=== PATIENT | female | born 1950 | race Caucasian/White ===

== ENCOUNTER 2020-07-10 21:15 | Inpatient (IN) | payer BC ==
[~2020-07-10] VITALS: Ht 167.6 cm; Wt 77.2 kg
--- NOTE | 2020-07-10 21:22 | NUR ---
Patient came to ER with family. C/O shortness of breath x 2 days. Per patient reported, patient had shortness of breath for 2 days, Hx COPD and Asthma, patient used [facility] one hour ETA. A/O,X4, shortness of breath, wheezing right upper lobe, oxygen sat 91 %RA, place patient on monitoring manager and pulse ox.
--- NOTE | 2020-07-10 21:22 | NUR ---
Patient to ER bed 5 to gown for evaluation. Side rails up.
--- NOTE | 2020-07-10 21:25 | NUR ---
ER Dr. Sadler at bedside examining patient.
[2020-07-10] MEDS ORDERED: IPRATROPIUM/ALBUTEROL SULFATE 3 ML AMPUL.NEB (DUONEB) INH ONE (21:30)
--- NOTE | 2020-07-10 21:31 | NUR ---
RT at bedside for Breathing treatment.
[2020-07-10 21:32] VITALS: BP_SYST 151
[2020-07-10] MEDS ORDERED: methylPREDNISolone SOD SUCC/PF 62.5 MG/ML VIAL IM ONE (21:45)
--- NOTE | 2020-07-10 21:46 | NUR ---
RT at bedside for ABG.
--- NOTE | 2020-07-10 21:57 | NUR ---
X-ray at bedside.
--- NOTE | 2020-07-10 22:10 | NUR ---
swabbed Covid -19 and sent to lab.
[2020-07-10] MEDS ORDERED: CLOP75TA32 PO (22:13)
[2020-07-10 22:19] LABS: BASOPHILS # (AUTO) 0.1 K/uL (0.0-0.2); BASOPHILS % (AUTO) 0.6 % (0.0-2.0); EOSINOPHILS # (AUTO) 0.2 K/uL (0.0-0.4); HEMATOCRIT 33.1 % (36-48); HEMOGLOBIN 11.4 g/dL (12.0-16.0); LYMPHOCYTES # (AUTO) 1.5 K/uL (1.0-5.5); LYMPHOCYTES % (AUTO) 14.6 % (20.5-51.5); MEAN CORPUSCULAR HEMOGLOBIN 30 pg (27-31); MEAN CORPUSCULAR HGB CONC 34 % (32-36); MEAN CORPUSCULAR VOLUME 87 fL (79.0-98.0); MONOCYTES # (AUTO) 0.9 K/uL (0.0-1.0); MONOCYTES % (AUTO) 8.7 % (1.7-9.3); NEUTROPHILS # (AUTO) 7.6 K/uL (1.8-7.7); NEUTROPHILS % (AUTO) 74.1 % (40.0-70.0); PLATELET COUNT (AUTO) 205 K/uL (130-430); RED BLOOD CELL COUNT(AUTO) 3.81 MIL/uL (4.2-6.2); RED CELL DISTRIBUTION WIDTH 13.8 % (9.0-15.0); WHITE BLOOD COUNT (AUTO) 10.2 K/uL (4.8-10.8)
[2020-07-10] MEDS ORDERED: METO-442 PO (22:19)
[2020-07-10] MEDS ORDERED: CYM30 PO (22:19)
[2020-07-10] MEDS ORDERED: ASPI-1155 PO (22:19)
[2020-07-10] MEDS ORDERED: SIMV20TA2 PO (22:19)
[2020-07-10] MEDS ORDERED: TRAM100T28 PO (22:19)
[2020-07-10] MEDS ORDERED: ALBMDI INH (22:19)
[2020-07-10] MEDS ORDERED: LISI-600 PO (22:19)
[2020-07-10] MEDS ORDERED: AMIT25TA9 PO (22:19)
--- NOTE | 2020-07-10 22:19 | NUR ---
Medication reconciliation completed with information provided by patient. Any prior medication reconciliation on file was reviewed and corrected.
[2020-07-10 22:36] LABS: CREATININE 7.06 mg/dL (0.55-1.30); POTASSIUM 5.4 mmol/L (3.5-5.1)
[2020-07-10 22:42] LABS: ALBUMIN 3.2 g/dL (3.4-4.8); TOTAL BILIRUBIN 0.5 mg/dL (0.0-1.0)
[2020-07-10 22:58] LABS: PROTHROMBIN TIME 10.6 SECS (9.5-12.5)
[2020-07-10] MEDS ORDERED: cefTRIAXone 1 GM in D5W 50 ML IV ONE (23:15)
[2020-07-10] MEDS ORDERED: AZITHROMYCIN 500 MG in NS 250 ML IV ONE (23:15)
--- NOTE | 2020-07-10 23:30 | NUR ---
Blood for labwork drawn from train electronic technician. Patient tolerated well.
[2020-07-10] MEDS ORDERED: cefTRIAXone 1 GM VIAL ONE (23:39)
[2020-07-10] MEDS ORDERED: AZITHROMYCIN 500 MG/VIAL (ZITHROMAX) IV ONE ×2 (23:40→23:41)
[2020-07-10 23:45] LABS: CKMB RELATIVE INDEX 1.6 (0.0-2.9)
[2020-07-11] VITALS (7 sets, daily range): BP systolic 157–199
[2020-07-11] MEDS ORDERED: NACL 0.9% 1,000 ML IV ONE
--- NOTE | 2020-07-11 | NUR ---
Removed IV right wrist, # 22 gauge angiocath placed to right forearm. Use of asceptic technique. Opsite placed over site. Blood return noted. Blood for lab drawn from site. Flushed with 10 cc of normal saline. No evidence of infiltration noted. Patient tolerated well.
--- NOTE | 2020-07-11 00:39 | NUR ---
Patient will be admitted to care of Dr. Adams. Admitted to Tele unit. Will go to room 122B. Belongings list completed. Complete and up to date summary report printed. SBAR report to be given at bedside with opportunity for questions.
--- NOTE | 2020-07-11 00:59 | NUR ---
ADMISSION NOTE Received patient from ER via gurney. Patient admitted with diagnosis of RENAL FAILURE, POSSIBLE COVID-19. Patient is awake, alert, oriented X 4. Patient oriented to hospital room, call light, toileting, pain management and safety-teach back done. Patient informed that BRANT will be HER nurse and that their room number is 122B. Personal belongings checked and Belongings List documented. Call light within reach.
--- NOTE | 2020-07-11 01:09 | NUR ---
CONSULT: CONSULT CALLED FOR DR. MARIN LEYVA I SPOKE WITH RHONDA HUA REASON FOR CONSULT: HX MO AND STENT REQUESTING CONSULT: DR MARIN Hayward DOCUMENT MANAGEMENT TECHNICIAN PHONE NUMBER: [phone]
--- NOTE | 2020-07-11 01:11 | NUR ---
CONSULT: CONSULT CALLED FOR DR. GRIDER I SPOKE WITH BOO HUA REASON FOR CONSULT: RENAL FAILURE REQUESTING CONSULT: DR. MARIN Hayward LOG DRIVER PHONE NUMBER: [phone]
--- NOTE | 2020-07-11 02:15 | NUR ---
HYGIENE CARE NOTE HYGIENE CARE IS PROVIDED AT THIS TIME, FRESH GOWN, UNDERWEAR, AND LINENS ARE PROVIDED. PATIENT IS REPOSITIONED FOR COMFORT. PATIENT TOLERATED WELL. CALL LIGHT PLACED WITHIN REACH. BED IS LOCKED, ALARMED, AND AT THE LOWEST LEVEL.
--- NOTE | 2020-07-11 02:30 | NUR ---
BLADDER SCAN PATIENT VERBALIZED URGE TO PEE, SHE WAS ASSISTED WITH THE BEDPAN WELL BEDSIDE COMMODE, SHE STATES SHE IS "UNABLE TO GO". BLADDER SCAN PERFORMED AT THIS TIME SHOWED ONLY 273 ML URINE RETENTION. SHE IS REPOSITIONED BACK INTO BED FOR COMFORT. CALL LIGHT PLACED WITHIN REACH. BED IS LOCKED, ALARMED, AND AT THE LOWEST LEVEL.
--- NOTE | 2020-07-11 04:30 | NUR ---
SLEEPING PRONE POSITION NOTE PATIENT IS SLEEPING IN PRONE POSITION EDUCATED. SHE IS STABLE, NO SIGNS OF RESPIRATORY DISTRESS. CALL LIGHT IS WITHIN REACH. BED IS LOCKED, ALARMED, AND AT THE LOWEST LEVEL.
--- NOTE | 2020-07-11 04:31 | NUR ---
DR. SIERRA CONSULT: HE DO NOT WANT TO BE CALLED FOR CONSULT HE SAID HE CAN SEE HIS CONSULTS AUTOMATICALLY
--- NOTE | 2020-07-11 05:30 | NUR ---
BED ALARM REFUSED/ SAFETY EDUCATION PATIENT REFUSES BED ALARM AT THIS TIME DESPITE EDUCATIONAL EFFORTS, WILL CONTINUE TO ENCOURAGE SAFETY EDUCATION AND ROUND FREQUENTLY FOR SAFETY. PATIENT IS ASSISTED TO BEDSIDE COMMODE WITHIN MINIMAL ASSIST AT THIS TIME, SHE WAS ABLE TO MAKE A VOID ONCE RN LEFT THE ROOM, PATIENT STATES SHE IS "UNABLE TO GO WHEN SOMEONE IS WATCHING OR NEARBY". BABY MONITOR WAS USED TO MONITOR HER SAFETY MORE CLOSELY.
--- NOTE | 2020-07-11 06:11 | NUR ---
PAGED I PAGED DR. MARIN Thomson SPOKE WITH CRITICAL ACCESS HOSPITALKIERAN HUA
--- NOTE | 2020-07-11 06:15 | NUR ---
COMMUNICATION W/ DR. FUNES Y. DR. FUNES HAS PAGED BACK AT THIS TIME, IT WAS COMMUNICATED TO HIM THAT PATIENT'S LAB WORK COMPLETED IN E.R. SHOWS ELEVATED BUN, CR, BUN, AND PATIENT'S RESPIRATORY SOUNDS ARE WET WITH CRACKLES. HAS REQUESTED TO D/C NORMAL SALINE ORDERED BY MD IN ER. ORDER READ BACK, VERIFIED, AND ENTERED. DOSE WILL NOT BE GIVEN.
--- NOTE | 2020-07-11 06:45 | NUR ---
CLOSING NOTE PATIENT HAD SOME SHORTNESS OF BREATH MOVING FROM GURNEY TO BED WHEN RECEIVED FROM ER. SHE WAS ENCOURAGED TO SLEEP IN PRONE POSITION, PATIENT IS NO LONGER SHORT OF BREATH SINCE SLEEPING IN PROBE POSITION. SHE SLEPT WELL THROUGHOUT THE SHIFT. AT THIS TIME, PATIENT IS RESTING IN BED, STABLE, NO SIGNS OF RESPIRATORY DISTRESS. CALL LIGHT IS WITHIN REACH. BED IS LOCKED, ALARMED, AND AT THE LOWEST LEVEL. FALL, SAFETY, ASPIRATION, ISOLATION, AND RESPIRATORY PRECAUTIONS HAVE BEEN TAKEN THROUGHOUT THE SHIFT. WILL CONTINUE TO MONITOR UNTIL SHIFT REPORT IS GIVEN AT BEDSIDE TO AM NURSE.
--- NOTE | 2020-07-11 06:55 | NUR ---
DR. GRIDER ROUNDS DR. GRIDER IS AT BEDSIDE AT THIS TIME MAKING ROUNDS. HE IS SPEAKING TO THE PATIENT.
--- NOTE | 2020-07-11 08:00 | NUR ---
Initial notes In bed, awake and oriented. afebrile, has cough. uses bedside commode. On O2 3l. Update plan of care and consults. call light within reach. Enc to call for help as needed.
[2020-07-11] MEDS ORDERED: METOPROLOL SUCCINATE 25 MG TAB.SR.24H (TOPROL XL) PO SCH (09:00)
--- NOTE | 2020-07-11 09:15 | NUR ---
Paged pt wants breathing treatment, patient stated that she is having hard time breathing, O2 sat is 95% in 2l. Paged oral therapist at this time.
[2020-07-11] MEDS ORDERED: IPRATROPIUM/ALBUTEROL SULFATE 3 ML AMPUL.NEB (DUONEB) INH ONE (09:30)
[2020-07-11] MEDS ORDERED: IPRATROPIUM/ALBUTEROL SULFATE 3 ML AMPUL.NEB (DUONEB) ONE (09:53)
[2020-07-11] MEDS: IPRATROPIUM/ALBUTEROL SULFATE 3 ML AMPUL.NEB (DUONEB) INH SCH ×4 (11:00→23:42)
[2020-07-11] MEDS ORDERED: ASPIRIN 81 MG TAB.CHEW PO ONE (12:00)
--- NOTE | 2020-07-11 12:00 | NUR ---
Notes lunch provided, patient stated that she does not have any appetite, enc patient to eat. No acute distress noted. Enc. to call for help as needed.
[2020-07-11] MEDS: lisinopriL 20 MG TABLET PO SCH ×2 (12:42→20:22)
[2020-07-11] MEDS: DULoxetine HCL 30 MG CAPSULE.DR (CYMBALTA) PO SCH ×2 (12:42→20:21)
[2020-07-11] MEDS: METOPROLOL TARTRATE 50 MG TABLET PO SCH ×2 (12:42→20:23)
--- NOTE | 2020-07-11 14:30 | NUR ---
MD rounds Seen by Thermospray Operator at bedside
[2020-07-11] MEDS ORDERED: methylPREDNISolone SOD SUCC 40 MG/ML VIAL IVP ONE (15:00)
--- NOTE | 2020-07-11 16:00 | NUR ---
Notes Sitting at the edge of the bed, wants breathing treatment. Respiratory called. patient seems so anxious. O2 sat at 96% in 3l.
--- NOTE | 2020-07-11 17:52 | NUR ---
MD ROUNDS here and made aware of patient's high blood pressure and wants something for anxiety.
[2020-07-11] MEDS ORDERED: HYDROcodone/ACETAMIN 5-325 MG TAB (NORCO/ VICODIN) PO PRN (18:00)
[2020-07-11] MEDS ORDERED: NALOXONE HCL 0.4 MG/ML AMP (NARCAN) IVP PRN ×2 (18:00)
[2020-07-11] MEDS: methylPREDNISolone SOD SUCC 40 MG/ML VIAL IVP SCH ×2 (18:07→23:03)
[2020-07-11] MEDS ORDERED: LEVOFLOXACIN 500 MG/D5W 100 ML IV ONE (19:00)
[2020-07-11] MEDS: HYDROcodone/ACETAMIN 10-325 MG TAB PO PRN (20:14)
[2020-07-11] MEDS: AMITRIPTYLINE HCL 25 MG TABLET (ELAVIL) PO SCH (20:14)
[2020-07-11] MEDS: SIMVASTATIN 20 MG TABLET PO SCH (20:14)
[2020-07-11] MEDS: CLOPIDOGREL BISULFATE 75 MG TABLET PO SCH (20:14)
[2020-07-11] MEDS: hydrALAZINE HCL 20 MG/ML VIAL IVP PRN (23:04)
[2020-07-12] MEDS: HYDROcodone/ACETAMIN 10-325 MG TAB PO PRN ×4 (01:38→20:11)
[2020-07-12] MEDS: ONDANSETRON HCL 4 MG/2 ML VIAL IVP PRN ×2 (01:44→20:03)
--- NOTE | 2020-07-12 01:52 | NUR ---
RN ROUNDS Patient moved to room 118A, all belongings transferred, patient placed on 02 3L NC, c/o of pain, medicated with norco 1 tab for pain management, educated on fall precautions, patient nauseated, medicated with zofran IVP for nausea, ice chips provided, will reassess patient shortly.
[2020-07-12] MEDS: IPRATROPIUM/ALBUTEROL SULFATE 3 ML AMPUL.NEB (DUONEB) INH SCH ×6 (03:38→23:39)
--- NOTE | 2020-07-12 04:04 | NUR ---
RN ROUNDS Patient resting quietly in bed, no sob noted, remains on 02 3L NC, call light within reach, fall and safety measures in place.
[2020-07-12] MEDS: methylPREDNISolone SOD SUCC 40 MG/ML VIAL IVP SCH ×4 (05:15→22:53)
--- NOTE | 2020-07-12 06:38 | NUR ---
RN ROUNDS Patient resting quietly in bed, no sob noted, remains on 02 3L NC, due medications administered, needs attended through out the shift, call light within reach, fall and safety measures maintained, will continue to monitor until report given to am nurse.
[2020-07-12 07:07] LABS: BASOPHILS % (AUTO) 0.2 % (0.0-2.0); HEMATOCRIT 31.2 % (36-48); LYMPHOCYTES # (AUTO) 0.4 K/uL (1.0-5.5); LYMPHOCYTES % (AUTO) 3.8 % (20.5-51.5); MEAN CORPUSCULAR HEMOGLOBIN 31 pg (27-31); MEAN CORPUSCULAR HGB CONC 35 % (32-36); MEAN CORPUSCULAR VOLUME 86 fL (79.0-98.0); MONOCYTES # (AUTO) 0.3 K/uL (0.0-1.0); MONOCYTES % (AUTO) 2.7 % (1.7-9.3); NEUTROPHILS % (AUTO) 93.3 % (40.0-70.0); PLATELET COUNT (AUTO) 203 K/uL (130-430); RED BLOOD CELL COUNT(AUTO) 3.62 MIL/uL (4.2-6.2); RED CELL DISTRIBUTION WIDTH 13.5 % (9.0-15.0); WHITE BLOOD COUNT (AUTO) 10.7 K/uL (4.8-10.8)
[2020-07-12 07:18] LABS: ALANINE AMINOTRANSFERASE 19 U/L (12-78); ALBUMIN 3.1 g/dL (3.4-4.8); ANION GAP 14 (5-15); ASPARTATE AMINOTRANSFERASE 25 U/L (10-37); CALCIUM 8.4 mg/dL (8.4-11.0); CREATININE 6.73 mg/dL (0.55-1.30); GLUCOSE 136 mg/dL (70-99); PHOSPHORUS 5.8 mg/dL (2.7-4.5); TOTAL BILIRUBIN 0.4 mg/dL (0.0-1.0); UREA NITROGEN, BLOOD 82 mg/dL (8-21)
[2020-07-12 08:19] LABS: CHLORIDE 83 mmol/L (98-107); SODIUM SERUM 115 mmol/L (136-145)
[2020-07-12 08:20] LABS: GFR AFRICAN AMERICAN 8 mL/min (>90)
[2020-07-12] MEDS: ASPIRIN 81 MG TAB.CHEW PO SCH (08:41)
[2020-07-12] MEDS: DULoxetine HCL 30 MG CAPSULE.DR (CYMBALTA) PO SCH ×2 (08:42→20:10)
[2020-07-12] MEDS: lisinopriL 20 MG TABLET PO SCH ×2 (08:42→22:53)
[2020-07-12] MEDS: METOPROLOL TARTRATE 50 MG TABLET PO SCH ×2 (08:43→22:54)
--- NOTE | 2020-07-12 08:52 | NUR ---
am meds given and pain meds given. pt stated that she already told the night nurse that she is agreeable with dialysis.
[2020-07-12] MEDS ORDERED: FUROSEMIDE 40 MG/4 ML VIAL IVP ONE ×2 (09:30→15:30)
[2020-07-12] MEDS ORDERED: SODIUM POLYSTYRENE SULFONATE 15 GM/60 ML UDBTL PO ONE ×2 (09:30→22:15)
--- NOTE | 2020-07-12 09:50 | NUR ---
Nutrition Update Sav scale 17 noted. Pt admitted for Renal Failure and Possible COVID-19 Diet: Cardiac Diet BMI: 27.5 kg/m2 RD to follow per nutrition care standards.
--- NOTE | 2020-07-12 10:10 | NUR ---
CONSULT SURGERY JEREMY CATH PLACEMENT TORI JUDD [phone] S/W [facility]
[2020-07-12 10:15] VITALS: BP_SYST 161
[2020-07-12 12:15] VITALS: BP_SYST 155
--- NOTE | 2020-07-12 12:41 | NUR ---
PT GIVEN PAIN MED FOR HER BACK PAIN AND LEG PAIN. WILL CONT TO MONITOR PT.
[2020-07-12] MEDS ORDERED: HEPARIN SODIUM,PORCINE 5,000 UNITS/ML VIAL IV ONE (13:30)
--- NOTE | 2020-07-12 13:31 | NUR ---
HIGH ALERT NOTE: Called Dr. TORI WILSON back at [phone] identified within the medical roster to verify physician authenticity FOR HEPARIN ORDER.
--- NOTE | 2020-07-12 15:02 | NUR ---
Dietitian Recommendations *Recommend Renal Standard Diet to better meet pt's needs *Recommend provide Nepro BID to provide additional 850 kcal, 38 g protein to promote PO intake. Please see Nutrition Assessment for details. ORIANA MACK
[2020-07-12 16:09] VITALS: BP_SYST 108
[2020-07-12] MEDS: BENZOCAINE/MENTHOL 1 EACH LOZENGE MM PRN (17:49)
--- NOTE | 2020-07-12 17:51 | NUR ---
PT GIVEN CEPACOL FOR C/O PAIN ON THROAT DURING SWALLOWING.
--- NOTE | 2020-07-12 19:30 | NUR ---
RN ROUNDS Received report from day nurse, patient sitting up in bed, awake, denies any pain or discomfort, herbert catheter to left jugular bleeding. Reinforced dressing. Hygiene care provided. Vitals stable.
--- NOTE | 2020-07-12 19:43 | NUR ---
pt endorsed to night nurse vera pt on stable condition. dialysis nurse made aware that lawrence pt bled from the [place] site, she said she will look at it, spoke with gildardo of radiology and they will read the xray for hd.
[2020-07-12 20:00] VITALS: BP_SYST 130
[2020-07-12] MEDS: SIMVASTATIN 20 MG TABLET PO SCH (20:10)
[2020-07-12] MEDS: AMITRIPTYLINE HCL 25 MG TABLET (ELAVIL) PO SCH (20:10)
--- NOTE | 2020-07-12 20:55 | NUR ---
Dialysis Dialysis nurse at bedside starting Dialysis, Per karsten George to use catheter, patients due medications administered, given norco 1 tab for pain management, vitals stable.
[2020-07-12] MEDS: CLOPIDOGREL BISULFATE 75 MG TABLET PO SCH (21:00)
--- NOTE | 2020-07-12 21:20 | NUR ---
Spoke to Dr. Reynolds over the phone, ordered stat chem 7 to check for patients potassium level. Will carry out. Dialysis nurse unable to start dialysis due to catheter malfunctioning. Dr. Feliz and Dr. Reynolds made aware of dialysis not completed.
[2020-07-12 21:44] LABS: CALCIUM 7.6 mg/dL (8.4-11.0); CREATININE 7.1 mg/dL (0.55-1.30)
[2020-07-12 21:48] LABS: POTASSIUM 6.7 mmol/L (3.5-5.1)
--- NOTE | 2020-07-12 22:10 | NUR ---
Called Dr. Reynolds with critical lab values of NA and K, new medication orders received.
[2020-07-12] MEDS ORDERED: SODIUM CHLORIDE 3% *HI-ALERT* 500 ML IV SCH (22:15)
--- NOTE | 2020-07-12 22:23 | NUR ---
HIGH ALERT NOTE: Called Dr. Reynolds back at [phone] identified within the medical roster to verify physician authenticity.
[2020-07-12] MEDS ORDERED: SODIUM CHLORIDE 3% *HI-ALERT* 500 ML IV ONE (23:05)
[2020-07-13] VITALS (19 sets, daily range): BP systolic 106–143
--- NOTE | 2020-07-13 00:10 | NUR ---
RN ROUNDS Patient awake, in no distress, remains on 02 3L NC, started on IVF per md order, due medications administered, patient tolerated well, educated on use and side effects of the medications, patient verbalized understanding. Vital signs stable.
--- NOTE | 2020-07-13 01:30 | NUR ---
RN ROUNDS Patient resting quietly in bed, breathing is even and unlabored, remains on 02 3L NC, reinforced dressing on left herbert catheter, patient tolerated well. Call light within reach, safety measures in place.
[2020-07-13] MEDS: HYDROcodone/ACETAMIN 10-325 MG TAB PO PRN ×3 (01:48→20:25)
--- NOTE | 2020-07-13 02:15 | NUR ---
PAIN Patient complaining of pain, medicated with norco for pain management, helped reposition patient, will reassess patients pain level shortly.
[2020-07-13] MEDS: IPRATROPIUM/ALBUTEROL SULFATE 3 ML AMPUL.NEB (DUONEB) INH SCH ×6 (03:00→23:00)
--- NOTE | 2020-07-13 04:18 | NUR ---
RN ROUNDS Patient resting quietly in bed, breathing is even and unlabored, remains on 02 3L NC, call light within reach, safety measures in place.
[2020-07-13] MEDS: methylPREDNISolone SOD SUCC 40 MG/ML VIAL IVP SCH ×3 (05:13→18:18)
--- NOTE | 2020-07-13 06:20 | NUR ---
TORI DUNBAR AT [phone] SPOKE WITH LESTER.
--- NOTE | 2020-07-13 06:29 | NUR ---
2ND PAGE OUT TO TORI ROCHA AT [phone] SPOKE WITH ISIDRA.
--- NOTE | 2020-07-13 06:48 | NUR ---
MD WEST PAGETORI MCCONNELL AT [phone] SPOKE WITH
[2020-07-13 06:58] LABS: BASOPHILS % (AUTO) 0.2 % (0.0-2.0); HEMATOCRIT 31.4 % (36-48); HEMOGLOBIN 10.7 g/dL (12.0-16.0); LYMPHOCYTES # (AUTO) 0.4 K/uL (1.0-5.5); LYMPHOCYTES % (AUTO) 3.6 % (20.5-51.5); MEAN CORPUSCULAR HEMOGLOBIN 30 pg (27-31); MEAN CORPUSCULAR HGB CONC 34 % (32-36); MEAN CORPUSCULAR VOLUME 87 fL (79.0-98.0); MONOCYTES # (AUTO) 0.7 K/uL (0.0-1.0); MONOCYTES % (AUTO) 5.5 % (1.7-9.3); NEUTROPHILS % (AUTO) 90.7 % (40.0-70.0); PLATELET COUNT (AUTO) 231 K/uL (130-430); RED BLOOD CELL COUNT(AUTO) 3.59 MIL/uL (4.2-6.2); RED CELL DISTRIBUTION WIDTH 13.7 % (9.0-15.0); WHITE BLOOD COUNT (AUTO) 12.2 K/uL (4.8-10.8)
--- NOTE | 2020-07-13 07:21 | NUR ---
RAPID RESPONSE Patient was c/o of sob and not being able to swallow, rt at bedside, rapid response was called. Md was paged. Patient herbert catheter bleeding, dressing removed and hemostat was placed. Patient transferred to ICU. Dr. Feliz made aware of patients status and no new orders at this time.
[2020-07-13 07:25] LABS: CALCIUM 7.4 mg/dL (8.4-11.0); PHOSPHORUS 7.4 mg/dL (2.7-4.5)
--- NOTE | 2020-07-13 07:40 | NUR ---
OPENING NOTE Patient resting in the bed. No acute distress. On O2, FIO2 60% via aerosol mask. O2 sat=88%. Skin warm and dry to touch. IV intact to RFA, no redness, no swelling, patent, on 3% NS at 20ml/hr, infusing well. Left IJ Dusty cath intact, oozing of blood still noted, pressure dressing in placed, sand bag applied. Safety measure maintained. Call light within reached. Bed locked in low position, side rails up. Will continue to monitor.
--- NOTE | 2020-07-13 07:48 | NUR ---
Patient Condition late entry due to patient care 1804 Called in to theroom by RN to check on patient. Patient lying in bed, high back rest, alert and oriented, having difficulty of breathing,cold and clammy to touch. patient is on a 60% o2 via mask with saturation of 92 %. Stat ABG done, Mason called. Pressure dressing to the left side of the neck where herbert catheter was oozing with bright red blood. pressure dressing release as it is compressing the necK. Bleeding on the side continue to ooz. hemostat applied, with pressure dressing. Rapid response was called and Dr Feliz Was notified by RN
[2020-07-13 08:16] LABS: CREATININE 7.7 mg/dL (0.55-1.30)
[2020-07-13 08:17] LABS: POTASSIUM 6.3 mmol/L (3.5-5.1)
[2020-07-13] MEDS ORDERED: HEPARIN SODIUM,PORCINE 5,000 UNITS/ML VIAL ONE (08:19)
--- NOTE | 2020-07-13 08:36 | NUR ---
SEEN AND EXAMINED BY LINDA ROCK WITH PRN BIPAP ORDER RECEIVED. PER DR. CHAPARRO, PATIENT O2 SAT >88% IS OKAY BECAUSE THE PATIENT IS COPD.
--- NOTE | 2020-07-13 08:58 | NUR ---
JERMEY CATH REPLACEMENT CONFIRMED BY CHEST X-RAY Jose Roberto George done Jeremy cath replacement to left IJ at bedside and placement confirmed by chest x-ray.
[2020-07-13] MEDS: DULoxetine HCL 30 MG CAPSULE.DR (CYMBALTA) PO SCH ×2 (09:00→20:18)
[2020-07-13] MEDS: ASPIRIN 81 MG TAB.CHEW PO SCH (09:00)
[2020-07-13] MEDS: METOPROLOL TARTRATE 50 MG TABLET PO SCH ×2 (09:00→20:20)
[2020-07-13] MEDS: lisinopriL 20 MG TABLET PO SCH (09:00)
--- NOTE | 2020-07-13 09:00 | NUR ---
Physical Therapy order was received, however, patient was transferred to the ICU this morning. Plan: Await a new order for PT evaluation when the patient is medically appropriate.
[2020-07-13 09:05] LABS: C-REACTIVE PROTEIN QUANT 3.9 mg/dL (0-0.5)
[2020-07-13] MEDS: LORazepam 2 MG/ML VIAL IVP PRN (09:19)
[2020-07-13 09:29] LABS: ERYTHROCYTE SEDIMENTATION RATE 23 MM/HR (0-20)
--- NOTE | 2020-07-13 09:50 | NUR ---
HEMODIALYSIS STARTED Patient resting in the bed. No acute distress. Dusty cath intact to left IJ, no active bleeding noted at this time. Pressure dressing in placed. Hemodialysis started. Dialysis stay with patient at bedside. Safety measure maintained. Call light within reached. Continue to monitor.
--- NOTE | 2020-07-13 10:40 | NUR ---
RT NOTES placed pt on bipap per relief charge nurse, pt undergoing dialysis. abnormal breathing pattern cont. despite being on bipap. relief charge nurse aware.
--- NOTE | 2020-07-13 10:45 | NUR ---
SEEN AND EXAMINED BY JAILENE TRINIDAD. PER DR. GRIDER, PATIENT NEEDS BIPAP. RT PLACED PATIENT ON BIPAP WITH RATE=14, FIO2=60% 06/13. PATIENT TOLERATED WELL. O2 SAT=94% AT THIS TIME.
--- NOTE | 2020-07-13 11:58 | NUR ---
HEMODIALYSIS COMPLETED Patient resting in the bed with eye closed. BP stable. Hemodialysis completed with 1.8L out. Dusty cath intact to left IJ, per dialysis nurse to keep pressure dressing not to remove it. No active bleeding noted at this time. Safety measure maintained. Call light within reached. Continue to monitor.
--- NOTE | 2020-07-13 13:15 | NUR ---
SEEN AND EXAMINED BY BUSHRA RICH.
--- NOTE | 2020-07-13 15:55 | NUR ---
RT NOTES Pt off of bipap and on 6L oxymizer for meal, no adverse reactions noted.
--- NOTE | 2020-07-13 17:37 | NUR ---
NOTED PATIENT HAS HOME MEDS INSIDE PURSE. TOTAL 9 BOTTLES OF MEDS, 1 EYE DROP, 1 CREAM, 1 INHALER. HOME MEDS DEPOSITED IN PHARMACY.
[2020-07-13] MEDS: LEVOFLOXACIN 250 MG/D5W 50 ML IV SCH (18:19)
--- NOTE | 2020-07-13 18:30 | NUR ---
CHG BATH DONE. PATIENT TOLERATED WELL.
--- NOTE | 2020-07-13 19:15 | NUR ---
change of shift.;mere present inquired of the pt's status.anthony day-shift.apprised of the pt's general status. vq-scan results,us;doppler to be performed.heparin drip infusing@1000-u/hr.subsequent ptt in the evening.no new orders per posited.pt.presents respiratory status labored;compromised.pt.receiving the administration o2 therapy via oximizer; @the rate;6l/min.o2-sat%=95%.pt.presents hemo-dialysis status;recent status.h/d access herbert cath;location;lt.inj.pt. submitted to h/d therapy:07/13/20. 1.8l removed.general status stable.call light/telephone w/in access of the pt. Addendum: 07/14/20 at 0225 by Bryant Desai RN above note intented for ptkadi,beneficio:bed#2
--- NOTE | 2020-07-13 19:20 | NUR ---
CLOSING NOTE Patient resting in the bed. No acute distress. Continue on O2 6L/min via oxymizer. Dusty cath intact to left IJ, pressure dressing intact, no active bleeding noted. All needs met. Safety measure maintained. Call light within reached. Bed locked in low position, side rails up. Will endorse to night nurse.
--- NOTE | 2020-07-13 20:00 | NUR ---
pt.assessed.v/s assessed values w/in normal limits.02-sat%=93%.no c/o pain,nausea.iv access intact;patent iv fluids:ns-flush infusing@tko rate.i have apprised the pt.that snacks/beverages are available w/in the shift.no requests posited@thishour.pt.capable to reposition self.general status stable.respiratory status labored.call light/telephone w/in acces of the pt.
[2020-07-13] MEDS: AMITRIPTYLINE HCL 25 MG TABLET (ELAVIL) PO SCH (20:19)
[2020-07-13] MEDS: SIMVASTATIN 20 MG TABLET PO SCH (20:19)
--- NOTE | 2020-07-13 20:30 | NUR ---
pt.requested medication;pain.i have administered norco;10/325mg po per the pain level parameters.to assess the efficacy of the pain medication per pain mgx protocol.
--- NOTE | 2020-07-13 21:00 | NUR ---
2100pmedications administered.pt.capable to ingest the po medications w/out difficulty.
--- NOTE | 2020-07-13 22:00 | NUR ---
pt.assessed.v/s assessed values w/n normal limits.o2-sat%=93%no c/o pain,nausea.no requests posited@this hour. pt.capable to reposition self.call light/telephone w/in access of the pt.
[2020-07-14] VITALS (20 sets, daily range): BP systolic 128–184
--- NOTE | 2020-07-14 | NUR ---
pt.assessed.v/s assessed values noted.o2-sat%,bp.b/p status elevated.i have administered apresoline:10mg ivp.to assess the efficacy of the medication per protocol.pt.had requested beverage;soda.i have provided the soda and a blanket.no additional requests posited@this hour. general status stable.respiratory status labored;02-sat%=93%.pt.capable to reposition self.call light/telephone w/in access of the pt. Addendum: 07/14/20 at 0220 by Bryant Desai RN i have administered solumedrol:50mg ivp midnight dose via peripheral iv access.
[2020-07-14] MEDS: methylPREDNISolone SOD SUCC 40 MG/ML VIAL IVP SCH ×4 (00:14→17:02)
[2020-07-14] MEDS: hydrALAZINE HCL 20 MG/ML VIAL IVP PRN ×3 (00:17→14:34)
[2020-07-14] MEDS: LORazepam 2 MG/ML VIAL IVP PRN ×2 (01:26→05:10)
--- NOTE | 2020-07-14 01:30 | NUR ---
pt.stated she felt anxious;pt.presents affect;agitation.i have administered ativan;1mg ivp.to assess the efficacy of the medication.per protocol.
--- NOTE | 2020-07-14 02:00 | NUR ---
pt.assessed.v/s assessed.o2-sat%=96%.i have assisted the pt.to the orthopnic position:to facilitate breathing pattern.no c/o pain,nausea.no requests posited@this hour.pt.capable to reposition self.general status stable.call light/telephpone w/in access of the pt.
[2020-07-14] MEDS: IPRATROPIUM/ALBUTEROL SULFATE 3 ML AMPUL.NEB (DUONEB) INH SCH ×6 (03:58→22:59)
--- NOTE | 2020-07-14 04:00 | NUR ---
pt.assessed.v/s assessed o2-sat%=93%.per flacc pain mgx pt.absent facial grimaces/body posturing.general status stable. respiratory status;labored.pt.capable to reposition self.call light/telephone win access of the pt.
--- NOTE | 2020-07-14 06:00 | NUR ---
pt.assessed.i have administered ativan;1mg.pt.presented affect;restless/agitation.i have administered apresoline:10mg ivp; b/p presented elevated status.o2-sat%=93%.call light/telephone placed w/in access of the pt.
[2020-07-14 07:26] LABS: HEMATOCRIT 29.4 % (36-48); HEMOGLOBIN 10.3 g/dL (12.0-16.0); LYMPHOCYTES # (AUTO) 0.3 K/uL (1.0-5.5); MEAN CORPUSCULAR HEMOGLOBIN 30 pg (27-31); MEAN CORPUSCULAR HGB CONC 35 % (32-36); MEAN CORPUSCULAR VOLUME 86 fL (79.0-98.0); MONOCYTES # (AUTO) 0.5 K/uL (0.0-1.0); MONOCYTES % (AUTO) 4.7 % (1.7-9.3); NEUTROPHILS # (AUTO) 9.3 K/uL (1.8-7.7); NEUTROPHILS % (AUTO) 92.3 % (40.0-70.0); PLATELET COUNT (AUTO) 194 K/uL (130-430); RED BLOOD CELL COUNT(AUTO) 3.43 MIL/uL (4.2-6.2)
--- NOTE | 2020-07-14 07:30 | NUR ---
Received patient awake alert oriented to person place and time. With O2 via oximizer 6L. O2 saturation 97% denies shortness of breath at this time. Attended to patients needs. With IV to right forearm intact no signs and symptoms of infiltration. continue to monitor
[2020-07-14 07:45] LABS: ALBUMIN 2.6 g/dL (3.4-4.8); C-REACTIVE PROTEIN QUANT 8.1 mg/dL (0-0.5); CALCIUM 7.5 mg/dL (8.4-11.0); CREATININE 6.61 mg/dL (0.55-1.30); TOTAL BILIRUBIN 0.5 mg/dL (0.0-1.0)
[2020-07-14 08:12] LABS: POTASSIUM 4.4 mmol/L (3.5-5.1)
[2020-07-14 08:16] LABS: ERYTHROCYTE SEDIMENTATION RATE 23 MM/HR (0-20)
[2020-07-14] MEDS: ASPIRIN 81 MG TAB.CHEW PO SCH (08:56)
[2020-07-14] MEDS: DULoxetine HCL 30 MG CAPSULE.DR (CYMBALTA) PO SCH ×2 (08:56→21:09)
--- NOTE | 2020-07-14 10:29 | NUR ---
Made rounds with Dr Chapa and Dr Adams at the bedside. Plan of care was discussed. Patient sleepy arousable when awakened. Ativan was given this morning by PM nurse. Continue to monitor. floor renovator at the bedside started HD as ordered. Dr Reynolds aware of BUN/Creatinine today.
[2020-07-14] MEDS ORDERED: HEPARIN SODIUM,PORCINE 5,000 UNITS/ML VIAL IVP SCH ×2 (11:15)
[2020-07-14] MEDS ORDERED: TUBERCULIN,PURIF.PROT.DERIV. 0.1 ML SYR ID ONE (11:15)
[2020-07-14] MEDS: METOPROLOL TARTRATE 50 MG TABLET PO SCH ×2 (13:10→21:06)
--- NOTE | 2020-07-14 14:00 | NUR ---
HD done as ordered. Denies respiratory distress O2 saturation 94-96% monitored BP closely. denies pain 0/10 scale no acute distress
--- NOTE | 2020-07-14 17:23 | NUR ---
Made rounds with Dr Adams at the bedside,plan of care was discussed with patient verbalized understanding. Dr Adams also updated patients son on the phone on patient condition. Patient more awake alert verbalized she is breathing better after the dialysis O2 saturation 97% on O2 [address] Adams was notified that patients BP 177/91 and that patient is a smoker. Awaiting new orders.
[2020-07-14] MEDS ORDERED: NICOTINE 14 MG/24 HR PATCH.TD24 TD ONE (19:00)
--- NOTE | 2020-07-14 19:18 | NUR ---
IV intact no sign and symptoms of infiltration. With O2 6 liters via oximizer HOB at 30 degrees. no respiratory distress O2 saturation 100% Fed patient meals with minimal assist. oral care done. pericare done frequently and applied skin moisture barrier cream. patient refuses SCD machine education was given. Report given to Rebecca MORGAN, transferred to telemetry as ordered. son was notified of transfer. All personal belongings was sent with patient. Call light within reach.
--- NOTE | 2020-07-14 19:20 | NUR ---
CHANGE OF SHIFT; pt. was transferred from ICU. report given by ICU nurse. post hemodialysis today. call light within reach, reoriented to room ,use of call light and bed control. O2 @ 6 liters per oximizer, HOB elevated.
--- NOTE | 2020-07-14 20:30 | NUR ---
NOTES: pt. noted to be shaky, feeling cold. RT here , given breathing treatment, O@ @ 6 liters oximizer, noted occ. bouts on non productive cough, short of breath on exertion. HOB elevated. IV lock on rt. forearm. left Dusty cath on jugular site for hemodialysis access. on plant maintenance worker and shows sinus rhythm borderline sinus tach. no complaints of pain nor discomfort at this time. call light within reach.
[2020-07-14] MEDS: SIMVASTATIN 20 MG TABLET PO SCH (21:05)
[2020-07-14] MEDS: AMITRIPTYLINE HCL 25 MG TABLET (ELAVIL) PO SCH (21:06)
[2020-07-14] MEDS: HYDROcodone/ACETAMIN 10-325 MG TAB PO PRN (21:17)
--- NOTE | 2020-07-14 21:20 | NUR ---
NOTES: pt. medications given including pain pill for c/o lower back pain and lower extremities. repositioned self for comfort. used BSC earlier with assist. for further assistance.
--- NOTE | 2020-07-14 23:30 | NUR ---
NOTES: RT at bedside, breathing treatment in progress. no distress.
[2020-07-15] MEDS: methylPREDNISolone SOD SUCC 40 MG/ML VIAL IVP SCH ×4 (00:15→21:39)
--- NOTE | 2020-07-15 00:19 | NUR ---
NOTES: awakened for due medication. no complaints manifested.
[2020-07-15 00:30] VITALS: BP_SYST 146
--- NOTE | 2020-07-15 02:00 | NUR ---
NOTES: pt. checked and sleeping. no distress.. call light within reach. O2 on.
--- NOTE | 2020-07-15 03:30 | NUR ---
NOTES: pt. awakened ,she taught its already morning. reoriented. ice water given. went back to sleep.
[2020-07-15] MEDS: IPRATROPIUM/ALBUTEROL SULFATE 3 ML AMPUL.NEB (DUONEB) INH SCH ×6 (03:41→23:40)
--- NOTE | 2020-07-15 05:20 | NUR ---
NOTES: IV site checked and leaking, asked nurse Danny to start another IV site. able to restart on left forearm with gauge #20, flushed.
--- NOTE | 2020-07-15 06:40 | NUR ---
CLOSING NOTES; for further care and assistance. IV lock on rt. forearm. kept on 6 liters O2 per oxymizer, short of breath on exertion, no respiratory distress. use BSC. call light within reach. will endorse to incoming shift.
[2020-07-15] MEDS ORDERED: BENZOCAINE/MENTHOL 1 EACH LOZENGE MM ONE (07:00)
[2020-07-15 07:11] LABS: HEPATITIS A AB, IgM Negative (Negative); HEPATITIS B CORE AB, IgM Negative (Negative); HEPATITIS B SURFACE AG Negative (Negative)
[2020-07-15 07:18] LABS: BASOPHILS % (AUTO) 0.1 % (0.0-2.0); LYMPHOCYTES # (AUTO) 0.5 K/uL (1.0-5.5); LYMPHOCYTES % (AUTO) 5.2 % (20.5-51.5); MEAN CORPUSCULAR HEMOGLOBIN 30 pg (27-31); MEAN CORPUSCULAR HGB CONC 34 % (32-36); MEAN CORPUSCULAR VOLUME 88 fL (79.0-98.0); MONOCYTES # (AUTO) 0.5 K/uL (0.0-1.0); MONOCYTES % (AUTO) 4.7 % (1.7-9.3); NEUTROPHILS # (AUTO) 9.3 K/uL (1.8-7.7); PLATELET COUNT (AUTO) 184 K/uL (130-430); RED BLOOD CELL COUNT(AUTO) 3.29 MIL/uL (4.2-6.2); WHITE BLOOD COUNT (AUTO) 10.3 K/uL (4.8-10.8)
--- NOTE | 2020-07-15 07:28 | NUR ---
OPENING NOTES PT AWAKE, ALERT, AND ORIENTED. NONLABORED BREATHING NOTED, RECEIVING O2 AT 5LPM VIA OXYMIZER. IV LINE INTACT AND PATENT, NO SIGNS OF INFILTRATION NOTED. NO ACUTE DISTRESS NOTED. BED ALARM ON. BED LOCKED AND IN LOWEST POSITION. ALL NEEDS MET. CALL LIGHT IN REACH. FALL AND ASPIRATION PRECAUTIONS IN PLACE. CONTINUE TO MONITOR.
[2020-07-15 07:38] LABS: ALBUMIN 2.7 g/dL (3.4-4.8); CALCIUM 7.9 mg/dL (8.4-11.0); CREATININE 5.26 mg/dL (0.55-1.30); PHOSPHORUS 5.3 mg/dL (2.7-4.5); POTASSIUM 4.8 mmol/L (3.5-5.1); TOTAL BILIRUBIN 0.4 mg/dL (0.0-1.0)
[2020-07-15 08:06] LABS: C-REACTIVE PROTEIN QUANT 4.9 mg/dL (0-0.5)
[2020-07-15 08:10] VITALS: BP_SYST 127
--- NOTE | 2020-07-15 08:26 | NUR ---
routine meds administered as ordered per md, education given, tolerated well. continue to monitor.
[2020-07-15] MEDS: ASPIRIN 81 MG TAB.CHEW PO SCH (08:39)
[2020-07-15] MEDS: NICOTINE 14 MG/24 HR PATCH.TD24 TD SCH (08:39)
[2020-07-15] MEDS: DULoxetine HCL 30 MG CAPSULE.DR (CYMBALTA) PO SCH ×2 (08:39→21:17)
[2020-07-15] MEDS: METOPROLOL TARTRATE 50 MG TABLET PO SCH ×2 (08:40→21:28)
[2020-07-15 10:01] LABS: ERYTHROCYTE SEDIMENTATION RATE 12 MM/HR (0-20)
--- NOTE | 2020-07-15 11:10 | NUR ---
ROUTINE MEDS ADMINISTERED ORDERED PER MD, EDUCATION GIVEN, TOLERATED WELL. CONTINUE TO MONITOR.
[2020-07-15 11:21] VITALS: BP_SYST 136
[2020-07-15] MEDS: BENZOCAINE/MENTHOL 1 EACH LOZENGE MM PRN ×2 (12:23→21:39)
--- NOTE | 2020-07-15 12:23 | NUR ---
PT COUGHING, ADMINISTERED PRN MEDS ORDERED PER MD, EDUCATION GIVEN, TOLERATED WELL. CONTINUE TO MONITOR.
--- NOTE | 2020-07-15 13:00 | NUR ---
SPOKE TO ICU CHARGE NURSE AGUILA WATSON REGARDING TB TEST, ICU NURSE YESTERDAY ADMINISTERED TB TEST ON LEFT UPPER ARM.
--- NOTE | 2020-07-15 15:00 | NUR ---
ROUNDS PT AWAKE AND ON PHONE. NO ACUTE DISTRESS NOTED. ALL NEEDS MET. CALL LIGHT IN REACH. CONTINUE TO MONITOR.
--- NOTE | 2020-07-15 15:01 | NUR ---
DC Planning: discussed dcp with pt : 1) Continued HD outpatient: the pt agreed , EDDIE Hollingsworth will consult with excellence specialist for HD set up order. 2) HH f/u: the pt agreed with any HH per her insurance. 3) May need home oxygen: EDDIE Hollingsworth will consult with pulmo for the possible home oxygen and new ABG's order for home O2 set up. Addendum: 07/15/20 at 1529 by Miguelito Santizo RN Per Edel, Hep panel was completed, TB testing is pending. Corner Brace Block Machine Operator: per pt, dr. Baltazar Monroe is her current renal md. She prefers to stay with dr. Charles. Note: is affiliated with [facility]. Cm will confirm with her insurance whether the HD center is within network.
[2020-07-15 15:34] VITALS: BP_SYST 127
--- NOTE | 2020-07-15 16:56 | NUR ---
Nutrition F/U RD reviewed pt's current EMR record including diet Hx, physician notes, nursing notes, pertinent labs/meds/procedures, care trends, and care activity. Admission Dx: Renal Failure and Possible Covid-19 PMH: CAD s/p stent placing, COPD, CHF, HTN, PVD, Tobacco use (1 pack/day) Pt also found w/ bilateral pleural effusion per MD note (07/10): SARS-CoV-2 PCR and Ag Negative Current Diet Order/Nutrition Support: Cardiac x4 days Subjective Info: Pt was seen earlier this afternoon. Pt reported that she has not had much of an appetite. RN reported that pt will have dialysis tomorrow. Pt prefers softer foods d/t difficulty chewing. Pt is not meeting nutritional needs. New wt noted: 169#/77 kg (07/14). Pertinent Medications Lasix, zocor, zofran, solumedrol, lopressor Pertinent Labs Na 131 L, K 4.8 WNL (improved), BUN 49 H, Cr 5.26 H, BG 126 H, Phos 5.3 H Skin Integrity Comment: Sav scale 18. No PI/edema noted. Current % PO 23% average x7 meals NEW Estimated Energy Expenditure (kcals/day) 0533-9535 kcal/day (30-35 kcal/kg adj. IBW for renal failure, HD) NEW Estimated Protein Required (g/day) 83-96 gn pro/day (1.2-1.5 gn pro/kg adj IBW for renal failure, HD) Estimated Fluid Required (l/day) Per MD d/t CHF and renal failure Problem/Etiology/Signs/Symptoms Inadequate protein energy intake r/t nausea/vomiting and decreased appetite AEB pt reported nausea/vomiting > 3 days, eaten poorly > 1 week d/t decreased appetite, and 35% average PO intake x last 5 meals. *ongoing Altered nutrition-related lab values r/t renal failure AEB elevated K, Phos, BUN/Cr labs. *improving Expected Outcomes/Goals -Will monitor diet tolerance and PO intake w/ goal of pt meeting at least 75% of estimated nutritional needs, labs trending WNL, normal GI function, skin integrity, and weight maintenance. Dietitian Recommendations * Recommend cardiac diet w/ Nepro BID (additional 850 kcal/day, 38 gm protein/day) * Encourage increase PO intakes Follow Up High Risk: F/U in 2-3 days
--- NOTE | 2020-07-15 17:02 | NUR ---
Dietitian Recommendations * Recommend cardiac diet w/ Nepro BID (additional 850 kcal/day, 38 gm protein/day) * Encourage increase PO intakes LP, RD Please refer to Nutrition F/U for details.
--- NOTE | 2020-07-15 18:18 | NUR ---
SPOKE TO BUSHRA RICH AT NURSE'S STATION. RECEIVED ORDERS FOR DVT PROPHYLAXIS SCD'S, VERIFIED, AND CARRIED OUT. LET MD AWARE OF CASE MANAGEMENT'S REPORT REGARDING ARRANGING HOME OXYGEN AND D/C PLAN HOME WITH HOME HEALTH. VERBALIZED UNDERSTANDING.
[2020-07-15] MEDS: LEVOFLOXACIN 250 MG/D5W 50 ML IV SCH (18:32)
--- NOTE | 2020-07-15 18:39 | NUR ---
ROUTINE MEDS ADMINISTERED ORDERED PER MD, EDUCATION GIVEN, TOLERATED WELL. SCD'S ON AND IN PLACE. CONTINUE TO MONITOR.
--- NOTE | 2020-07-15 19:03 | NUR ---
CLOSING NOTES PT AWAKE, ALERT, AND ORIENTED. NONLABORED BREATHING NOTED, RECEIVING O2 AT 5LPM VIA OXYMIZER, TOLERATING WELL. IV LINE INTACT AND PATENT, NO SIGNS OF INFILTRATION NOTED, IV ABX RUNNING ORDERED PER MD. NO ACUTE DISTRESS NOTED. BED LOCKED AND IN LOWEST POSITION. ALL NEEDS MET. CALL LIGHT IN REACH. FALL AND ASPIRATION PRECAUTIONS IN PLACE. PT COUGHING SCANT BLOODY SPUTUM, WILL ENDORSE TO NOC NURSE.
--- NOTE | 2020-07-15 19:30 | NUR ---
OPENING NOTE: RECEIVED SBAR REPORT FROM DAY SHIFT RN. PT AWAKE, ALERT, AND ORIENTED. BREATHING IS UNLABORED AND EVEN, RECEIVING O2 AT 5LPM VIA OXYMIZER, TOLERATING WELL. IV LINE INTACT AND PATENT, NO SIGNS OF INFILTRATION NOTED. NO ACUTE DISTRESS NOTED. BED LOCKED AND IN LOWEST POSITION. CALL LIGHT IN REACH. FALL AND ASPIRATION PRECAUTIONS IN PLACE. WILL CONTINUE TO MONITOR.
[2020-07-15 20:00] VITALS: BP_SYST 134
[2020-07-15] MEDS: AMITRIPTYLINE HCL 25 MG TABLET (ELAVIL) PO SCH (21:17)
[2020-07-15] MEDS: SIMVASTATIN 20 MG TABLET PO SCH (21:17)
--- NOTE | 2020-07-15 21:17 | NUR ---
MEDICATION PASS: PATIENT GIVEN SCHEDULED MEDICATIONS INCLUDING PAIN MED FOR LOWER BACK PAIN, PATIENT TOLERATED TAKING PO MED WELL. NO S/S ACUTE DISTRESS NOTED. BREATHING EVEN AND UNLABORED VIA OXYMIZER. NO SIGN OF INFILTRATION AT IV SITE. SAFETY,FALL, AND ASPIRATION PRECAUTIONS ARE IN PLACE. CALL LIGHT IS WITH PATIENT. WILL CONTINUE TO MONITOR.
[2020-07-15] MEDS: HYDROcodone/ACETAMIN 10-325 MG TAB PO PRN (23:07)
--- NOTE | 2020-07-15 23:10 | NUR ---
RN ROUNDS: PATIENT IS AWAKE, RESTING IN BED COMFORTABLY. BREATHING IS EVEN AND UNLABORED ON OXYMIZER. NO S/S ACUTE DISTRESS NOTED. SAFETY,FALL, AND ASPIRATION PRECAUTIONS MAINTAINED. WILL MONITOR PATIENT FOR ANY CHANGES.
--- NOTE | 2020-07-16 01:35 | NUR ---
RN ROUNDS: PATIENT IS IN BED, CURRENTLY SLEEPING. BREATHING IS UNLABORED AND EVEN, RECEIVING O2 AT 5LPM VIA OXYMIZER, TOLERATING WELL. IV LINE INTACT AND PATENT, NO SIGNS OF INFILTRATION NOTED. NO ACUTE DISTRESS NOTED. BED LOCKED AND IN LOWEST POSITION. CALL LIGHT IN REACH. FALL AND ASPIRATION PRECAUTIONS IN PLACE. WILL CONTINUE TO MONITOR.
--- NOTE | 2020-07-16 03:30 | NUR ---
RN ROUNDS: PATIENT IS IN BED, CURRENTLY SLEEPING. RESPIRATION IS UNLABORED AND EVEN, RECEIVING O2 AT 5LPM VIA OXYMIZER. IV LINE INTACT AND PATENT, NO SIGNS OF INFILTRATION NOTED. NO ACUTE DISTRESS NOTED. BED LOCKED AND IN LOWEST POSITION. CALL LIGHT IN REACH. FALL AND ASPIRATION PRECAUTIONS IN PLACE. WILL CONTINUE TO MONITOR.
[2020-07-16] MEDS: IPRATROPIUM/ALBUTEROL SULFATE 3 ML AMPUL.NEB (DUONEB) INH SCH ×6 (03:38→23:33)
--- NOTE | 2020-07-16 06:45 | NUR ---
IS VISITING PATIENT. PLAN OF CARE EXPLAINED TO PATIENT BY .
[2020-07-16 06:48] LABS: HEMATOCRIT 30.7 % (36-48); HEMOGLOBIN 10.5 g/dL (12.0-16.0); LYMPHOCYTES # (AUTO) 0.7 K/uL (1.0-5.5); LYMPHOCYTES % (AUTO) 6.1 % (20.5-51.5); MEAN CORPUSCULAR HEMOGLOBIN 30 pg (27-31); MEAN CORPUSCULAR HGB CONC 34 % (32-36); MEAN CORPUSCULAR VOLUME 88 fL (79.0-98.0); MONOCYTES # (AUTO) 0.6 K/uL (0.0-1.0); NEUTROPHILS # (AUTO) 10.3 K/uL (1.8-7.7); NEUTROPHILS % (AUTO) 88.9 % (40.0-70.0); PLATELET COUNT (AUTO) 205 K/uL (130-430); RED CELL DISTRIBUTION WIDTH 13.9 % (9.0-15.0); WHITE BLOOD COUNT (AUTO) 11.6 K/uL (4.8-10.8)
--- NOTE | 2020-07-16 06:49 | NUR ---
CLOSING NOTE: PATIENT IS AWAKE. REPORTS PAIN IN HER UPPER LEFT BACK. RATING HER PAIN 5 ON THE SCALE OF 0-10. NORCO 5-325 MG GIVEN TO PATIENT. PATIENT TOLERATED WELL. NO S/S ACUTE DISTRESS NOTED. BREATHING IS EVEN AND UNLABORED. ALL NEEDS MET. SAFETY,FALL, AND ASPIRATION PRECAUTIONS MAINTAINED. CALL LIGHT IS WITH PATIENT. WILL ENDORSE PATIENT CARE TO DAY SHIFT RN.
[2020-07-16 07:21] LABS: C-REACTIVE PROTEIN QUANT 3.3 mg/dL (0-0.5); CALCIUM 8.3 mg/dL (8.4-11.0); CREATININE 6.84 mg/dL (0.55-1.30); PHOSPHORUS 6.1 mg/dL (2.7-4.5); POTASSIUM 4.7 mmol/L (3.5-5.1)
[2020-07-16 08:00] VITALS: BP_SYST 134
[2020-07-16] MEDS: NICOTINE 14 MG/24 HR PATCH.TD24 TD SCH (09:00)
[2020-07-16] MEDS: DULoxetine HCL 30 MG CAPSULE.DR (CYMBALTA) PO SCH ×2 (09:05→21:24)
[2020-07-16] MEDS: ASPIRIN 81 MG TAB.CHEW PO SCH (09:05)
[2020-07-16] MEDS: METOPROLOL TARTRATE 50 MG TABLET PO SCH ×2 (09:06→21:25)
[2020-07-16] MEDS: methylPREDNISolone SOD SUCC 40 MG/ML VIAL IVP SCH ×2 (09:06→21:24)
--- NOTE | 2020-07-16 09:43 | NUR ---
alert, oriented, dangling for breakfast. In and out to use BSC, no sob noted, denied dyspnea on exertion. On 2liter, sat 94%. Continues to smoke when out of the hospital, NICOTINE patch held.
[2020-07-16 10:14] LABS: ERYTHROCYTE SEDIMENTATION RATE 12 MM/HR (0-20)
[2020-07-16 12:23] VITALS: BP_SYST 143
--- NOTE | 2020-07-16 14:19 | NUR ---
NEPHRO CONSULT WITH DR GRIDER IS CANCELLED. DR POP, NEPHRO MACHINE BILLER IS AWARE.
--- NOTE | 2020-07-16 14:23 | NUR ---
CONSULTATION PAGED/CALLED Reason for Consultation: [] RENAL FAILURE Person Who was Notified: [] DR BURGESS Consulting Physician: [] DR BURGESS Zoo Keeper Specialty: [] CISCO UNIFIED COMMUNICATIONS ENGINEER Ordering Physician: [] DR Christie FUNES
--- NOTE | 2020-07-16 14:58 | NUR ---
JANETT, banana on tray, changed diet from cardiac to renal , starting this dinner. Now seen by nephro, dr Monroe, instead of dr Cevallos
[2020-07-16 16:15] VITALS: BP_SYST 134
--- NOTE | 2020-07-16 17:12 | NUR ---
alert, oriented, and very relaxed until dialysis started this afternoon. became anxious, to the point dialysis personnel had to cut it short. patient stated " did not know how long dialysis will take, " they should have told me what to expect" On oximizer 4liters, sat well , 95-96%, lungs sound, especially on the R diminished. appetite from fair to poor, " did not like the food" Seen by nephro, lab reviewed, no new orders.
--- NOTE | 2020-07-16 19:20 | NUR ---
Opening note: received SBAR report from day shift rn. patient awake, alert and oriented x 4. breathing unlabored and even. receiving o2 via Oxymizer 4 l. tolerating it well. saline lock noted on r forearm. intact and dry. no sign of infiltration. vital signs with nor mal limts. patient reports lower back pain 10 0-10. no s/s acute distress noted. safety and fall precautions are in place. will continue to monitor.
[2020-07-16 20:00] VITALS: BP_SYST 140
--- NOTE | 2020-07-16 21:15 | NUR ---
MEDICATION PASS: PATIENT GIVEN SCHEDULED MEDS. TOLERATED WELL. NO S/S ACUTE DISTRESS NOTED. SAFETY AND FALL PRECAUTIONS ARE IN PLACE. CALL LIGHT IS WITH PATIENT.WILL CONTINUE TO MONITOR.
[2020-07-16] MEDS: AMITRIPTYLINE HCL 25 MG TABLET (ELAVIL) PO SCH (21:24)
[2020-07-16] MEDS: SIMVASTATIN 20 MG TABLET PO SCH (21:24)
[2020-07-16] MEDS: HYDROcodone/ACETAMIN 10-325 MG TAB PO PRN (21:25)
[2020-07-16] MEDS: BENZOCAINE/MENTHOL 1 EACH LOZENGE MM PRN (21:35)
[2020-07-17] VITALS: BP_SYST 138
--- NOTE | 2020-07-17 02:00 | NUR ---
PATIENT REPORTS DIFFICULTY BREATHING. CALLED RT FOR BREATHING TREATMENT. RT AT PATIENT'S BEDSIDE GIVING BREATHING TX.
[2020-07-17] MEDS: IPRATROPIUM/ALBUTEROL SULFATE 3 ML AMPUL.NEB (DUONEB) INH SCH ×6 (02:29→23:22)
[2020-07-17] MEDS: LORazepam 2 MG/ML VIAL IVP PRN ×3 (02:37→19:58)
--- NOTE | 2020-07-17 04:30 | NUR ---
RN ROUNDS: PATIENT IS IN BED, CURRENTLY SLEEPING. RESPIRATION IS UNLABORED AND EVEN, RECEIVING O2 AT 5LPM VIA OXYMIZER. NO S/S ACUTE DISTRESS NOTED. BED LOCKED AND IN LOWEST POSITION. CALL LIGHT IS WITH PATIENT. FALL AND ASPIRATION PRECAUTIONS IN PLACE. WILL CONTINUE TO MONITOR.
--- NOTE | 2020-07-17 06:38 | NUR ---
CLOSING NOTE: PATIENT IS AWAKE. BREATHING EVEN AND UNLABORED ON 5 L OF OXYGEN VIA OXYMIZER. NO S/S ACUTE DISTRESS NOTED. BREATHING IS EVEN AND UNLABORED. ALL NEEDS MET. SAFETY,FALL, AND ASPIRATION PRECAUTIONS MAINTAINED. CALL LIGHT IS WITH PATIENT. WILL ENDORSE PATIENT CARE TO DAY SHIFT RN.
[2020-07-17 07:00] LABS: HEMOGLOBIN 10.5 g/dL (12.0-16.0); LYMPHOCYTES # (AUTO) 0.6 K/uL (1.0-5.5); LYMPHOCYTES % (AUTO) 5.5 % (20.5-51.5); MEAN CORPUSCULAR HEMOGLOBIN 30 pg (27-31); MEAN CORPUSCULAR HGB CONC 34 % (32-36); MEAN CORPUSCULAR VOLUME 87 fL (79.0-98.0); MONOCYTES # (AUTO) 0.6 K/uL (0.0-1.0); NEUTROPHILS # (AUTO) 10.3 K/uL (1.8-7.7); NEUTROPHILS % (AUTO) 89.5 % (40.0-70.0); PLATELET COUNT (AUTO) 188 K/uL (130-430); RED BLOOD CELL COUNT(AUTO) 3.54 MIL/uL (4.2-6.2); WHITE BLOOD COUNT (AUTO) 11.5 K/uL (4.8-10.8)
[2020-07-17 07:19] LABS: C-REACTIVE PROTEIN QUANT 1.7 mg/dL (0-0.5); CALCIUM 8.2 mg/dL (8.4-11.0); CREATININE 5.81 mg/dL (0.55-1.30); PHOSPHORUS 5.7 mg/dL (2.7-4.5); POTASSIUM 4.3 mmol/L (3.5-5.1)
[2020-07-17] MEDS: NICOTINE 14 MG/24 HR PATCH.TD24 TD SCH (07:56)
[2020-07-17 08:00] VITALS: BP_SYST 143
[2020-07-17] MEDS: methylPREDNISolone SOD SUCC 40 MG/ML VIAL IVP SCH (09:54)
[2020-07-17] MEDS: DULoxetine HCL 30 MG CAPSULE.DR (CYMBALTA) PO SCH ×2 (09:55→20:01)
[2020-07-17] MEDS: METOPROLOL TARTRATE 50 MG TABLET PO SCH ×2 (09:55→20:01)
[2020-07-17] MEDS: ASPIRIN 81 MG TAB.CHEW PO SCH (09:55)
[2020-07-17 11:35] LABS: ERYTHROCYTE SEDIMENTATION RATE 8 MM/HR (0-20)
--- NOTE | 2020-07-17 14:50 | NUR ---
ALERT, ORIENTED, AND APPROPRIATE, ON OXIMIZER, 4 L, SAT WELL, 94%, SELF CARE. NICOTINE PATCH 14MG SUPPOSED TO GIVE, REFUSED. " I WILL NOT STOP SMOKE, WHEN HOME I SMOKE AGAIN. 2PM. JITTERY , ASKING FOR ATIVAN, 1MG IVP GIVEN, ALSO NICOTINE PATCH APPLIED. PATIENT IS DISCHARGED WITH HOME HEALTH.FOR PT, ABX, BY ATTENDING.
--- NOTE | 2020-07-17 14:51 | NUR ---
Information Security Associate: D/C planning JEWELRY POLISHER received D/C order from Yoav Aleman MD. stating HH for oxygen, IV abx and PT. JEWELRY POLISHER called Rn, asked if pt. was d/c today. She did not know. JEWELRY POLISHER called Katie at [facility], , [place]. [phone] Katie will send JEWELRY POLISHER's message to the [employer] [facility]. JEWELRY POLISHER received p/c from [facility], [phone] fax, . She said, they accept [facility] [employer] however insurance to be verified tomorrow and [facility] does go to [place]. JEWELRY POLISHER will fax over a packet to her. JEWELRY POLISHER read. notes which stated Continue IV abx Continue nebulizer Continue wean oxygen Continue rehab Continue inpatient HD Obtain labs in am Obtain CXR in am Further per consults Digital Photo Printer for discharge planning JEWELRY POLISHER spoke to Rn for clarification, who stated HH will include oxygen, P.O Antibiotics, Levo, PT, nebulizer and out pt. Dialysis, pt. to contact Dr. Monroe. JEWELRY POLISHER was finally able to call pts. son, Joanne Donahue to confirm the address, is the same as listed on the facesheet. IMPORTANTSon said and his son work. The HH will need to contact him prior to coming to his home as they both work. Son works M-F 8-5pm. Addendum: 07/17/20 at 1637 by Belia WHITFIELD Information Security Associate Follow up JEWELRY POLISHER received additional d/c planning which indicated to arrange for outpt. dialysis HH for nebulizer Tx. still does not reflect meds by mouth as indicated by Rn. JEWELRY POLISHER called station to speak to Rn. was is not available at the time. JEWELRY POLISHER needs Rn to put on one d/c request all needs. This needs to be faxd to HH agency [facility]. DME needs to be set up.
--- NOTE | 2020-07-17 14:59 | NUR ---
PAGED DR BRETT FUNES SPOKE TO GRANT
[2020-07-17 17:31] VITALS: BP_SYST 136
--- NOTE | 2020-07-17 17:34 | NUR ---
alert, oriented, dangling to eat breakfast, appetite fair, about 50%. on oximizer , denied dyspnea, but sob on exertion, from bed to bsc. seen by attending, and dc planning requested with home health
--- NOTE | 2020-07-17 19:20 | NUR ---
OPENING NOTE: RECEIVED CARE OF PATIENT AND SBAR REPORT. PATIENT IS AAOX4, RESTING IN BED, BREATHING EVEN AND UNLABORED ON 4 L OF OXYGEN VIA OXYMIZER. NO S/S ACUTE DISTRESS NOTED. BREATHING IS EVEN AND UNLABORED. SAFETY,FALL, AND ASPIRATION PRECAUTIONS MAINTAINED. CALL LIGHT IS WITH PATIENT. BED IS LOCKED AND ALARMED AT THE LOWEST LEVEL. SIDE RAILS UP X2. WILL CONTINUE TO MONITOR.
[2020-07-17 20:00] VITALS: BP_SYST 151
[2020-07-17] MEDS: AMITRIPTYLINE HCL 25 MG TABLET (ELAVIL) PO SCH (20:01)
[2020-07-17] MEDS: SIMVASTATIN 20 MG TABLET PO SCH (20:01)
[2020-07-17] MEDS: HYDROcodone/ACETAMIN 10-325 MG TAB PO PRN (20:02)
[2020-07-17] MEDS: BENZOCAINE/MENTHOL 1 EACH LOZENGE MM PRN (20:09)
--- NOTE | 2020-07-17 20:10 | NUR ---
MED PASS PT REQUESTING PRN MEDICATIONS FOR PAIN, ANXIETY AND COUGH. NORCO 10-325 MG GIVEN FOR SEVERE PAIN. ATIVAN 1 MG IVP GIVEN FOR ANXIETY, AND CEPACOL THROAT LOZANGE GIVEN FOR COUGH. SCHEDULED MEDICATIONS ALSO ADMINISTERED AT THIS TIME. MEDICATION INDICATIONS, ACTIONS, AND POTENTIAL SIDE EFFECTS DISCUSSED, PT VERBALIZED UNDERSTANDING. PT GIVEN FRESH WATER AND ICE CHIPS. PT DENIES FURTHER NEEDS AT THIS TIME. SAFETY AND FALL PRECAUTIONS MAINTAINED. WILL MONITOR.
[2020-07-17] MEDS ORDERED: levoFLOXacin 250 MG TABLET PO SCH (21:00)
--- NOTE | 2020-07-18 00:15 | NUR ---
RN ROUNDS: PATIENT IS IN BED, SLEEPING. BREATHING IS UNLABORED AND EVEN, RECEIVING O2 AT 4 LPM VIA OXYMIZER, TOLERATING WELL. IV LINE INTACT AND PATENT, NO SIGNS OF INFILTRATION NOTED. NO ACUTE DISTRESS NOTED. BED LOCKED AND IN LOWEST POSITION. CALL LIGHT IN REACH. FALL AND ASPIRATION PRECAUTIONS IN PLACE. WILL CONTINUE TO MONITOR.
[2020-07-18 02:20] VITALS: BP_SYST 142
--- NOTE | 2020-07-18 02:32 | NUR ---
RN ROUNDS: PATIENT IS IN BED, SLEEPING. BREATHING IS UNLABORED AND EVEN, RECEIVING O2 AT 4 LPM VIA OXYMIZER, TOLERATING WELL. IV LINE INTACT AND PATENT, NO SIGNS OF INFILTRATION NOTED. NO ACUTE DISTRESS NOTED. BED IS LOCKED AND IN LOWEST POSITION. CALL LIGHT IN REACH. FALL AND ASPIRATION PRECAUTIONS IN PLACE. WILL MONITOR.
[2020-07-18] MEDS: IPRATROPIUM/ALBUTEROL SULFATE 3 ML AMPUL.NEB (DUONEB) INH SCH ×6 (03:49→23:41)
[2020-07-18] MEDS: LORazepam 2 MG/ML VIAL IVP PRN (05:30)
[2020-07-18 06:39] LABS: BASOPHILS % (AUTO) 0.2 % (0.0-2.0); EOSINOPHILS # (AUTO) 0.1 K/uL (0.0-0.4); EOSINOPHILS % (AUTO) 0.6 % (0.0-4.0); HEMATOCRIT 31.4 % (36-48); HEMOGLOBIN 10.6 g/dL (12.0-16.0); LYMPHOCYTES # (AUTO) 1.6 K/uL (1.0-5.5); LYMPHOCYTES % (AUTO) 8.8 % (20.5-51.5); MEAN CORPUSCULAR HEMOGLOBIN 30 pg (27-31); MEAN CORPUSCULAR HGB CONC 34 % (32-36); MEAN CORPUSCULAR VOLUME 88 fL (79.0-98.0); MONOCYTES # (AUTO) 1.1 K/uL (0.0-1.0); MONOCYTES % (AUTO) 6.2 % (1.7-9.3); NEUTROPHILS # (AUTO) 15.5 K/uL (1.8-7.7); NEUTROPHILS % (AUTO) 84.2 % (40.0-70.0); PLATELET COUNT (AUTO) 184 K/uL (130-430); RED BLOOD CELL COUNT(AUTO) 3.57 MIL/uL (4.2-6.2); RED CELL DISTRIBUTION WIDTH 14.2 % (9.0-15.0); WHITE BLOOD COUNT (AUTO) 18.3 K/uL (4.8-10.8)
--- NOTE | 2020-07-18 06:45 | NUR ---
RN NOTE: PT CALLED THE NURSE'S STATION STATING THAT SHE COULD NOT BREATHE. RESPIRATORY THERAPIST CALLED. PT O2 SAT NOTED TO BE IN THE 70'S. BREATHING TREATMENT GIVEN AND PT PUT ON BIPAP WITH IPAP AT 10, EPAP AT 5, O2 AT 45%, RESPIRATORY RATE 14. WILL HAVE THE DAY SHIFT NURSE ENDORSE TO PHYSICIAN TODAY.
[2020-07-18 07:06] LABS: ALBUMIN 2.7 g/dL (3.4-4.8); CALCIUM 8.1 mg/dL (8.4-11.0); PHOSPHORUS 6.2 mg/dL (2.7-4.5); POTASSIUM 4.3 mmol/L (3.5-5.1); TOTAL BILIRUBIN 0.8 mg/dL (0.0-1.0)
--- NOTE | 2020-07-18 07:15 | NUR ---
CLOSING NOTE: PATIENT IS AWAKE. BREATHING EVEN AND UNLABORED TO BIPAP SETTINGS. NO S/S ACUTE DISTRESS NOTED. ALL NEEDS MET. SAFETY,FALL, AND ASPIRATION PRECAUTIONS MAINTAINED. CALL LIGHT IS WITH PATIENT. WILL ENDORSE PATIENT CARE TO DAY SHIFT RN.
--- NOTE | 2020-07-18 07:44 | NUR ---
OPENING NOTE Patient resting in the bed. No acute distress. On BIPAP 10/, FIO2=56%, rate 14. Skin warm and dry to touch. SL intact to RFA, no redness, no swelling, patent. Safety measure maintained. Call light within reached. Bed locked in low position, side rails up, bed alarm on. Will continue to monitor.
[2020-07-18 07:55] VITALS: BP_SYST 148
[2020-07-18 08:41] LABS: C-REACTIVE PROTEIN QUANT 1.4 mg/dL (0-0.5)
[2020-07-18 09:12] LABS: CREATININE 7.6 mg/dL (0.55-1.30)
--- NOTE | 2020-07-18 09:26 | NUR ---
NEPHRO, DR BURGESS WAS CALLED, RE: CRITICAL CR LEVEL. SPOKE TO LUCINDA.
--- NOTE | 2020-07-18 09:39 | NUR ---
CRITICAL LAB: CREATINE=7.6 Called and received the call back from Tray Garza, reported patient's creatine=7.6. Dr. Monroe with order to dialysis today, when dialysis arrive call him for order. Order read back and ok for Dr. Monroe.
[2020-07-18] MEDS: NICOTINE 14 MG/24 HR PATCH.TD24 TD SCH (09:45)
[2020-07-18] MEDS: DULoxetine HCL 30 MG CAPSULE.DR (CYMBALTA) PO SCH ×2 (09:45→20:11)
[2020-07-18] MEDS: ASPIRIN 81 MG TAB.CHEW PO SCH (09:45)
[2020-07-18] MEDS: METOPROLOL TARTRATE 50 MG TABLET PO SCH ×2 (09:47→20:11)
[2020-07-18 09:49] LABS: ERYTHROCYTE SEDIMENTATION RATE 8 MM/HR (0-20)
[2020-07-18] MEDS: HYDROcodone/ACETAMIN 10-325 MG TAB PO PRN ×2 (10:20→23:27)
--- NOTE | 2020-07-18 10:27 | NUR ---
NORCO GIVEN Patient c/o back pain 10/, [place] 10/325mg 1 tab given as ordered. Continue on BIPAP. Respiration even and unlabored. Safety measure maintained. Call light within reached. Continue to monitor.
--- NOTE | 2020-07-18 11:04 | NUR ---
WBC=18.3 Called and received the call back from Yoav Aleman, reported to Dr. Adams, patient's WBC=18.3 today and yesterday was 11.5. Dr. Adams with order consult with Adenike Walker. Dr. Melo in the unit at this time and make aware.
--- NOTE | 2020-07-18 11:10 | NUR ---
CONSULTATION PAGED/CALLED Reason for Consultation: [] ELEVATED WBC Person Who was Notified: [] DR MARTINEZ WHILE DOING HIS ROUNDS Consulting Physician: [] DR MARTINEZ Potato Chip Cooker Machine Specialty: [] ID Ordering Physician: [] DR Christie FUNES
--- NOTE | 2020-07-18 11:15 | NUR ---
HEMODIALYSIS STARTED Patient resting in the bed. No acute distress. Continue on BIPAP. Hemodialysis started. Safety measure maintained. Call light within reached. Dialysis nurse at bedside. Continue to monitor.
--- NOTE | 2020-07-18 12:13 | NUR ---
SEEN AND EXAMINED BY JOSH BLISS WITH ORDER RECEIVED.
[2020-07-18 12:38] VITALS: BP_SYST 118
--- NOTE | 2020-07-18 12:54 | NUR ---
Nutrition F/U RD reviewed pt's current EMR record including diet Hx, physician notes, nursing notes, pertinent labs/meds/procedures, care trends, and care activity. Admission Dx: Renal Failure and Possible Covid-19 PMH: CAD s/p stent placing, COPD, CHF, HTN, PVD, Tobacco use (1 pack/day) Pt also found w/ bilateral pleural effusion per MD note (07/10): SARS-CoV-2 PCR and Ag Negative 07/18 MD notes: ESRD on HD Current Diet Order/Nutrition Support: Renal Standard diet x 2 days Subjective Info: Pt was seen in bed, on BiPAP, and appeared to be in respiratory distress. Pt c/o pain and having difficulty breathing w/ mask on. RD informed RN. Per EMR, pt w/ poor PO intake, and plans for HD today. Pt is a/w DC arrangements for outpatient HD. Pertinent Medications: Heparin, zocor, zofran Pertinent Labs Na 129 L, K 4.3 WNL (improved), BUN 70 H, Cr 7.6 H, BG 92 WNL (improved) Skin Integrity Comment: Sav scale 20. No PI/edema noted. Current % PO Poor (6% average x8 meals) Estimated Energy Expenditure (kcals/day) 1894-7983 kcal/day (30-35 kcal/kg adj. IBW for renal failure, HD) Estimated Protein Required (g/day) 83-96 gm/day (1.2-1.5 gm/kg adj IBW for renal failure, HD) Estimated Fluid Required (l/day) Per MD d/t CHF and renal failure Problem/Etiology/Signs/Symptoms Inadequate protein energy intake r/t nausea/vomiting and decreased appetite AEB pt reported nausea/vomiting > 3 days, eaten poorly > 1 week d/t decreased appetite, and 35% average PO intake x last 5 meals. *ongoing Altered nutrition-related lab values r/t renal failure AEB elevated K, Phos, BUN/Cr labs. *improving Expected Outcomes/Goals -Will monitor diet tolerance and PO intake w/ goal of pt meeting at least 75% of estimated nutritional needs, labs trending WNL, normal GI function, skin integrity, and weight maintenance. Dietitian Recommendations * Continue Renal standard diet as ordered. * Recommend: add Nepro BID to optimize PO intake. * Encourage increase PO intake. Follow Up High Risk: F/U in 2-3 days
--- NOTE | 2020-07-18 13:00 | NUR ---
Dietitian Recommendations * Continue Renal standard diet as ordered. * Recommend: add Nepro BID to optimize PO intake. * Encourage increase PO intake. Please see Nutrition F/U note for details. DANNY, RD
--- NOTE | 2020-07-18 13:10 | NUR ---
CONTINUE ON HEMODIALYSIS, DIALYSIS NURSE AT BEDSIDE. SAFETY MEASURE MAINTAINED. CALL LIGHT WITHIN REACHED. CONTINUE TO MONITOR.
--- NOTE | 2020-07-18 13:15 | NUR ---
Discharge Planning: DCP faxed pt referral to [facility] (f [phone] p [phone]) and [facility] (f [phone] p [phone]) DCP faxed Hep panel and copy of dialysis process sheet from pt binder. DCP to follow up. Addendum: 07/18/20 at 1501 by Danuta Younger DP DCP followed up with [facility] p [phone]) will accept pt, Tang stated pt has $25.00 co-pay per visit. Patient has 10 visits for PT per insurance. DCP followed up with [facility] (f [phone] p [phone]) will accept [facility] 8:15pm-1:00pm.
--- NOTE | 2020-07-18 13:16 | NUR ---
HIGH ALERT NOTE: Called Tray Garza back at [phone] identified within the medical roster to verify physician authenticity.
[2020-07-18] MEDS ORDERED: HEPARIN SODIUM,PORCINE 5,000 UNITS/ML VIAL IVP ONE (13:30)
--- NOTE | 2020-07-18 14:05 | NUR ---
HEMODIALYSIS COMPLETED Patient resting in the bed. No acute distress. Continue on BIPAP. Hemodialysis completed with 2.4L out, B/P stable. Left IJ intact, covered with clean and dry dressing, no bleeding noted. Safety measure maintained. Call light within reached. Bed locked in low position, side rails up, bed alarm on. Continue to monitor.
--- NOTE | 2020-07-18 15:50 | NUR ---
RT PLACED PATIENT O2 4L/MIN VIA OXYMIZER WITH O2 SAT=93%. PATIENT NO ACUTE DISTRESS. CONTINUE TO MONITOR.
--- NOTE | 2020-07-18 15:55 | NUR ---
SEEN AND EXAMINED BY JESU SAMPSON.
--- NOTE | 2020-07-18 16:02 | NUR ---
SEEN AND EXAMINED BY DAVE BENZ.
[2020-07-18] MEDS ORDERED: SEVELAMER CARBONATE 800 MG TABLET PO ONE (16:15)
[2020-07-18 16:33] VITALS: BP_SYST 105
--- NOTE | 2020-07-18 17:40 | NUR ---
SEEN AND EXAMINED BY BUSHRA BERNAL WITH ORDER RECEIVED.
[2020-07-18] MEDS: BENZOCAINE/MENTHOL 1 EACH LOZENGE MM PRN (18:38)
--- NOTE | 2020-07-18 18:55 | NUR ---
CLOSING NOTE Patient resting in the bed. No acute distress. On O2 4L/min via oxymizer. Skin warm and dry to touch. SL intact to RFA, no redness, no swelling, patent. All needs met. Safety measure maintained. Call light within reached. Bed locked in low position, side rails up, bed alarm on. Will endorse to night nurse.
[2020-07-18 20:00] VITALS: BP_SYST 98
[2020-07-18] MEDS: AMITRIPTYLINE HCL 25 MG TABLET (ELAVIL) PO SCH (20:11)
[2020-07-18] MEDS: AZTREONAM 1 GM in NS 50 ML IV SCH (20:11)
[2020-07-18] MEDS: LINEZOLID 300 ML IV SCH (20:11)
[2020-07-18] MEDS: SIMVASTATIN 20 MG TABLET PO SCH (20:11)
--- NOTE | 2020-07-18 20:11 | NUR ---
MEDICATION PASS SCHEDULED MEDICATIONS ADMINISTERED ORDERED. MEDICATION ACTIONS AND POTENTIAL SIDE EFFECTS DISCUSSED. PT VERBALIZED UNDERSTANDING. NO S/S OF ACUTE DISTRESS NOTED. SAFETY PRECAUTIONS MAINTAINED. WILL MONITOR.
[2020-07-19] VITALS: BP_SYST 187
[2020-07-19] MEDS: hydrALAZINE HCL 20 MG/ML VIAL IVP PRN (00:07)
--- NOTE | 2020-07-19 00:07 | NUR ---
HIGH BP BP NOTED TO BE 187/90, APRESOLINE GIVEN ORDERED PRN. WILL RECHECK BP IN 30 MINUTES.
[2020-07-19 00:30] VITALS: BP_SYST 158
[2020-07-19] MEDS: ONDANSETRON HCL 4 MG/2 ML VIAL IVP PRN (02:42)
--- NOTE | 2020-07-19 02:45 | NUR ---
NAUSEA PT REPORTING NAUSEA AND HAVING DRY HEAVES. ZOFRAN GIVEN ORDERED PRN FOR NAUSEA. PT GIVEN SALTINE CRACKERS AND ICE CHIPS. PT PROVIDED WITH A WARM BLANKET. PT TOLERATED WELL. SAFETY PRECAUTIONS MAINTAINED. WILL MONITOR.
[2020-07-19] MEDS: IPRATROPIUM/ALBUTEROL SULFATE 3 ML AMPUL.NEB (DUONEB) INH SCH ×6 (03:00→23:17)
[2020-07-19] MEDS: BENZOCAINE/MENTHOL 1 EACH LOZENGE MM PRN ×3 (06:23→20:55)
[2020-07-19 06:35] LABS: EOSINOPHILS # (AUTO) 0.3 K/uL (0.0-0.4); HEMATOCRIT 29.9 % (36-48); HEMOGLOBIN 10.1 g/dL (12.0-16.0); LYMPHOCYTES # (AUTO) 1.1 K/uL (1.0-5.5); LYMPHOCYTES % (AUTO) 8.2 % (20.5-51.5); MEAN CORPUSCULAR HEMOGLOBIN 30 pg (27-31); MEAN CORPUSCULAR HGB CONC 34 % (32-36); MEAN CORPUSCULAR VOLUME 88 fL (79.0-98.0); MONOCYTES # (AUTO) 0.8 K/uL (0.0-1.0); MONOCYTES % (AUTO) 5.5 % (1.7-9.3); NEUTROPHILS # (AUTO) 11.7 K/uL (1.8-7.7); NEUTROPHILS % (AUTO) 84.3 % (40.0-70.0); PLATELET COUNT (AUTO) 156 K/uL (130-430); RED CELL DISTRIBUTION WIDTH 14.3 % (9.0-15.0); WHITE BLOOD COUNT (AUTO) 13.8 K/uL (4.8-10.8)
--- NOTE | 2020-07-19 06:54 | NUR ---
CLOSING NOTE PATIENT IS AAOX4, RESTING IN BED, BREATHING EVEN AND UNLABORED ON 4 L OF OXYGEN VIA OXYMIZER. NO S/S ACUTE DISTRESS NOTED. BREATHING IS EVEN AND UNLABORED. PT WAS GIVEN A THROAT LOZANGE PER REQUEST AND ORDERED PRN. SAFETY,FALL, AND ASPIRATION PRECAUTIONS MAINTAINED. CALL LIGHT IS WITH PATIENT. BED IS LOCKED AND ALARMED AT THE LOWEST LEVEL. SIDE RAILS UP X2. WILL ENDORSE TO DAY SHIFT RN.
[2020-07-19 07:09] LABS: HEPATITIS A AB, IgM Negative (Negative); HEPATITIS B CORE AB, IgM Negative (Negative); HEPATITIS B SURFACE AG Negative (Negative)
--- NOTE | 2020-07-19 07:15 | NUR ---
OPENING NOTE Patient resting in the bed. No acute distress. On O2 4L/min via oxymizer. Skin warm and dry to touch. SL intact to RFA, no redness, no swelling, patent. Dusty cath intact to left IJ, covered with clean and dry dressing, no bleeding noted. Discussed the safety issue, use call light when needs help, and plan of care, verbally understanding. Safety measure maintained. Call light within reached. Bed locked in low position, side rails up, bed alarm on. Will continue to monitor.
[2020-07-19 07:45] VITALS: BP_SYST 143
--- NOTE | 2020-07-19 07:55 | NUR ---
SEEN AND EXAMINED BY TEOFILO DE JESUS OWAIS.
[2020-07-19 08:26] LABS: ERYTHROCYTE SEDIMENTATION RATE 15 MM/HR (0-20)
[2020-07-19 08:34] LABS: CREATININE 6.75 mg/dL (0.55-1.30); POTASSIUM 4.2 mmol/L (3.5-5.1)
[2020-07-19 08:57] LABS: C-REACTIVE PROTEIN QUANT 22.3 mg/dL (0-0.5)
[2020-07-19] MEDS: NICOTINE 14 MG/24 HR PATCH.TD24 TD SCH (08:57)
[2020-07-19] MEDS: SEVELAMER CARBONATE 800 MG TABLET PO SCH ×3 (08:57→18:36)
[2020-07-19] MEDS: DULoxetine HCL 30 MG CAPSULE.DR (CYMBALTA) PO SCH ×2 (08:57→20:56)
[2020-07-19] MEDS: ASPIRIN 81 MG TAB.CHEW PO SCH (08:57)
[2020-07-19] MEDS: METOPROLOL TARTRATE 50 MG TABLET PO SCH ×2 (09:01→20:56)
[2020-07-19] MEDS: AZTREONAM 1 GM in NS 50 ML IV SCH ×2 (09:17→20:58)
[2020-07-19] MEDS: LINEZOLID 300 ML IV SCH ×2 (10:09→21:43)
--- NOTE | 2020-07-19 10:18 | NUR ---
SPUTUM SPECIMEN SENT TO LAB.
[2020-07-19] MEDS ORDERED: SODIUM CL 3% FOR INHALATION 15 ML VIAL.NEB INH ONE (12:18)
[2020-07-19 12:56] VITALS: BP_SYST 103
--- NOTE | 2020-07-19 14:25 | NUR ---
SEEN AND EXAMINED BY DAVE DAVIDSON WITH ORDER RECEIVED.
--- NOTE | 2020-07-19 15:37 | NUR ---
Discharge Planning: DCP faxed pt referral to [facility] (f [phone] p [phone]) DCP to follow up
[2020-07-19 16:00] VITALS: BP_SYST 128
--- NOTE | 2020-07-19 16:30 | NUR ---
DR. FUNES, BUSHRA Seen and examined by Dr. Funes with order received. Informed to Dr. Funes, unable to collect urine due to patient only had a few drops of urine. Dr. Funes stated "that's fine, just forget the order". Also asked Dr. Funes if possible to order PT for patient. Per Dr. Funes will enter the order.
--- NOTE | 2020-07-19 16:47 | NUR ---
PT SERVICE DONE TO PATIENT.
[2020-07-19] MEDS: HYDROcodone/ACETAMIN 10-325 MG TAB PO PRN (18:37)
--- NOTE | 2020-07-19 18:38 | NUR ---
P.T. NOTES P.T. EVAL COMPLETED; REFER TO EVAL FOR DETAILS; O2 SAT OXYMIZER 4L=83% W/ EXERTION, 93% AT REST.
--- NOTE | 2020-07-19 18:50 | NUR ---
CLOSING NOTE Patient resting in the bed. No acute distress. Continue on O2 4L/min via oxymizer. Skin warm and dry to touch. SL intact to RFA, no redness, no swelling, patent. Dusty cath intact to left IJ, no bleeding, intact with clean and dry dressing. All needs met. Safety measure maintained. Call light within reached. Bed locked in low position, side rails up, bed alarm on. Will endorse to night nurse.
[2020-07-19 20:00] VITALS: BP_SYST 120
--- NOTE | 2020-07-19 20:00 | NUR ---
Opening notes Pt AAOx4, VSS, afebrile. No s/s distress noted. L. neck IJ herbert cath dressing C/D/I. IV saline lock R. FA 20G clear and patent. Pt c/o rash R. buttock. Noted dry crusted rash R. upper buttock, photo taken, open to air. Will genaro PICHARDO. CAll light within reach. Bed low, locked, siderails up x2. To monitor.
[2020-07-19] MEDS: SIMVASTATIN 20 MG TABLET PO SCH (20:55)
[2020-07-19] MEDS: AMITRIPTYLINE HCL 25 MG TABLET (ELAVIL) PO SCH (20:56)
--- NOTE | 2020-07-19 21:24 | NUR ---
Paged Dr. Adams Yoav
--- NOTE | 2020-07-19 21:27 | NUR ---
Neo Adams, awaiting callback.
--- NOTE | 2020-07-19 21:40 | NUR ---
Paged Dr. Melo, s/w Lena
--- NOTE | 2020-07-19 22:10 | NUR ---
MD called back Received call back from Dr. Meol and informed of rash on upper right buttock and pt states she has history of shingles. Order received for Acyclovir IV 10mg/kg Daily starting tomorrow and to isolate. Will carry out.
[2020-07-20] VITALS: BP_SYST 158
--- NOTE | 2020-07-20 01:00 | NUR ---
Pain Pt c/o generalized pain. Medicated w/ [place] 1 tab PO as needed. Encouraged pt to call for assistance. Pt verb understanding. CAll light within reach. Safety maintained. Airborne isolation maintained. To monitor.
[2020-07-20] MEDS: HYDROcodone/ACETAMIN 10-325 MG TAB PO PRN ×4 (01:01→21:16)
--- NOTE | 2020-07-20 01:50 | NUR ---
Rounds Pt asleep, no s/s distress noted on Oxymizer 4L. Call light within reach. Bed low, locked, siderails up x2, alarm on. To monitor.
--- NOTE | 2020-07-20 02:35 | NUR ---
Rounds Pt asleep, no s/s distress noted. O2 4L via oxymizer on. Call light within reach. BEd low, locked, siderails up x2. To monitor.
[2020-07-20] MEDS: IPRATROPIUM/ALBUTEROL SULFATE 3 ML AMPUL.NEB (DUONEB) INH SCH ×5 (03:00→23:27)
--- NOTE | 2020-07-20 06:11 | NUR ---
IV RE-INSERTION: Complaining of pain to IV site. Restarted on R. posterior forearm 22G. Flushes well w/ NS. IV dc'd R. forearm, catheter tip intact, no active bleed. Pt tolerated well.
[2020-07-20 06:26] LABS: BASOPHILS % (AUTO) 0.1 % (0.0-2.0); EOSINOPHILS # (AUTO) 0.9 K/uL (0.0-0.4); EOSINOPHILS % (AUTO) 6.3 % (0.0-4.0); HEMATOCRIT 27.7 % (36-48); HEMOGLOBIN 9.3 g/dL (12.0-16.0); LYMPHOCYTES # (AUTO) 1.5 K/uL (1.0-5.5); LYMPHOCYTES % (AUTO) 11.1 % (20.5-51.5); MEAN CORPUSCULAR HEMOGLOBIN 30 pg (27-31); MEAN CORPUSCULAR HGB CONC 34 % (32-36); MEAN CORPUSCULAR VOLUME 88 fL (79.0-98.0); MONOCYTES # (AUTO) 0.8 K/uL (0.0-1.0); MONOCYTES % (AUTO) 5.6 % (1.7-9.3); NEUTROPHILS # (AUTO) 10.7 K/uL (1.8-7.7); NEUTROPHILS % (AUTO) 76.9 % (40.0-70.0); PLATELET COUNT (AUTO) 155 K/uL (130-430); RED BLOOD CELL COUNT(AUTO) 3.14 MIL/uL (4.2-6.2); RED CELL DISTRIBUTION WIDTH 14.1 % (9.0-15.0); WHITE BLOOD COUNT (AUTO) 13.8 K/uL (4.8-10.8)
--- NOTE | 2020-07-20 06:28 | NUR ---
CXR at bedside.
[2020-07-20 07:25] LABS: CALCIUM 7.7 mg/dL (8.4-11.0); PHOSPHORUS 5.7 mg/dL (2.7-4.5); POTASSIUM 4.4 mmol/L (3.5-5.1)
--- NOTE | 2020-07-20 08:00 | NUR ---
A/Ox4,BP elevated to 185/92,c/o generalized pain,herbert cath in left IJ in place & intact, give am meds due for HTN,and norco 1 tab po as prn order for pain,needs attended,call light & personal items within pt reach.
[2020-07-20 08:28] LABS: CREATININE 8.53 mg/dL (0.55-1.30)
[2020-07-20] MEDS: SEVELAMER CARBONATE 800 MG TABLET PO SCH ×3 (08:28→18:22)
[2020-07-20] MEDS: ASPIRIN 81 MG TAB.CHEW PO SCH (08:28)
[2020-07-20] MEDS: DULoxetine HCL 30 MG CAPSULE.DR (CYMBALTA) PO SCH ×2 (08:29→20:14)
[2020-07-20] MEDS: METOPROLOL TARTRATE 50 MG TABLET PO SCH ×2 (08:29→20:27)
[2020-07-20] MEDS: AZTREONAM 1 GM in NS 50 ML IV SCH ×2 (08:30→20:14)
[2020-07-20 08:31] LABS: ERYTHROCYTE SEDIMENTATION RATE 13 MM/HR (0-20)
[2020-07-20] MEDS: NICOTINE 14 MG/24 HR PATCH.TD24 TD SCH (08:55)
[2020-07-20] MEDS ORDERED: ACYCLOVIR OINTMENT Non-Formula 15 GM OINT..GM. TP SCH (09:00)
[2020-07-20 09:21] LABS: C-REACTIVE PROTEIN QUANT 11.3 mg/dL (0-0.5)
--- NOTE | 2020-07-20 09:52 | NUR ---
Discharge Planning: DCP followed up with Quin at [place] (f [phone] p [phone]) Quin requested [facility] CM number [phone], DCP to follow up
--- NOTE | 2020-07-20 10:00 | NUR ---
give IV antibiotic due,no adverse reactions noted.hourly rounds made,safety maintained.
[2020-07-20] MEDS: ACYCLOVIR IV 750 MG in D5W 100 ML IV SCH (10:13)
[2020-07-20 12:00] VITALS: BP_SYST 126
[2020-07-20] MEDS ORDERED: HEPARIN SODIUM, PORCINE 10,000 UNITS/ 10 ML VIAL MC ONE (12:00)
[2020-07-20] MEDS ORDERED: HEPARIN SODIUM,PORCINE 5,000 UNITS/ML VIAL MC ONE (12:00)
--- NOTE | 2020-07-20 12:00 | NUR ---
pt is on HD,vss,no acute distress noted.continue to monitor pt.
[2020-07-20] MEDS: LINEZOLID 300 ML IV SCH ×2 (13:46→21:17)
--- NOTE | 2020-07-20 14:00 | NUR ---
HD completed and removed 3 Liter,pt tolerated HD well.
--- NOTE | 2020-07-20 16:00 | NUR ---
c/o severe pain again,and nauseated,give zofran 4 mg IV as prn order for nausea and norco 1 tab po as prn order for pain.
[2020-07-20] MEDS: ONDANSETRON HCL 4 MG/2 ML VIAL IVP PRN (16:42)
[2020-07-20 16:53] VITALS: BP_SYST 90
--- NOTE | 2020-07-20 18:00 | NUR ---
pt resting in bed,eating well for dinner,and reports pain is improved,needs attended and met,hourly rounds made safety maintained.
[2020-07-20] MEDS: AMITRIPTYLINE HCL 25 MG TABLET (ELAVIL) PO SCH (20:14)
[2020-07-20] MEDS: SIMVASTATIN 20 MG TABLET PO SCH (20:14)
--- NOTE | 2020-07-20 20:27 | NUR ---
Lopressor held Pt's BP 91/63 HR 93. Lopressor held. To monitor.
[2020-07-20 20:30] VITALS: BP_SYST 91
--- NOTE | 2020-07-20 20:30 | NUR ---
Opening notes Pt AAOx4, VSS, afebrile. No s/s distress noted. Pt on 3L oxymizer satting at 95%. L. neck IJ herbert cath dressing C/D/I. IV antibiotic administered at ordered rate R. FA 22G good blood return. Call light/items within reach. Bed low, locked, siderails up x2. To monitor.
--- NOTE | 2020-07-20 21:16 | NUR ---
Pain Pt c/o severe generalized pain. Medicated w/ [place] 10 1 tab PO as needed. Informed pt of possible side effect pt verbalized understanding. Call light within reach. To monitor.
--- NOTE | 2020-07-21 00:05 | NUR ---
Rounds Pt asleep, easily awakens, no s/s distress noted. Call light within reach. Bed maintained low, locked, siderails up x2. To monitor.
--- NOTE | 2020-07-21 00:35 | NUR ---
RN ROUNDS: PATIENT IS IN BED, CURRENTLY SLEEPING. BREATHING IS EVEN AND UNLABORED. RECEIVING 3 L OF OXYGEN VIA OXYMIZER. NO S/S ACUTE DISTRESS NOTED. SAFETY,FALL, AND AIRBORNE PRECAUTIONS MAINTAINED. CALL LIGHT IS WITH PATIENT. WILL CONTINUE TO MONITOR. Addendum: 07/22/20 at 0311 by Cayla Kerns RN CORRECTION: DATE 07/22/2020
[2020-07-21 00:51] VITALS: BP_SYST 100
[2020-07-21] MEDS: IPRATROPIUM/ALBUTEROL SULFATE 3 ML AMPUL.NEB (DUONEB) INH SCH ×4 (03:00→20:51)
--- NOTE | 2020-07-21 04:35 | NUR ---
Rounds Pt asleep, no s/s distress noted. L. IJ catheter dressing C/D/I. Call light within reach. Bed maintained low, locked, siderails up x2. To monitor.
--- NOTE | 2020-07-21 06:40 | NUR ---
Closing notes Pt AAOx4, resting in bed. No c/o pain at this time. Pt on 3L oxymizer satting at 95%. L. neck IJ herbert cath dressing C/D/I. IV saline lock R. FA 22G clear and patent. Z guard barrier cream applied to buttocks area and pt states immediate relief. Call light/items within reach. Bed low, locked, siderails up x2. Airborne isolation maintained. To endorse to AM nurse.
[2020-07-21 06:52] LABS: BASOPHILS % (AUTO) 0.4 % (0.0-2.0); EOSINOPHILS # (AUTO) 0.4 K/uL (0.0-0.4); HEMATOCRIT 27.3 % (36-48); HEMOGLOBIN 9.2 g/dL (12.0-16.0); MEAN CORPUSCULAR HEMOGLOBIN 30 pg (27-31); MEAN CORPUSCULAR HGB CONC 34 % (32-36); MEAN CORPUSCULAR VOLUME 88 fL (79.0-98.0); MONOCYTES # (AUTO) 0.6 K/uL (0.0-1.0); MONOCYTES % (AUTO) 5.7 % (1.7-9.3); NEUTROPHILS # (AUTO) 8.7 K/uL (1.8-7.7); NEUTROPHILS % (AUTO) 80.9 % (40.0-70.0); PLATELET COUNT (AUTO) 148 K/uL (130-430); RED CELL DISTRIBUTION WIDTH 14.1 % (9.0-15.0); WHITE BLOOD COUNT (AUTO) 10.7 K/uL (4.8-10.8)
[2020-07-21 07:00] LABS: CALCIUM 7.7 mg/dL (8.4-11.0); CREATININE 6.22 mg/dL (0.55-1.30); PHOSPHORUS 5.2 mg/dL (2.7-4.5); POTASSIUM 3.9 mmol/L (3.5-5.1)
[2020-07-21 07:44] LABS: C-REACTIVE PROTEIN QUANT 8.8 mg/dL (0-0.5)
[2020-07-21 08:00] VITALS: BP_SYST 104
--- NOTE | 2020-07-21 08:05 | NUR ---
Initial notes: Patient is awake, alert and oriented, not showing any signs of distress on 3L Oxymizer. IV line on RFA 22g is intact and new IV AB were hung, currently running. Patient has an active rash in buttocks (crusted) due to shingles, patient remains in isolation due to that. Patient has a L IJ Dusty cath, dressing dry and intact. Patient is awaiting for [place] placement, waiting for a bed, will follow. PM nurse gave me a detailed report on patient. Patient denies pain at this time. Bed is low, locked, 2 side rails are up and call light is within reach.
[2020-07-21] MEDS: SEVELAMER CARBONATE 800 MG TABLET PO SCH ×3 (08:29→17:27)
[2020-07-21] MEDS: ASPIRIN 81 MG TAB.CHEW PO SCH (08:30)
[2020-07-21] MEDS: LINEZOLID 300 ML IV SCH (08:30)
[2020-07-21] MEDS: AZTREONAM 1 GM in NS 50 ML IV SCH ×2 (08:30→21:29)
[2020-07-21] MEDS: DULoxetine HCL 30 MG CAPSULE.DR (CYMBALTA) PO SCH ×2 (08:31→21:31)
[2020-07-21] MEDS: NICOTINE 14 MG/24 HR PATCH.TD24 TD SCH (08:49)
[2020-07-21] MEDS: ACYCLOVIR IV 750 MG in D5W 100 ML IV SCH (08:49)
[2020-07-21 08:50] LABS: ERYTHROCYTE SEDIMENTATION RATE 13 MM/HR (0-20)
[2020-07-21] MEDS: METOPROLOL TARTRATE 50 MG TABLET PO SCH ×2 (09:00→21:31)
--- NOTE | 2020-07-21 10:09 | NUR ---
Patient was encouraged to sit on the chair, she is not showing any signs of distress at this time. IV meds were given. Patient room was cleaned to help declutter room. Patient denies pain at this time. Bed is low, locked, 2 side rails are up and call light is within reach.
--- NOTE | 2020-07-21 12:08 | NUR ---
Meal tray was taken into patients room, patient is eating. Not showing any signs of pain, denies pain at this time. Bed is low, locked, 2 side rails are up and call light is within reach.
[2020-07-21 12:51] VITALS: BP_SYST 111
--- NOTE | 2020-07-21 14:05 | NUR ---
Patient is sitting in chair, needs to use restroom, extra o2 tubbing refrigerator assembler was given to help her reach the toilet, I cleaned and changed all of her bed linen, gave her new disposable underwear. Patient is not showing any signs of distress and denies pain at this time. Bed is low, locked, 2 side rails are up and call light is within reach.
--- NOTE | 2020-07-21 14:22 | NUR ---
CONSULTATION PAGED/CALLED Reason for Consultation: [] placement of perma cath Person Who was Notified: [] Katherine Consulting Physician: [] DR Christie WILSON Decontaminator Specialty: [] GEN SURGEON Ordering Physician: [] DR Marcelo BURGESS
--- NOTE | 2020-07-21 14:24 | NUR ---
PAGED PAGED BUSHRA SHERIDAN AT [phone] SPOKE WITH HODA.
--- NOTE | 2020-07-21 14:45 | NUR ---
PIN MACHINE OPERATOR DR BURGESS WAS INFORMED THAT PT HAS A BED AT [facility]. GAVE AN OK TO TRANSFER PT THERE WITHOUT PERMA CATH PLACEMENT
--- NOTE | 2020-07-21 14:47 | NUR ---
CONSULT FOR DR Soriano [place] WAS CANCELLED, RE: PLACEMENT OF PERMA CATH. SPOKE TO ENEDINA.
--- NOTE | 2020-07-21 14:53 | NUR ---
Discharge Planning: DCP arrange transportation with [facility] [phone] BLS 7:00pm to [facility] ([phone] # to report) Rm [id number]. CM took patient packet to nurse station.
[2020-07-21 15:49] VITALS: BP_SYST 110
[2020-07-21 16:00] VITALS: BP_SYST 129
--- NOTE | 2020-07-21 16:18 | NUR ---
Called [place] to give report for transferred, they informed that when they were called for a bed, they were not informed that the patient was on airborne isolation, the transfer was cancelled as they did not have a room, they asked to call back again tomorrow. I informed charge nurse. I will inform patient of delay.
[2020-07-21] MEDS: ONDANSETRON HCL 4 MG/2 ML VIAL IVP PRN (16:50)
[2020-07-21] MEDS: ACETAMINOPHEN 325 MG TABLET PO PRN ×2 (16:50→21:30)
--- NOTE | 2020-07-21 17:18 | NUR ---
PER [facility] OFFICER AZALEA LESLIE REQUEST, I FAXED LAST PROGRESS NOTE OF ID MD DR MARTINEZ THAT MENTIONED PT HAS SHINGLES AND ON ACYCLOVIR. FAXED TOO THE CURRENT MEDICATION LIST.
--- NOTE | 2020-07-21 19:02 | NUR ---
Closing notes: Patient is awake, alert and oriented, not showing any signs of distress on 3L Oxymizer. IV line on RFA 22g is intact and hung, currently running. Patient has an active rash in buttocks (crusted) due to shingles, patient remains in isolation due to that. Patient has a L IJ Dusty cath, dressing dry and intact. Patient is awaiting for [place] placement, waiting for a bed, will follow. Previous bed offer did not go through once the nurse at [facility] was giving report to mentioned she was not awake the patient was airborne isolation . Patient denies pain at this time. Bed is low, locked, 2 side rails are up and call light is within reach.
--- NOTE | 2020-07-21 19:30 | NUR ---
OPENING NOTE: RECEIVED SBAR REPORT FROM DAY SHIFT RN. PATIENT IS AWAKE, ALERT AND ORIENTED X 4. BREATHING UNLABORED AND EVEN ON 3 L OF OXYGEN VIA OXYMIZER. IV NOTED ON R FOREARM. SALINE LOCK, DRESSING IS DRY AND INTACT. NO SIGN OF INFILTRATION NOTED. PATIENT HAS LJ JEREMY CATH, DRESSING IS DRY AND INTACT. PATIENT REPORTS PAIN IN LOWER BACK, 3 ON THE SCALE OF 0-10. BED IS LOCKED AND IN LOWEST POSITION, CALL LIGHT IS WITH PATIENT. SAFETY,FALL, AND AIRBORNE PRECAUTIONS ARE MAINTAINED. WILL CONTINUE TO MONITOR.
[2020-07-21] MEDS: SIMVASTATIN 20 MG TABLET PO SCH (21:30)
[2020-07-21] MEDS: BENZOCAINE/MENTHOL 1 EACH LOZENGE MM PRN (21:30)
[2020-07-21] MEDS: AMITRIPTYLINE HCL 25 MG TABLET (ELAVIL) PO SCH (21:30)
--- NOTE | 2020-07-21 21:30 | NUR ---
MEDICATION PASS: PATIENT GIVEN SCHEDULED MEDS AND PRN TYLENOL 650 MG FOR PAIN. PATIENT TOLERATED TAKING PO MEDS. NO S/S ACUTE DISTRESS NOTED. SAFETY,FALL, AND AIRBORNE PRECAUTIONS ARE IN PLACE. CALL LIGHT IS WITH PATIENT.
--- NOTE | 2020-07-21 22:05 | NUR ---
SPOKE TO REGARDING CONTINUING PAIN MED ( NORCO 5 AND 10). WILL CARRY OUT NEW ORDERS.
--- NOTE | 2020-07-21 22:30 | NUR ---
INSERTION OF NEW IV: NEW IV INITIATED ON L AC 22 GAUGE. PATIENT TOLERATED WELL. IV MED IS INFUSING ORDERED RATE. NO SIGN OF INFILTRATION NOTED. WILL CONTINUE TO MONITOR.
[2020-07-21] MEDS ORDERED: HYDROcodone/ACETAMIN 10-325 MG TAB PO PRN (23:45)
[2020-07-21] MEDS ORDERED: HYDROcodone/ACETAMIN 5-325 MG TAB (NORCO/ VICODIN) PO PRN (23:45)
[2020-07-22 00:27] VITALS: BP_SYST 116
--- NOTE | 2020-07-22 00:35 | NUR ---
RN ROUNDS: PATIENT IS IN BED, CURRENTLY SLEEPING. BREATHING IS EVEN AND UNLABORED. RECEIVING 3 L OF OXYGEN VIA OXYMIZER. NO S/S ACUTE DISTRESS NOTED. SAFETY,FALL, AND AIRBORNE PRECAUTIONS MAINTAINED. CALL LIGHT IS WITH PATIENT. WILL CONTINUE TO MONITOR.
[2020-07-22] MEDS: IPRATROPIUM/ALBUTEROL SULFATE 3 ML AMPUL.NEB (DUONEB) INH SCH ×7 (02:00→23:00)
--- NOTE | 2020-07-22 02:45 | NUR ---
RN ROUNDS: PATIENT IS IN BED, SLEEPING. RESPIRATION IS EVEN AND UNLABORED. RECEIVING 3 L OF O2 VIA OXYMIZER. NO S/S ACUTE DISTRESS NOTED. SAFETY,FALL, AND AIRBORNE PRECAUTIONS ARE IN PLACE. CALL LIGHT IS WITH PATIENT. WILL CONTINUE TO MONITOR.
--- NOTE | 2020-07-22 04:30 | NUR ---
RN ROUNDS: PATIENT IS IN BED, CURRENTLY SLEEPING. RESPIRATION IS EVEN AND UNLABORED. RECEIVING 3 L OF O2 VIA OXYMIZER. NO S/S ACUTE DISTRESS NOTED. SAFETY,FALL, AND AIRBORNE PRECAUTIONS ARE IN PLACE. CALL LIGHT IS WITH PATIENT. WILL CONTINUE TO MONITOR.
--- NOTE | 2020-07-22 06:20 | NUR ---
CLOSING NOTE: PATIENT IS IN BED, CURRENTLY SLEEPING. RESPIRATION IS EVEN AND UNLABORED. RECEIVING 3 L OF O2 VIA OXYMIZER. NO S/S ACUTE DISTRESS NOTED. IV 22 GAUGE ON L AC, SALINE LOCK, PATENT AND INTACT. NO SIGN OF INFILTRATION NOTED. BED IN LOWEST POSITION,LOCKED, AND BED ALARM ON. CALL LIGHT IS WITH PATIENT. ALL NEEDS MET. WILL ENDORSE PATIENT'S PLAN OF CARE TO DAY SHIFT RN.
--- NOTE | 2020-07-22 07:39 | NUR ---
PAGED PAGED DAVE BERGER AT [phone] SPOKE WITH JAYLA.
[2020-07-22 08:00] VITALS: BP_SYST 135
--- NOTE | 2020-07-22 08:00 | NUR ---
INITIAL NOTES AWAKE,ORIENTED, HAS DRY COUGH. DENIES ANY CHEST PAIN, HAS SOME SHORTNESS OF BREATH. ON O2 3L OXIMIXER. AMBULATE WITH STEADY GAIT. KEEP ON AIRBORNE ISOLATION FOR SHINGLES. ENC TO CALL FOR HELP NEEDED. WILL MONITOR.
[2020-07-22] MEDS ORDERED: FLUCONAZOLE 200 MG TABLET (DIFLUCAN) PO ONE (08:45)
[2020-07-22] MEDS: DULoxetine HCL 30 MG CAPSULE.DR (CYMBALTA) PO SCH ×2 (09:13→21:21)
[2020-07-22] MEDS: SEVELAMER CARBONATE 800 MG TABLET PO SCH ×3 (09:13→17:59)
[2020-07-22] MEDS: ASPIRIN 81 MG TAB.CHEW PO SCH (09:13)
[2020-07-22] MEDS: METOPROLOL TARTRATE 50 MG TABLET PO SCH ×2 (09:14→21:25)
[2020-07-22] MEDS: AZTREONAM 1 GM in NS 50 ML IV SCH ×2 (09:14→21:26)
[2020-07-22] MEDS: NICOTINE 14 MG/24 HR PATCH.TD24 TD SCH (09:15)
[2020-07-22] MEDS: ACYCLOVIR IV 750 MG in D5W 100 ML IV SCH (09:15)
--- NOTE | 2020-07-22 10:00 | NUR ---
Notes- Resting, feels better after breathing treatment. Enc to call for hlep as needed. will monitor.
--- NOTE | 2020-07-22 12:30 | NUR ---
Notes Eating lunch, No acute distress noted. Enc to call for help as needed.
--- NOTE | 2020-07-22 14:00 | NUR ---
Dialysis- per HD nurse the port for HD is clotted at this time. He might not able to do dialysis today.
[2020-07-22] MEDS ORDERED: ALBUMIN HUMAN 25% 200 ML IV ONE (14:15)
[2020-07-22] MEDS ORDERED: ALTEPLASE 2 MG VIAL MC ONE (14:45)
--- NOTE | 2020-07-22 15:31 | NUR ---
Patient did not transfer to [facility] 07/21-no isolation bed available. Pt accepted at [facility], she agreed to transfer to [facility]. Dialysis access is clotted-will attempt HD on 07/23 then pt may go to [facility]. Left message for Dr Adams for order to transfer to [facility] after HD on Monday 07/23.
--- NOTE | 2020-07-22 15:33 | NUR ---
HIGH ALERT NOTE: Called Dr. Monroe back at [phone] identified within the medical roster to verify physician authenticity re activase order to be given by hemodialysis nurse clogged herbert cath access.
[2020-07-22 16:07] VITALS: BP_SYST 104
--- NOTE | 2020-07-22 17:40 | NUR ---
PHYSICAL THERAPY CO-SIGN The Physical Therapy Progress Notes documented by Supervisor Pastry have been reviewed. Reviewed/Co-Signed by: Nydia Nava PT Documentation Done by:AGUSTO ALDANA PTA PROGRESS PERRI; YAMILET 07/21/20 CREATININE=6.22; 07/22/20 Hgb=9.2 Addendum: 07/22/20 at 1741 by Nydia Nava PT Amended: Links added.
--- NOTE | 2020-07-22 18:13 | NUR ---
Notes- Provided dinner tray. Watching TV. No distress noted. Will endorse
--- NOTE | 2020-07-22 19:15 | NUR ---
OPENING NOTE: RECEIVED SBAR REPORT FROM DAY SHIFT RN. PATIENT IS AWAKE, ALERT AND ORIENTED X 4. BREATHING UNLABORED AND EVEN ON 3 L OF OXYGEN VIA OXYMIZER. IV NOTED ON L AC. SALINE LOCK, DRESSING IS DRY AND INTACT. NO SIGN OF INFILTRATION NOTED. PATIENT HAS LJ JEREMY CATH, DRESSING IS DRY AND INTACT. BRUIT NOTED. PATIENT DENIES PAIN. BED IS LOCKED AND IN LOWEST POSITION, CALL LIGHT IS WITH PATIENT. SAFETY,FALL, AND AIRBORNE PRECAUTIONS ARE MAINTAINED. WILL CONTINUE TO MONITOR.
[2020-07-22 20:00] VITALS: BP_SYST 122
[2020-07-22] MEDS: BENZOCAINE/MENTHOL 1 EACH LOZENGE MM PRN (21:21)
[2020-07-22] MEDS: SIMVASTATIN 20 MG TABLET PO SCH (21:21)
[2020-07-22] MEDS: AMITRIPTYLINE HCL 25 MG TABLET (ELAVIL) PO SCH (21:21)
--- NOTE | 2020-07-22 21:25 | NUR ---
MEDICATION PASS: PATIENT GIVEN SCHEDULED MEDS. PATIENT TOLERATED TAKING PO MEDS WELL. NO S/S ACUTE DISTRESS NOTED. SAFETY,FALL, AND AIRBORNE PRECAUTIONS ARE IN PLACE. CALL LIGHT IS WITH PATIENT. WILL MONITOR PATIENT FOR ANY CHANGES.
[2020-07-23] VITALS: BP_SYST 138
--- NOTE | 2020-07-23 02:30 | NUR ---
RN ROUNDS: PATIENT IS IN BED, SLEEPING. RESPIRATION IS EVEN AND UNLABORED. RECEIVING 3 L OF O2 VIA OXYMIZER. SAFETY,FALL, AND AIRBORNE PRECAUTIONS ARE IN PLACE. CALL LIGHT IS WITH PATIENT. WILL CONTINUE TO MONITOR.
[2020-07-23] MEDS: IPRATROPIUM/ALBUTEROL SULFATE 3 ML AMPUL.NEB (DUONEB) INH SCH ×4 (03:00→15:47)
--- NOTE | 2020-07-23 03:53 | NUR ---
RN ROUNDS: PATIENT IS SLEEPING, RESPIRATION IS EVEN AND UNLABORED. NO S/S ACUTE DISTRESS NOTED. SAFETY,FALL,AND AIRBORNE PRECAUTIONS ARE IN PLACE. CALL LIGHT IS WITHIN PATIENT REACH. WILL CONTINUE TO MONITOR.
--- NOTE | 2020-07-23 06:15 | NUR ---
CLOSING NOTE: PATIENT IS IN THE BED, AWAKE, ALERT AND ORIENTED X 4. NO SIGN OF RESPIRATORY DISTRESS NOTED. PATIENT'S MORNING HYGIENE CARE COMPLETED. IV /SALINE LOCK NOTED L AC. PATENT AND FLUSH WELL. NO SIGN OF INFILTRATION. PATIENT DENIES PAIN. SAFETY,FALL, AND AIRBORNE PRECAUTIONS ARE IN PLACE. CALL LIGHT IS WITH PATIENT.ALL NEEDS MET. WILL ENDORSE PATIENT'S PLAN OF CARE TO DAY SHIFT RN.
[2020-07-23 06:39] LABS: BASOPHILS % (AUTO) 0.4 % (0.0-2.0); EOSINOPHILS # (AUTO) 0.2 K/uL (0.0-0.4); HEMATOCRIT 24.5 % (36-48); HEMOGLOBIN 8.3 g/dL (12.0-16.0); LYMPHOCYTES # (AUTO) 1.1 K/uL (1.0-5.5); LYMPHOCYTES % (AUTO) 10.9 % (20.5-51.5); MEAN CORPUSCULAR HEMOGLOBIN 30 pg (27-31); MEAN CORPUSCULAR HGB CONC 34 % (32-36); MEAN CORPUSCULAR VOLUME 88 fL (79.0-98.0); MONOCYTES # (AUTO) 0.5 K/uL (0.0-1.0); NEUTROPHILS # (AUTO) 8.5 K/uL (1.8-7.7); NEUTROPHILS % (AUTO) 81.7 % (40.0-70.0); PLATELET COUNT (AUTO) 159 K/uL (130-430); RED BLOOD CELL COUNT(AUTO) 2.78 MIL/uL (4.2-6.2); RED CELL DISTRIBUTION WIDTH 14.1 % (9.0-15.0); WHITE BLOOD COUNT (AUTO) 10.4 K/uL (4.8-10.8)
--- NOTE | 2020-07-23 07:20 | NUR ---
OPENING NOTES RECEIVED REPORT FROM PT. PT RESTING IN BED, CHEST RISE AND FALL NOTED. NONLABORED BREATHING NOTED, RECEIVING O2 AT 3LPM VIA OXYMIZER. IV LINE INTACT AND PATENT, NO SIGNS OF INFILTRATION NOTED. NO ACUTE DISTRESS NOTED. ALL NEEDS MET. CALL LIGHT IN REACH. FALL AND ASPIRATION PRECAUTIONS IN PLACE. CONTINUE TO MONITOR.
[2020-07-23 07:34] LABS: CALCIUM 7.6 mg/dL (8.4-11.0); POTASSIUM 4.9 mmol/L (3.5-5.1)
[2020-07-23 07:36] LABS: CREATININE 9.34 mg/dL (0.55-1.30)
[2020-07-23 07:37] LABS: PHOSPHORUS 6.7 mg/dL (2.7-4.5)
[2020-07-23 08:00] VITALS: BP_SYST 112
[2020-07-23 08:30] LABS: ERYTHROCYTE SEDIMENTATION RATE 10 MM/HR (0-20)
[2020-07-23] MEDS ORDERED: FLUCONAZOLE 200 MG TABLET (DIFLUCAN) PO SCH (09:00)
--- NOTE | 2020-07-23 09:30 | NUR ---
Case mgt: Rec'd call from Clint Tsai [facility] liaison, confirming bed #401 A (isolation for shingles) is available anytime after confirmation that dialysis catheter is functional. Per our dc senior materials planner notes, we will use [facility] for transport--call smokehouse operator [phone] or main#[phone] for report when ready for transport to [facility]--charge nurse Abby will f/u with HD nurse to verify time frame they will be here to do HD--DENISSE MORGAN
[2020-07-23] MEDS: BENZOCAINE/MENTHOL 1 EACH LOZENGE MM PRN (09:45)
[2020-07-23] MEDS: ACYCLOVIR IV 750 MG in D5W 100 ML IV SCH (09:45)
[2020-07-23] MEDS: ASPIRIN 81 MG TAB.CHEW PO SCH (09:45)
[2020-07-23] MEDS: METOPROLOL TARTRATE 50 MG TABLET PO SCH (09:45)
[2020-07-23] MEDS: SEVELAMER CARBONATE 800 MG TABLET PO SCH ×2 (09:45→15:00)
[2020-07-23] MEDS: NICOTINE 14 MG/24 HR PATCH.TD24 TD SCH (09:45)
[2020-07-23] MEDS: DULoxetine HCL 30 MG CAPSULE.DR (CYMBALTA) PO SCH (09:45)
--- NOTE | 2020-07-23 09:45 | NUR ---
ROUTINE MEDS ADMINISTERED ORDERED PER MD, EDUCATION GIVEN, TOLERATED WELL. CONTINUE TO MONITOR.
--- NOTE | 2020-07-23 11:10 | NUR ---
UNABLE TO GIVE SECOND AM ABX PT RECEIVING DIALYSIS AT THIS TIME, IVA STATED UNABLE TO GIVE MEDS AT THIS TIME. PT JUST FINISHED FIRST SET OF ABX, WILL ADMINISTER SECOND ABX WHEN FINISHED WITH DIALYSIS.
[2020-07-23 11:25] VITALS: BP_SYST 142
--- NOTE | 2020-07-23 12:04 | NUR ---
PT RECEIVING DIALYSIS AT THIS TIME. ENRIQUE STATED UNABLE TO GIVE MEDS AT THIS TIME.
--- NOTE | 2020-07-23 12:44 | NUR ---
Case mgt: Confirmed with Quin at [place] bed#401A is telemetry bed, which it is. Called [facility] at [phone], arranged ACLS transport to [facility] with Rosalino. Gave Rosalino insurance info, isolation for Shingles, telemetry monitoring, and he confirmed 6pm pick and shovel worker but will try to come earlier. Per nurse Abby, pt should complete HD approx 2pm today. DENISSE MORGAN
--- NOTE | 2020-07-23 12:48 | NUR ---
PT STILL RECEIVING DIALYSIS AT THIS TIME.
[2020-07-23 12:53] VITALS: BP_SYST 142
--- NOTE | 2020-07-23 13:29 | NUR ---
Case mgt: Pt's son Joanne Donahue notified that pt is transferring to [facility] via ambulance tonight approx 6pm-He is agreeable and I gave him pt's rm # and phone # to [facility] nursing station. Nurse Edel made aware of transport time-I requested her to include copy of current MAR and HD flow sheet, order for transfer. DENISSE MORGAN
--- NOTE | 2020-07-23 13:51 | NUR ---
PT STILL RECEIVING DIALYSIS AT THIS TIME. ENRIQUE STATED UNABLE TO GIVE MEDS AT THIS TIME.
[2020-07-23] MEDS: AZTREONAM 1 GM in NS 50 ML IV SCH (15:00)
--- NOTE | 2020-07-23 15:04 | NUR ---
I rec'd call from Dr. Baltazar Monroe asking me to let [place] know this pt has been under his care and wants pt to resume HD with him once she discharges back home. I called [place] housecleaner ph#[phone] and left this information on her vm and left my ph# also. Nurse Hollingsworth will pass this information on in report to [facility] also (per Abby). DENISSE MORGAN
--- NOTE | 2020-07-23 15:08 | NUR ---
PT FINISHED WITH DIALYSIS. ADMINISTERED ROUTINE MEDS ORDERED PER MD, EDUCATION GIVEN, TOLERATED WELL. CONTINUE TO MONITOR.
[2020-07-23 15:15] VITALS: BP_SYST 141
--- NOTE | 2020-07-23 17:19 | NUR ---
GAVE REPORT TO EDDIE BARNHART FROM [facility]. NURSE VERBALIZED UNDERSTANDING.
--- NOTE | 2020-07-23 18:37 | NUR ---
D/C Patient Patient given medication reconciliation form and D/C instructions. Exit Care provided. Patient verbalized understanding. MD discussed with patient the results and treatment provided. Ambulatory with assist for discharge to LTAC in [place]. Patient in stable condition, ID band removed. IV catheter removed, intact and dressing applied, no active bleeding. Patient educated on pain management. All belongings sent with patient.
--- NOTE | 2020-07-26 08:38 | NUR ---
SS notes: CLINICAL PHYSICIAN ASSISTANT received call from patient. Pt left AMA at [facility]. Pt inquired about getting DME and HHS. Advised patient to call PCP; pt verbalized understanding.
== END 2020-07-23 18:37 | DRG 193 ==
LOC: SED 21:15 → STU 23:44 → SIC 07-13 06:59 → STU 07-14 18:33
PROVIDERS: ADMIT Preventive Medicine Preventive Medicine/Occupational Environmental Medicine; ATTEND Preventive Medicine Preventive Medicine/Occupational Environmental Medicine
PROC: B548ZZA Ultrasonography of Superior Vena Cava, Guidance (ICD-10-PCS; principal; 2020-07-12)
PROC: 02HV33Z Insertion of Infusion Device into Superior Vena Cava, Percutaneous Approach (ICD-10-PCS; 2020-07-12)
PROC: 5A1D70Z Performance of Urinary Filtration, Intermittent, Less than 6 Hours Per Day (ICD-10-PCS; 2020-07-12)
PROC: 02PAX3Z Removal of Infusion Device from Heart, External Approach (ICD-10-PCS; 2020-07-13)
PROC: B548ZZA Ultrasonography of Superior Vena Cava, Guidance (ICD-10-PCS; 2020-07-13)
PROC: 5A1D70Z Performance of Urinary Filtration, Intermittent, Less than 6 Hours Per Day (ICD-10-PCS; 2020-07-13)
PROC: 5A09357 Assistance with Respiratory Ventilation, Less than 24 Consecutive Hours, Continuous Positive Airway Pressure (ICD-10-PCS; 2020-07-13)
PROC: 5A1D70Z Performance of Urinary Filtration, Intermittent, Less than 6 Hours Per Day (ICD-10-PCS; 2020-07-14)
PROC: 5A1D70Z Performance of Urinary Filtration, Intermittent, Less than 6 Hours Per Day (ICD-10-PCS; 2020-07-16)
PROC: 5A09357 Assistance with Respiratory Ventilation, Less than 24 Consecutive Hours, Continuous Positive Airway Pressure (ICD-10-PCS; 2020-07-18)
PROC: 5A1D70Z Performance of Urinary Filtration, Intermittent, Less than 6 Hours Per Day (ICD-10-PCS; 2020-07-18)
PROC: 5A1D70Z Performance of Urinary Filtration, Intermittent, Less than 6 Hours Per Day (ICD-10-PCS; 2020-07-20)
PROC: 5A1D70Z Performance of Urinary Filtration, Intermittent, Less than 6 Hours Per Day (ICD-10-PCS; 2020-07-22)
PROC: 5A1D70Z Performance of Urinary Filtration, Intermittent, Less than 6 Hours Per Day (ICD-10-PCS; 2020-07-23)
DX: J18.9 Pneumonia, unspecified organism (principal); J96.01 Acute respiratory failure with hypoxia; A41.9 Sepsis, unspecified organism; E43 Unspecified severe protein-calorie malnutrition; T82.838A Hemorrhage due to vascular prosthetic devices, implants and grafts, initial encounter; J44.1 Chronic obstructive pulmonary disease with (acute) exacerbation; E87.1 Hypo-osmolality and hyponatremia; J44.0 Chronic obstructive pulmonary disease with (acute) lower respiratory infection; N17.9 Acute kidney failure, unspecified; N18.5 Chronic kidney disease, stage 5; I32 Pericarditis in diseases classified elsewhere; I13.2 Hypertensive heart and chronic kidney disease with heart failure and with stage 5 chronic kidney disease, or end stage renal disease; Y84.1 Kidney dialysis as the cause of abnormal reaction of the patient, or of later complication, without mention of misadventure at the time of the procedure; J15.9 Unspecified bacterial pneumonia; B02.9 Zoster without complications; E78.5 Hyperlipidemia, unspecified; E83.39 Other disorders of phosphorus metabolism; E83.51 Hypocalcemia; E83.52 Hypercalcemia; E87.5 Hyperkalemia; F17.210 Nicotine dependence, cigarettes, uncomplicated; I25.10 Atherosclerotic heart disease of native coronary artery without angina pectoris; I50.9 Heart failure, unspecified; R73.9 Hyperglycemia, unspecified; D63.1 Anemia in chronic kidney disease; I73.9 Peripheral vascular disease, unspecified; N18.9 Chronic kidney disease, unspecified; Z20.828 Contact with and (suspected) exposure to other viral communicable diseases; Z88.0 Allergy status to penicillin; Z90.710 Acquired absence of both cervix and uterus; Z91.19 Patient's noncompliance with other medical treatment and regimen; Y92.89 Other specified places as the place of occurrence of the external cause; Z68.27 Body mass index [BMI] 27.0-27.9, adult; I25.2 Old myocardial infarction
CPT/HCPCS: 36415; 36600; 71045; 76770; 78580-TC; 80048; 80053; 80074; 82550-TC; 82553-TC; 82803-TC; 82962; 83735-TC; 83880; 84100-TC; 84484; 85025; 85379; 85610-TC; 85651-TC; 86140; 86580; 86705; 86709; 87040-TC; 87070-TC; 87081; 87205-TC; 87340; 90935; 90937; 93005; 93306; 94640; 94660; 94760; 96365; 96367; 96375; 97110-GP; 97112-GP; 97116-GP; 97530-GP; 99291; 99292; A9540; C1751; G0378; J0133; J0360; J0456; J0696; J1030; J1644; J1940; J1956; J2020; J2060; J2405; J2930; J2997; J3490; J7030; J7050; J7060; J7131; U0003

== ENCOUNTER 2020-07-26 12:49 | Inpatient (IN) | payer BC, SELFPAY ==
[~2020-07-26] VITALS: Ht 167.6 cm; Wt 71.7 kg
[~2020-07-26 12:49] MED LIST: ALBMDI INH; AMIT25TA9 PO; ASPI-1155 PO; CLOP75TA32 PO; CYM30 PO; LISI-600 PO; METO-442 PO; SIMV20TA2 PO; TRAM100T28 PO
[2020-07-26 13:00] VITALS: BP_SYST 131
[2020-07-26 14:01] LABS: BASOPHILS # (AUTO) 0.1 K/uL (0.0-0.2); BASOPHILS % (AUTO) 0.6 % (0.0-2.0); EOSINOPHILS % (AUTO) 0.1 % (0.0-4.0); HEMATOCRIT 23.7 % (36-48); HEMOGLOBIN 8.1 g/dL (12.0-16.0); LYMPHOCYTES # (AUTO) 0.9 K/uL (1.0-5.5); MEAN CORPUSCULAR HEMOGLOBIN 30 pg (27-31); MEAN CORPUSCULAR HGB CONC 34 % (32-36); MEAN CORPUSCULAR VOLUME 89 fL (79.0-98.0); MONOCYTES # (AUTO) 0.8 K/uL (0.0-1.0); NEUTROPHILS # (AUTO) 11.5 K/uL (1.8-7.7); NEUTROPHILS % (AUTO) 86.3 % (40.0-70.0); PLATELET COUNT (AUTO) 175 K/uL (130-430); RED BLOOD CELL COUNT(AUTO) 2.67 MIL/uL (4.2-6.2); RED CELL DISTRIBUTION WIDTH 14.5 % (9.0-15.0); WHITE BLOOD COUNT (AUTO) 13.4 K/uL (4.8-10.8)
[2020-07-26 14:13] LABS: CALCIUM 8.8 mg/dL (8.4-11.0); CREATININE 6.55 mg/dL (0.55-1.30); POTASSIUM 4.5 mmol/L (3.5-5.1)
[2020-07-26] MEDS ORDERED: ASPIRIN 81 MG TAB.CHEW PO ONE (14:30)
[2020-07-26] MEDS ORDERED: traMADol HCL HCL 50 MG TABLET (ULTRAM) PO PRN (15:15)
[2020-07-26] MEDS ORDERED: FUROSEMIDE 100 MG/10 ML VIAL IVP ONE (15:30)
[2020-07-26] MEDS ORDERED: LEVOFLOXACIN 500 MG/D5W 100 ML IV ONE (15:30)
[2020-07-26] MEDS ORDERED: DEXAMETHASONE SOD PHOSPHATE 10 MG/ML VIAL IVP ONE (15:30)
[2020-07-26] MEDS ORDERED: PANTOPRAZOLE SODIUM 40 MG/VIAL (PROTONIX) IVP ONE (15:45)
[2020-07-26 16:13] LABS: INR 1.2 (0.8-1.2)
[2020-07-26 16:26] VITALS: BP_SYST 148
[2020-07-26] MEDS ORDERED: ALBUTEROL MDI INHALATION 8 GM INH INH SCH (17:00)
[2020-07-26 20:15] VITALS: BP_SYST 144
[2020-07-26] MEDS: ALBUTEROL SULFATE 0.083% 2.5 MG/3 ML VIAL.NEB INH SCH (20:31)
[2020-07-26 20:39] VITALS: BP_SYST 146
[2020-07-26] MEDS: CLOPIDOGREL BISULFATE 75 MG TABLET PO SCH (21:00)
[2020-07-26] MEDS ORDERED: DECADRON 4 MG TABLET PO SCH (21:00)
[2020-07-26] MEDS: SIMVASTATIN 20 MG TABLET PO SCH (21:00)
[2020-07-26] MEDS: AMITRIPTYLINE HCL 25 MG TABLET (ELAVIL) PO SCH (21:00)
[2020-07-26] MEDS: DULoxetine HCL 30 MG CAPSULE.DR (CYMBALTA) PO SCH (21:00)
[2020-07-26] MEDS: lisinopriL 20 MG TABLET PO SCH (21:00)
[2020-07-26] MEDS: METOPROLOL TARTRATE 50 MG TABLET PO SCH (21:00)
[2020-07-26] MEDS ORDERED: ALBUMIN HUMAN 25% 200 ML IV ONE (22:00)
[2020-07-26] MEDS ORDERED: HEPARIN SODIUM,PORCINE 5,000 UNITS/ML VIAL ONE (22:49)
[2020-07-26 23:15] VITALS: BP_SYST 109
[2020-07-27] VITALS (14 sets, daily range): BP systolic 66–142
[2020-07-27] MEDS: ALBUTEROL SULFATE 0.083% 2.5 MG/3 ML VIAL.NEB INH SCH ×3 (05:12→15:40)
[2020-07-27] MEDS ORDERED: ALBUTEROL SULFATE 0.083% 2.5 MG/3 ML VIAL.NEB INH PRN (05:15)
[2020-07-27 07:30] LABS: BASOPHILS % (AUTO) 0.1 % (0.0-2.0); HEMATOCRIT 23.8 % (36-48); HEMOGLOBIN 7.9 g/dL (12.0-16.0); LYMPHOCYTES # (AUTO) 0.9 K/uL (1.0-5.5); LYMPHOCYTES % (AUTO) 5.9 % (20.5-51.5); MEAN CORPUSCULAR HEMOGLOBIN 30 pg (27-31); MEAN CORPUSCULAR HGB CONC 33 % (32-36); MEAN CORPUSCULAR VOLUME 90 fL (79.0-98.0); MONOCYTES # (AUTO) 1.2 K/uL (0.0-1.0); NEUTROPHILS # (AUTO) 13.2 K/uL (1.8-7.7); PLATELET COUNT (AUTO) 169 K/uL (130-430); RED BLOOD CELL COUNT(AUTO) 2.64 MIL/uL (4.2-6.2); RED CELL DISTRIBUTION WIDTH 14.8 % (9.0-15.0); WHITE BLOOD COUNT (AUTO) 15.3 K/uL (4.8-10.8)
[2020-07-27 08:01] LABS: ALBUMIN 3.7 g/dL (3.4-4.8); CALCIUM 8.9 mg/dL (8.4-11.0); CREATININE 4.65 mg/dL (0.55-1.30); PHOSPHORUS 2.7 mg/dL (2.7-4.5); POTASSIUM 3.6 mmol/L (3.5-5.1); THYROID STIMULATING HORMONE 1.43 uIu/mL (0.36-3.74)
[2020-07-27] MEDS: PANTOPRAZOLE SODIUM 40 MG/VIAL (PROTONIX) IVP SCH ×2 (08:42→21:00)
[2020-07-27] MEDS: ASPIRIN 81 MG TAB.CHEW PO SCH (08:42)
[2020-07-27] MEDS: METOPROLOL TARTRATE 50 MG TABLET PO SCH ×2 (08:43→21:00)
[2020-07-27] MEDS: lisinopriL 20 MG TABLET PO SCH ×2 (08:43→21:00)
[2020-07-27] MEDS: DULoxetine HCL 30 MG CAPSULE.DR (CYMBALTA) PO SCH ×2 (08:44→21:00)
[2020-07-27] MEDS: DECADRON 4 MG TABLET PO SCH ×2 (08:44→21:00)
[2020-07-27] MEDS: D5/0.45 NS 1,000 ML IV SCH (08:45)
[2020-07-27] MEDS: FLUCONAZOLE 100 mg/ NS 50 ML IV SCH (10:54)
[2020-07-27] MEDS: CEFEPIME 1 GM in D5W 50 ML IV SCH (10:54)
[2020-07-27] MEDS ORDERED: *HEPARIN PER PHARMACY XX ONE (13:30)
[2020-07-27] MEDS ORDERED: HEPARIN SODIUM,PORCINE 5,000 UNITS/ML VIAL IVP ONE ×3 (14:30→19:00)
[2020-07-27] MEDS ORDERED: HEPARIN SODIUM,PORCINE 3000 UNITS/0.6 ML BOLUS IVP PRN (14:30)
[2020-07-27] MEDS ORDERED: HEPARIN SODIUM,PORCINE 2000 UNITS/0.4 ML BOLUS IVP PRN (14:30)
[2020-07-27] MEDS: HEPARIN 25,000 UNITS in 250 ML PREMIX IV PRN (16:35)
[2020-07-27] MEDS ORDERED: ALBUMIN HUMAN 25% 200 ML IV ONE ×2 (19:00→19:14)
[2020-07-27] MEDS ORDERED: HEPARIN SODIUM,PORCINE 5,000 UNITS/ML VIAL ONE (19:14)
[2020-07-27] MEDS: CLOPIDOGREL BISULFATE 75 MG TABLET PO SCH (21:00)
[2020-07-27] MEDS: SIMVASTATIN 20 MG TABLET PO SCH (21:00)
[2020-07-27] MEDS: AMITRIPTYLINE HCL 25 MG TABLET (ELAVIL) PO SCH (21:00)
[2020-07-27] MEDS: metroNIDAZOLE 500 mg/NS 100 ML IV SCH (21:00)
[2020-07-27] MEDS ORDERED: ACETAMINOPHEN 325 MG TABLET ONE (23:23)
[2020-07-28 05:10] VITALS: BP_SYST 129
[2020-07-28] MEDS ORDERED: ACETAMINOPHEN 325 MG TABLET PO PRN (05:45)
[2020-07-28] MEDS: HEPARIN 25,000 UNITS in 250 ML PREMIX IV PRN ×2 (05:52→18:11)
[2020-07-28 06:44] LABS: BASOPHILS % (AUTO) 0.2 % (0.0-2.0); HEMATOCRIT 31.4 % (36-48); HEMOGLOBIN 10.6 g/dL (12.0-16.0); LYMPHOCYTES # (AUTO) 0.9 K/uL (1.0-5.5); LYMPHOCYTES % (AUTO) 5.8 % (20.5-51.5); MEAN CORPUSCULAR HEMOGLOBIN 29 pg (27-31); MEAN CORPUSCULAR HGB CONC 34 % (32-36); MEAN CORPUSCULAR VOLUME 87 fL (79.0-98.0); MONOCYTES # (AUTO) 0.5 K/uL (0.0-1.0); MONOCYTES % (AUTO) 3.2 % (1.7-9.3); NEUTROPHILS # (AUTO) 14.6 K/uL (1.8-7.7); NEUTROPHILS % (AUTO) 90.8 % (40.0-70.0); PLATELET COUNT (AUTO) 159 K/uL (130-430); RED BLOOD CELL COUNT(AUTO) 3.61 MIL/uL (4.2-6.2); RED CELL DISTRIBUTION WIDTH 15.1 % (9.0-15.0); WHITE BLOOD COUNT (AUTO) 16.1 K/uL (4.8-10.8)
[2020-07-28 07:26] LABS: CALCIUM 9.2 mg/dL (8.4-11.0); CREATININE 5.99 mg/dL (0.55-1.30); POTASSIUM 4.2 mmol/L (3.5-5.1)
[2020-07-28 07:50] LABS: TOTAL IRON BIND. CAPACITY 194 ug/dL (250-450)
[2020-07-28] MEDS: ALBUTEROL SULFATE 0.083% 2.5 MG/3 ML VIAL.NEB INH SCH ×4 (08:18→19:00)
[2020-07-28] MEDS: D5/0.45 NS 1,000 ML IV SCH ×2 (09:01→23:30)
[2020-07-28] MEDS: DECADRON 4 MG TABLET PO SCH ×2 (09:33→21:04)
[2020-07-28] MEDS: PANTOPRAZOLE SODIUM 40 MG/VIAL (PROTONIX) IVP SCH ×2 (09:33→21:00)
[2020-07-28] MEDS: DULoxetine HCL 30 MG CAPSULE.DR (CYMBALTA) PO SCH ×2 (09:34→20:57)
[2020-07-28] MEDS: lisinopriL 20 MG TABLET PO SCH ×2 (09:34→20:59)
[2020-07-28] MEDS: metroNIDAZOLE 500 mg/NS 100 ML IV SCH ×2 (09:35→21:00)
[2020-07-28] MEDS: ASPIRIN 81 MG TAB.CHEW PO SCH (09:35)
[2020-07-28] MEDS: CEFEPIME 1 GM in D5W 50 ML IV SCH (09:35)
[2020-07-28] MEDS: FLUCONAZOLE 100 mg/ NS 50 ML IV SCH (09:36)
[2020-07-28] MEDS: METOPROLOL TARTRATE 50 MG TABLET PO SCH ×2 (09:37→20:58)
[2020-07-28 11:29] VITALS: BP_SYST 131
[2020-07-28 15:35] VITALS: BP_SYST 124
[2020-07-28] MEDS ORDERED: LEVOFLOXACIN 250 MG/D5W 50 ML IV SCH (16:00)
[2020-07-28 20:00] VITALS: BP_SYST 177
[2020-07-28] MEDS: SIMVASTATIN 20 MG TABLET PO SCH (20:58)
[2020-07-28] MEDS: CLOPIDOGREL BISULFATE 75 MG TABLET PO SCH (20:59)
[2020-07-28] MEDS: AMITRIPTYLINE HCL 25 MG TABLET (ELAVIL) PO SCH (20:59)
[2020-07-29] VITALS: BP_SYST 158
[2020-07-29 06:26] LABS: CALCIUM 8.9 mg/dL (8.4-11.0); POTASSIUM 4.7 mmol/L (3.5-5.1)
[2020-07-29 06:42] LABS: BASOPHILS % (AUTO) 0.1 % (0.0-2.0); HEMATOCRIT 31.5 % (36-48); HEMOGLOBIN 10.5 g/dL (12.0-16.0); LYMPHOCYTES # (AUTO) 0.7 K/uL (1.0-5.5); LYMPHOCYTES % (AUTO) 4.6 % (20.5-51.5); MEAN CORPUSCULAR HEMOGLOBIN 29 pg (27-31); MEAN CORPUSCULAR HGB CONC 33 % (32-36); MEAN CORPUSCULAR VOLUME 88 fL (79.0-98.0); MONOCYTES # (AUTO) 0.6 K/uL (0.0-1.0); MONOCYTES % (AUTO) 4.1 % (1.7-9.3); NEUTROPHILS # (AUTO) 14.6 K/uL (1.8-7.7); NEUTROPHILS % (AUTO) 91.2 % (40.0-70.0); PLATELET COUNT (AUTO) 174 K/uL (130-430); RED BLOOD CELL COUNT(AUTO) 3.58 MIL/uL (4.2-6.2); RED CELL DISTRIBUTION WIDTH 15.8 % (9.0-15.0)
[2020-07-29] MEDS: ALBUTEROL SULFATE 0.083% 2.5 MG/3 ML VIAL.NEB INH SCH ×4 (07:19→20:18)
[2020-07-29 07:26] LABS: CREATININE 8.04 mg/dL (0.55-1.30)
[2020-07-29 08:00] VITALS: BP_SYST 180
[2020-07-29] MEDS: metroNIDAZOLE 500 mg/NS 100 ML IV SCH ×2 (08:56→21:03)
[2020-07-29] MEDS: ASPIRIN 81 MG TAB.CHEW PO SCH (08:56)
[2020-07-29] MEDS: METOPROLOL TARTRATE 50 MG TABLET PO SCH ×2 (08:57→21:05)
[2020-07-29] MEDS: lisinopriL 20 MG TABLET PO SCH ×2 (08:57→21:05)
[2020-07-29] MEDS: DECADRON 4 MG TABLET PO SCH ×2 (08:57→21:04)
[2020-07-29] MEDS: DULoxetine HCL 30 MG CAPSULE.DR (CYMBALTA) PO SCH ×2 (08:57→21:04)
[2020-07-29] MEDS: PANTOPRAZOLE SODIUM 40 MG/VIAL (PROTONIX) IVP SCH ×2 (08:57→21:03)
[2020-07-29] MEDS: FLUCONAZOLE 100 mg/ NS 50 ML IV SCH (09:49)
[2020-07-29] MEDS: HEPARIN 25,000 UNITS in 250 ML PREMIX IV PRN ×2 (09:50→14:13)
[2020-07-29] MEDS: CEFEPIME 1 GM in D5W 50 ML IV SCH (11:26)
[2020-07-29 12:51] VITALS: BP_SYST 141
[2020-07-29 16:48] VITALS: BP_SYST 108
[2020-07-29] MEDS: EPOETIN ALFA 3,000 UNITS/ML VIAL SUBCUT SCH (17:09)
[2020-07-29 20:00] VITALS: BP_SYST 167
[2020-07-29] MEDS: D5/0.45 NS 1,000 ML IV SCH (21:04)
[2020-07-29] MEDS: AMITRIPTYLINE HCL 25 MG TABLET (ELAVIL) PO SCH (21:04)
[2020-07-29] MEDS: CLOPIDOGREL BISULFATE 75 MG TABLET PO SCH (21:04)
[2020-07-29] MEDS: SIMVASTATIN 20 MG TABLET PO SCH (21:04)
[2020-07-30] VITALS: BP_SYST 144
[2020-07-30 06:32] LABS: BASOPHILS % (AUTO) 0.1 % (0.0-2.0); HEMATOCRIT 30.3 % (36-48); LYMPHOCYTES # (AUTO) 0.8 K/uL (1.0-5.5); LYMPHOCYTES % (AUTO) 7.6 % (20.5-51.5); MEAN CORPUSCULAR HEMOGLOBIN 29 pg (27-31); MEAN CORPUSCULAR HGB CONC 33 % (32-36); MEAN CORPUSCULAR VOLUME 89 fL (79.0-98.0); MONOCYTES # (AUTO) 0.7 K/uL (0.0-1.0); MONOCYTES % (AUTO) 6.2 % (1.7-9.3); NEUTROPHILS # (AUTO) 9.6 K/uL (1.8-7.7); NEUTROPHILS % (AUTO) 86.1 % (40.0-70.0); PLATELET COUNT (AUTO) 136 K/uL (130-430); RED BLOOD CELL COUNT(AUTO) 3.42 MIL/uL (4.2-6.2); RED CELL DISTRIBUTION WIDTH 15.7 % (9.0-15.0); WHITE BLOOD COUNT (AUTO) 11.1 K/uL (4.8-10.8)
[2020-07-30 06:47] LABS: ALBUMIN 3.4 g/dL (3.4-4.8); CALCIUM 8.1 mg/dL (8.4-11.0); CREATININE 5.96 mg/dL (0.55-1.30); PHOSPHORUS 5.6 mg/dL (2.7-4.5); TOTAL BILIRUBIN 0.9 mg/dL (0.0-1.0)
[2020-07-30] MEDS: ALBUTEROL SULFATE 0.083% 2.5 MG/3 ML VIAL.NEB INH SCH ×3 (07:00→15:00)
[2020-07-30] MEDS: CEFEPIME 1 GM in D5W 50 ML IV SCH (09:00)
[2020-07-30] MEDS: metroNIDAZOLE 500 mg/NS 100 ML IV SCH ×2 (09:00→21:21)
[2020-07-30] MEDS: ASPIRIN 81 MG TAB.CHEW PO SCH (09:01)
[2020-07-30] MEDS: PANTOPRAZOLE SODIUM 40 MG/VIAL (PROTONIX) IVP SCH ×2 (09:01→21:21)
[2020-07-30] MEDS: DECADRON 4 MG TABLET PO SCH ×2 (09:01→21:26)
[2020-07-30] MEDS: DULoxetine HCL 30 MG CAPSULE.DR (CYMBALTA) PO SCH ×2 (09:01→21:21)
[2020-07-30] MEDS: lisinopriL 20 MG TABLET PO SCH ×2 (09:02→21:23)
[2020-07-30] MEDS: METOPROLOL TARTRATE 50 MG TABLET PO SCH ×2 (09:03→21:22)
[2020-07-30] MEDS: FLUCONAZOLE 100 mg/ NS 50 ML IV SCH (09:08)
[2020-07-30 11:27] VITALS: BP_SYST 146
[2020-07-30 15:26] VITALS: BP_SYST 149
[2020-07-30 17:47] VITALS: BP_SYST 149
[2020-07-30] MEDS: AMITRIPTYLINE HCL 25 MG TABLET (ELAVIL) PO SCH (21:23)
[2020-07-30] MEDS: SIMVASTATIN 20 MG TABLET PO SCH (21:23)
[2020-07-30] MEDS: CLOPIDOGREL BISULFATE 75 MG TABLET PO SCH (21:23)
[2020-07-31] VITALS: BP_SYST 153
[2020-07-31 01:55] VITALS: BP_SYST 134
[2020-07-31 06:45] LABS: BASOPHILS % (AUTO) 0.2 % (0.0-2.0); HEMATOCRIT 30.4 % (36-48); HEMOGLOBIN 9.9 g/dL (12.0-16.0); LYMPHOCYTES # (AUTO) 0.4 K/uL (1.0-5.5); LYMPHOCYTES % (AUTO) 4.1 % (20.5-51.5); MEAN CORPUSCULAR HEMOGLOBIN 29 pg (27-31); MEAN CORPUSCULAR HGB CONC 33 % (32-36); MEAN CORPUSCULAR VOLUME 90 fL (79.0-98.0); MONOCYTES # (AUTO) 0.2 K/uL (0.0-1.0); MONOCYTES % (AUTO) 2.3 % (1.7-9.3); NEUTROPHILS # (AUTO) 10.3 K/uL (1.8-7.7); NEUTROPHILS % (AUTO) 93.4 % (40.0-70.0); PLATELET COUNT (AUTO) 139 K/uL (130-430); RED BLOOD CELL COUNT(AUTO) 3.38 MIL/uL (4.2-6.2); RED CELL DISTRIBUTION WIDTH 15.9 % (9.0-15.0)
[2020-07-31 07:08] LABS: CALCIUM 8.3 mg/dL (8.4-11.0); POTASSIUM 5.2 mmol/L (3.5-5.1)
[2020-07-31 07:21] LABS: CREATININE 8.1 mg/dL (0.55-1.30)
[2020-07-31 08:00] VITALS: BP_SYST 154
[2020-07-31] MEDS: D5/0.45 NS 1,000 ML IV SCH (09:09)
[2020-07-31] MEDS: metroNIDAZOLE 500 mg/NS 100 ML IV SCH ×2 (09:10→22:54)
[2020-07-31] MEDS: FLUCONAZOLE 100 mg/ NS 50 ML IV SCH (09:10)
[2020-07-31] MEDS: PANTOPRAZOLE SODIUM 40 MG/VIAL (PROTONIX) IVP SCH ×2 (09:11→22:51)
[2020-07-31] MEDS: ASPIRIN 81 MG TAB.CHEW PO SCH (09:11)
[2020-07-31] MEDS: DULoxetine HCL 30 MG CAPSULE.DR (CYMBALTA) PO SCH ×2 (09:11→22:52)
[2020-07-31] MEDS: CEFEPIME 1 GM in D5W 50 ML IV SCH (09:11)
[2020-07-31] MEDS: ACETAMINOPHEN 325 MG TABLET PO PRN ×3 (09:12→22:52)
[2020-07-31] MEDS: lisinopriL 20 MG TABLET PO SCH ×2 (09:12→22:53)
[2020-07-31] MEDS: METOPROLOL TARTRATE 50 MG TABLET PO SCH ×2 (09:13→22:53)
[2020-07-31] MEDS: DECADRON 4 MG TABLET PO SCH ×2 (09:13→22:53)
[2020-07-31 11:56] VITALS: BP_SYST 156
[2020-07-31] MEDS: ALBUTEROL SULFATE 0.083% 2.5 MG/3 ML VIAL.NEB INH SCH (15:00)
[2020-07-31 16:03] VITALS: BP_SYST 146
[2020-07-31 20:00] VITALS: BP_SYST 153
[2020-07-31] MEDS ORDERED: HEPARIN SODIUM,PORCINE 5,000 UNITS/ML VIAL IVP ONE (22:15)
[2020-07-31] MEDS: AMITRIPTYLINE HCL 25 MG TABLET (ELAVIL) PO SCH (22:53)
[2020-07-31] MEDS: SIMVASTATIN 20 MG TABLET PO SCH (22:53)
[2020-07-31] MEDS: CLOPIDOGREL BISULFATE 75 MG TABLET PO SCH (22:53)
[2020-08-01] VITALS: BP_SYST 153
[2020-08-01] MEDS: D5/0.45 NS 1,000 ML IV SCH (04:30)
[2020-08-01 07:35] LABS: BASOPHILS % (AUTO) 0.2 % (0.0-2.0); HEMATOCRIT 31.2 % (36-48); HEMOGLOBIN 10.3 g/dL (12.0-16.0); LYMPHOCYTES # (AUTO) 0.5 K/uL (1.0-5.5); LYMPHOCYTES % (AUTO) 3.6 % (20.5-51.5); MEAN CORPUSCULAR HEMOGLOBIN 30 pg (27-31); MEAN CORPUSCULAR HGB CONC 33 % (32-36); MEAN CORPUSCULAR VOLUME 90 fL (79.0-98.0); MONOCYTES # (AUTO) 0.4 K/uL (0.0-1.0); MONOCYTES % (AUTO) 3.5 % (1.7-9.3); NEUTROPHILS # (AUTO) 11.6 K/uL (1.8-7.7); NEUTROPHILS % (AUTO) 92.7 % (40.0-70.0); PLATELET COUNT (AUTO) 147 K/uL (130-430); RED BLOOD CELL COUNT(AUTO) 3.46 MIL/uL (4.2-6.2); WHITE BLOOD COUNT (AUTO) 12.5 K/uL (4.8-10.8)
[2020-08-01 07:45] VITALS: BP_SYST 159
[2020-08-01 08:05] LABS: CALCIUM 8.1 mg/dL (8.4-11.0); CREATININE 5.96 mg/dL (0.55-1.30); POTASSIUM 4.5 mmol/L (3.5-5.1)
[2020-08-01] MEDS ORDERED: THIAMINE HCL 100 MG in NS 50 ML IV ONE (08:30)
[2020-08-01] MEDS: PANTOPRAZOLE SODIUM 40 MG/VIAL (PROTONIX) IVP SCH ×3 (09:00→20:14)
[2020-08-01] MEDS: metroNIDAZOLE 500 mg/NS 100 ML IV SCH (09:51)
[2020-08-01] MEDS: THIAMINE HCL 100 MG TABLET PO SCH (09:52)
[2020-08-01] MEDS: lisinopriL 20 MG TABLET PO SCH ×2 (09:52→20:14)
[2020-08-01] MEDS: EPOETIN ALFA 3,000 UNITS/ML VIAL SUBCUT SCH (09:53)
[2020-08-01] MEDS: DECADRON 4 MG TABLET PO SCH (09:53)
[2020-08-01] MEDS: METOPROLOL TARTRATE 50 MG TABLET PO SCH ×2 (09:53→20:13)
[2020-08-01] MEDS: DULoxetine HCL 30 MG CAPSULE.DR (CYMBALTA) PO SCH ×2 (09:53→20:14)
[2020-08-01] MEDS: ASPIRIN 81 MG TAB.CHEW PO SCH (09:54)
[2020-08-01] MEDS: FLUCONAZOLE 100 mg/ NS 50 ML IV SCH (11:45)
[2020-08-01] MEDS: CEFEPIME 1 GM in D5W 50 ML IV SCH (11:45)
[2020-08-01 12:30] VITALS: BP_SYST 150
[2020-08-01] MEDS: LORazepam 2 MG/ML VIAL IVP PRN (14:06)
[2020-08-01 16:45] VITALS: BP_SYST 145
[2020-08-01] MEDS: NICOTINE 7 MG/24 HR PATCH.TD24 TD SCH (18:31)
[2020-08-01 20:00] VITALS: BP_SYST 147
[2020-08-01] MEDS: CLOPIDOGREL BISULFATE 75 MG TABLET PO SCH (20:13)
[2020-08-01] MEDS: AMITRIPTYLINE HCL 25 MG TABLET (ELAVIL) PO SCH (20:14)
[2020-08-01] MEDS: SIMVASTATIN 20 MG TABLET PO SCH (20:14)
[2020-08-02] VITALS (7 sets, daily range): BP systolic 107–166
[2020-08-02 07:00] LABS: BASOPHILS % (AUTO) 0.2 % (0.0-2.0); EOSINOPHILS % (AUTO) 0.3 % (0.0-4.0); HEMATOCRIT 32.4 % (36-48); HEMOGLOBIN 10.4 g/dL (12.0-16.0); LYMPHOCYTES # (AUTO) 1.2 K/uL (1.0-5.5); LYMPHOCYTES % (AUTO) 9.9 % (20.5-51.5); MEAN CORPUSCULAR HEMOGLOBIN 29 pg (27-31); MEAN CORPUSCULAR HGB CONC 32 % (32-36); MEAN CORPUSCULAR VOLUME 91 fL (79.0-98.0); MONOCYTES # (AUTO) 0.8 K/uL (0.0-1.0); MONOCYTES % (AUTO) 6.5 % (1.7-9.3); NEUTROPHILS # (AUTO) 10.3 K/uL (1.8-7.7); NEUTROPHILS % (AUTO) 83.1 % (40.0-70.0); PLATELET COUNT (AUTO) 188 K/uL (130-430); RED BLOOD CELL COUNT(AUTO) 3.57 MIL/uL (4.2-6.2); RED CELL DISTRIBUTION WIDTH 16.4 % (9.0-15.0); WHITE BLOOD COUNT (AUTO) 12.4 K/uL (4.8-10.8)
[2020-08-02 07:33] LABS: CALCIUM 8.1 mg/dL (8.4-11.0); PHOSPHORUS 6.9 mg/dL (2.7-4.5); POTASSIUM 5.3 mmol/L (3.5-5.1)
[2020-08-02 07:36] LABS: CREATININE 7.75 mg/dL (0.55-1.30)
[2020-08-02] MEDS: METOPROLOL TARTRATE 50 MG TABLET PO SCH ×2 (09:00→20:32)
[2020-08-02] MEDS: PANTOPRAZOLE SODIUM 40 MG/VIAL (PROTONIX) IVP SCH ×2 (09:34→20:29)
[2020-08-02] MEDS: ASPIRIN 81 MG TAB.CHEW PO SCH (09:35)
[2020-08-02] MEDS: lisinopriL 20 MG TABLET PO SCH ×2 (09:35→20:32)
[2020-08-02] MEDS: THIAMINE HCL 100 MG TABLET PO SCH (09:35)
[2020-08-02] MEDS: DULoxetine HCL 30 MG CAPSULE.DR (CYMBALTA) PO SCH ×2 (09:35→20:30)
[2020-08-02] MEDS: DECADRON 4 MG TABLET PO SCH (09:41)
[2020-08-02] MEDS: FLUCONAZOLE 100 mg/ NS 50 ML IV SCH (09:43)
[2020-08-02] MEDS: CEFEPIME 1 GM in D5W 50 ML IV SCH (09:43)
[2020-08-02] MEDS ORDERED: HEPARIN IV FLUSH 1 UNIT/ML PF 6ML SYRINGE IV ONE ×2 (12:00)
[2020-08-02] MEDS ORDERED: HEPARIN SODIUM,PORCINE 5,000 UNITS/ML VIAL IV ONE ×2 (12:00)
[2020-08-02] MEDS ORDERED: traMADol HCL HCL 50 MG TABLET (ULTRAM) ONE (13:37)
[2020-08-02] MEDS: traMADol HCL HCL 50 MG TABLET (ULTRAM) PO PRN (13:39)
[2020-08-02] MEDS: NICOTINE 7 MG/24 HR PATCH.TD24 TD SCH (18:10)
[2020-08-02] MEDS: AMITRIPTYLINE HCL 25 MG TABLET (ELAVIL) PO SCH (20:29)
[2020-08-02] MEDS: SIMVASTATIN 20 MG TABLET PO SCH (20:30)
[2020-08-02] MEDS: CLOPIDOGREL BISULFATE 75 MG TABLET PO SCH (20:30)
[2020-08-03] VITALS: BP_SYST 155
[2020-08-03] MEDS: EPOETIN ALFA 3,000 UNITS/ML VIAL SUBCUT SCH (09:00)
[2020-08-03] MEDS: ASPIRIN 81 MG TAB.CHEW PO SCH (09:00)
[2020-08-03] MEDS: PANTOPRAZOLE SODIUM 40 MG/VIAL (PROTONIX) IVP SCH ×2 (09:00→21:24)
[2020-08-03] MEDS: DULoxetine HCL 30 MG CAPSULE.DR (CYMBALTA) PO SCH ×2 (09:01→21:22)
[2020-08-03] MEDS: lisinopriL 20 MG TABLET PO SCH ×2 (09:01→21:24)
[2020-08-03] MEDS: THIAMINE HCL 100 MG TABLET PO SCH (09:01)
[2020-08-03] MEDS: METOPROLOL TARTRATE 50 MG TABLET PO SCH ×2 (09:02→21:23)
[2020-08-03 12:18] VITALS: BP_SYST 158
[2020-08-03] MEDS: DECADRON 4 MG TABLET PO SCH (15:05)
[2020-08-03 16:23] VITALS: BP_SYST 145
[2020-08-03] MEDS: NICOTINE 7 MG/24 HR PATCH.TD24 TD SCH (17:57)
[2020-08-03] MEDS: D5/0.45 NS 1,000 ML IV SCH (18:00)
[2020-08-03 20:00] VITALS: BP_SYST 157
[2020-08-03] MEDS: AMITRIPTYLINE HCL 25 MG TABLET (ELAVIL) PO SCH (21:24)
[2020-08-03] MEDS: CLOPIDOGREL BISULFATE 75 MG TABLET PO SCH (21:24)
[2020-08-03] MEDS: SIMVASTATIN 20 MG TABLET PO SCH (21:24)
[2020-08-04 00:02] VITALS: BP_SYST 149
[2020-08-04 07:03] LABS: BASOPHILS % (AUTO) 0.1 % (0.0-2.0); EOSINOPHILS % (AUTO) 0.3 % (0.0-4.0); HEMATOCRIT 30.3 % (36-48); HEMOGLOBIN 10.1 g/dL (12.0-16.0); LYMPHOCYTES # (AUTO) 0.8 K/uL (1.0-5.5); LYMPHOCYTES % (AUTO) 9.5 % (20.5-51.5); MEAN CORPUSCULAR HEMOGLOBIN 30 pg (27-31); MEAN CORPUSCULAR HGB CONC 34 % (32-36); MEAN CORPUSCULAR VOLUME 90 fL (79.0-98.0); MONOCYTES # (AUTO) 0.6 K/uL (0.0-1.0); MONOCYTES % (AUTO) 7.2 % (1.7-9.3); NEUTROPHILS # (AUTO) 7.4 K/uL (1.8-7.7); NEUTROPHILS % (AUTO) 82.9 % (40.0-70.0); PLATELET COUNT (AUTO) 241 K/uL (130-430); RED BLOOD CELL COUNT(AUTO) 3.36 MIL/uL (4.2-6.2); RED CELL DISTRIBUTION WIDTH 16.8 % (9.0-15.0); WHITE BLOOD COUNT (AUTO) 8.9 K/uL (4.8-10.8)
[2020-08-04 07:18] LABS: CALCIUM 8.2 mg/dL (8.4-11.0)
[2020-08-04 07:55] VITALS: BP_SYST 135
[2020-08-04 08:20] LABS: CREATININE 7.94 mg/dL (0.55-1.30)
[2020-08-04] MEDS ORDERED: HEPARIN SODIUM,PORCINE 5,000 UNITS/ML VIAL IVP ONE (08:30)
[2020-08-04] MEDS ORDERED: traMADol HCL HCL 50 MG TABLET (ULTRAM) ONE (09:09)
[2020-08-04] MEDS: traMADol HCL HCL 50 MG TABLET (ULTRAM) PO PRN (09:12)
[2020-08-04] MEDS: PANTOPRAZOLE SODIUM 40 MG/VIAL (PROTONIX) IVP SCH ×2 (10:21→20:13)
[2020-08-04] MEDS: ASPIRIN 81 MG TAB.CHEW PO SCH (10:21)
[2020-08-04] MEDS: THIAMINE HCL 100 MG TABLET PO SCH (10:21)
[2020-08-04] MEDS: METOPROLOL TARTRATE 50 MG TABLET PO SCH ×2 (10:23→20:10)
[2020-08-04] MEDS: DULoxetine HCL 30 MG CAPSULE.DR (CYMBALTA) PO SCH ×2 (10:23→20:11)
[2020-08-04] MEDS: DECADRON 4 MG TABLET PO SCH (10:23)
[2020-08-04] MEDS: lisinopriL 20 MG TABLET PO SCH ×2 (10:23→20:11)
[2020-08-04] MEDS: CEFEPIME 1 GM in D5W 50 ML IV SCH (10:31)
[2020-08-04 12:52] VITALS: BP_SYST 135
[2020-08-04 16:45] VITALS: BP_SYST 158
[2020-08-04] MEDS: NICOTINE 7 MG/24 HR PATCH.TD24 TD SCH (17:29)
[2020-08-04 20:00] VITALS: BP_SYST 130
[2020-08-04] MEDS: SIMVASTATIN 20 MG TABLET PO SCH (20:11)
[2020-08-04] MEDS: AMITRIPTYLINE HCL 25 MG TABLET (ELAVIL) PO SCH (20:11)
[2020-08-04] MEDS: ACETAMINOPHEN 325 MG TABLET PO PRN (20:11)
[2020-08-05 00:57] VITALS: BP_SYST 133
[2020-08-05 08:00] VITALS: BP_SYST 164
[2020-08-05] MEDS: EPOETIN ALFA 3,000 UNITS/ML VIAL SUBCUT SCH (09:23)
[2020-08-05] MEDS: CEFEPIME 1 GM in D5W 50 ML IV SCH (09:24)
[2020-08-05] MEDS: THIAMINE HCL 100 MG TABLET PO SCH (09:26)
[2020-08-05] MEDS: lisinopriL 20 MG TABLET PO SCH ×2 (09:26→20:50)
[2020-08-05] MEDS: DULoxetine HCL 30 MG CAPSULE.DR (CYMBALTA) PO SCH ×2 (09:26→20:49)
[2020-08-05] MEDS: METOPROLOL TARTRATE 50 MG TABLET PO SCH ×2 (09:26→20:50)
[2020-08-05] MEDS: PANTOPRAZOLE SODIUM 40 MG/VIAL (PROTONIX) IVP SCH ×2 (09:27→20:50)
[2020-08-05 11:40] VITALS: BP_SYST 164
[2020-08-05 12:00] VITALS: BP_SYST 163
[2020-08-05 16:00] VITALS: BP_SYST 164
[2020-08-05] MEDS: DECADRON 4 MG TABLET PO SCH (16:54)
[2020-08-05] MEDS: NICOTINE 7 MG/24 HR PATCH.TD24 TD SCH (16:56)
[2020-08-05] MEDS: AMITRIPTYLINE HCL 25 MG TABLET (ELAVIL) PO SCH (20:49)
[2020-08-05] MEDS: SIMVASTATIN 20 MG TABLET PO SCH (20:50)
[2020-08-05 20:51] VITALS: BP_SYST 164
[2020-08-06] MEDS: ACETAMINOPHEN 325 MG TABLET PO PRN ×2 (01:19→22:25)
[2020-08-06 04:48] VITALS: BP_SYST 159
[2020-08-06 06:48] LABS: BASOPHILS % (AUTO) 0.1 % (0.0-2.0); EOSINOPHILS % (AUTO) 0.1 % (0.0-4.0); HEMATOCRIT 34.1 % (36-48); HEMOGLOBIN 11.2 g/dL (12.0-16.0); LYMPHOCYTES # (AUTO) 0.7 K/uL (1.0-5.5); LYMPHOCYTES % (AUTO) 8.4 % (20.5-51.5); MEAN CORPUSCULAR HEMOGLOBIN 30 pg (27-31); MEAN CORPUSCULAR HGB CONC 33 % (32-36); MEAN CORPUSCULAR VOLUME 90 fL (79.0-98.0); MONOCYTES # (AUTO) 0.4 K/uL (0.0-1.0); MONOCYTES % (AUTO) 4.8 % (1.7-9.3); NEUTROPHILS # (AUTO) 7.2 K/uL (1.8-7.7); NEUTROPHILS % (AUTO) 86.6 % (40.0-70.0); PLATELET COUNT (AUTO) 274 K/uL (130-430); RED BLOOD CELL COUNT(AUTO) 3.81 MIL/uL (4.2-6.2); RED CELL DISTRIBUTION WIDTH 16.2 % (9.0-15.0); WHITE BLOOD COUNT (AUTO) 8.3 K/uL (4.8-10.8)
[2020-08-06 07:31] LABS: CALCIUM 8.3 mg/dL (8.4-11.0); PHOSPHORUS 7.1 mg/dL (2.7-4.5); POTASSIUM 4.6 mmol/L (3.5-5.1)
[2020-08-06 07:45] LABS: CREATININE 8.22 mg/dL (0.55-1.30)
[2020-08-06] MEDS: THIAMINE HCL 100 MG TABLET PO SCH (08:18)
[2020-08-06] MEDS: DECADRON 4 MG TABLET PO SCH (08:18)
[2020-08-06] MEDS: DULoxetine HCL 30 MG CAPSULE.DR (CYMBALTA) PO SCH ×2 (08:18→20:09)
[2020-08-06] MEDS: PANTOPRAZOLE SODIUM 40 MG/VIAL (PROTONIX) IVP SCH ×2 (08:18→20:12)
[2020-08-06 08:28] VITALS: BP_SYST 164
[2020-08-06] MEDS ORDERED: HEPARIN SODIUM,PORCINE 5,000 UNITS/ML VIAL IVP ONE ×4 (09:00→09:15)
[2020-08-06 12:00] VITALS: BP_SYST 120
[2020-08-06] MEDS: METOPROLOL TARTRATE 50 MG TABLET PO SCH ×2 (13:18→20:10)
[2020-08-06] MEDS: lisinopriL 20 MG TABLET PO SCH ×2 (13:18→20:10)
[2020-08-06 16:00] VITALS: BP_SYST 162
[2020-08-06] MEDS ORDERED: SEVELAMER CARBONATE 800 MG TABLET PO ONE (16:00)
[2020-08-06] MEDS ORDERED: SEVELAMER CARBONATE 800 MG TABLET ONE ×2 (16:53→16:58)
[2020-08-06] MEDS: NICOTINE 7 MG/24 HR PATCH.TD24 TD SCH (16:56)
[2020-08-06 20:00] VITALS: BP_SYST 164
[2020-08-06] MEDS: AMITRIPTYLINE HCL 25 MG TABLET (ELAVIL) PO SCH (20:09)
[2020-08-06] MEDS: SIMVASTATIN 20 MG TABLET PO SCH (20:09)
[2020-08-07 07:51] LABS: CALCIUM 8.4 mg/dL (8.4-11.0); CREATININE 6.58 mg/dL (0.55-1.30); POTASSIUM 4.6 mmol/L (3.5-5.1)
[2020-08-07 08:15] VITALS: BP_SYST 162
[2020-08-07] MEDS: SEVELAMER CARBONATE 800 MG TABLET PO SCH ×3 (08:54→17:52)
[2020-08-07] MEDS: lisinopriL 20 MG TABLET PO SCH ×2 (08:54→20:14)
[2020-08-07] MEDS: THIAMINE HCL 100 MG TABLET PO SCH (08:54)
[2020-08-07] MEDS: PANTOPRAZOLE SODIUM 40 MG/VIAL (PROTONIX) IVP SCH ×2 (08:55→20:13)
[2020-08-07] MEDS: DULoxetine HCL 30 MG CAPSULE.DR (CYMBALTA) PO SCH ×2 (08:55→20:13)
[2020-08-07] MEDS: predniSONE 20 MG TABLET PO SCH (08:55)
[2020-08-07] MEDS: METOPROLOL TARTRATE 50 MG TABLET PO SCH ×2 (08:55→20:14)
[2020-08-07 12:15] VITALS: BP_SYST 155
[2020-08-07 16:10] VITALS: BP_SYST 159
[2020-08-07] MEDS: NICOTINE 7 MG/24 HR PATCH.TD24 TD SCH (17:52)
[2020-08-07 20:00] VITALS: BP_SYST 176
[2020-08-07] MEDS: AMITRIPTYLINE HCL 25 MG TABLET (ELAVIL) PO SCH (20:13)
[2020-08-07] MEDS: SIMVASTATIN 20 MG TABLET PO SCH (20:13)
[2020-08-07] MEDS: ACETAMINOPHEN 325 MG TABLET PO PRN (22:39)
[2020-08-07 23:30] VITALS: BP_SYST 165
[2020-08-08 06:35] LABS: BASOPHILS % (AUTO) 0.1 % (0.0-2.0); EOSINOPHILS % (AUTO) 0.5 % (0.0-4.0); HEMATOCRIT 32.7 % (36-48); HEMOGLOBIN 10.8 g/dL (12.0-16.0); LYMPHOCYTES # (AUTO) 0.7 K/uL (1.0-5.5); LYMPHOCYTES % (AUTO) 8.4 % (20.5-51.5); MEAN CORPUSCULAR HEMOGLOBIN 30 pg (27-31); MEAN CORPUSCULAR HGB CONC 33 % (32-36); MEAN CORPUSCULAR VOLUME 90 fL (79.0-98.0); MONOCYTES # (AUTO) 0.6 K/uL (0.0-1.0); MONOCYTES % (AUTO) 7.7 % (1.7-9.3); NEUTROPHILS % (AUTO) 83.3 % (40.0-70.0); PLATELET COUNT (AUTO) 237 K/uL (130-430); RED BLOOD CELL COUNT(AUTO) 3.64 MIL/uL (4.2-6.2); WHITE BLOOD COUNT (AUTO) 8.4 K/uL (4.8-10.8)
[2020-08-08 07:07] LABS: INR 1.1 (0.8-1.2); PROTHROMBIN TIME 10.8 SECS (9.5-12.5)
[2020-08-08 08:00] VITALS: BP_SYST 142
[2020-08-08] MEDS: SEVELAMER CARBONATE 800 MG TABLET PO SCH ×2 (08:00→11:47)
[2020-08-08 08:07] LABS: ALBUMIN 2.8 g/dL (3.4-4.8); CALCIUM 8.5 mg/dL (8.4-11.0); PHOSPHORUS 5.3 mg/dL (2.7-4.5); POTASSIUM 5.7 mmol/L (3.5-5.1); TOTAL BILIRUBIN 0.7 mg/dL (0.0-1.0)
[2020-08-08] MEDS: PANTOPRAZOLE SODIUM 40 MG/VIAL (PROTONIX) IVP SCH ×2 (08:32→22:44)
[2020-08-08] MEDS: EPOETIN ALFA 3,000 UNITS/ML VIAL SUBCUT SCH (08:32)
[2020-08-08 08:42] LABS: CREATININE 8.4 mg/dL (0.55-1.30)
[2020-08-08] MEDS: METOPROLOL TARTRATE 50 MG TABLET PO SCH ×2 (08:43→22:45)
[2020-08-08] MEDS: THIAMINE HCL 100 MG TABLET PO SCH (08:43)
[2020-08-08] MEDS: lisinopriL 20 MG TABLET PO SCH ×2 (08:43→22:45)
[2020-08-08] MEDS: predniSONE 20 MG TABLET PO SCH (08:43)
[2020-08-08] MEDS: DULoxetine HCL 30 MG CAPSULE.DR (CYMBALTA) PO SCH ×2 (08:43→22:44)
[2020-08-08 12:13] VITALS: BP_SYST 179
[2020-08-08] MEDS ORDERED: NS IRRIG SOLN 1000 ML IR ONE (13:34)
[2020-08-08] MEDS ORDERED: LIDOCAINE 1% 10 MG/ML, 20 ML MDV INJ ONE (13:34)
[2020-08-08] MEDS ORDERED: NS 1000 ML IV.SOLN IV ONE (13:34)
[2020-08-08] MEDS ORDERED: fentaNYL CITRATE/PF 100 MCG/2 ML AMP IVP ONE (13:34)
[2020-08-08] MEDS ORDERED: HEPARIN SODIUM, PORCINE 10,000 UNITS/ 10 ML VIAL MC ONE ×2 (13:34→17:15)
[2020-08-08] MEDS ORDERED: PROPOFOL 200MG/ 20ML VIAL (DIPRIVAN) IV ONE (13:34)
[2020-08-08] MEDS: LORazepam 2 MG/ML VIAL IVP PRN (16:30)
[2020-08-08] MEDS: traMADol HCL HCL 50 MG TABLET (ULTRAM) PO PRN (17:52)
[2020-08-08 20:30] VITALS: BP_SYST 135
[2020-08-08] MEDS: AMITRIPTYLINE HCL 25 MG TABLET (ELAVIL) PO SCH (22:44)
[2020-08-08] MEDS: SIMVASTATIN 20 MG TABLET PO SCH (22:45)
[2020-08-09] VITALS: BP_SYST 136
[2020-08-09 06:59] LABS: BASOPHILS % (AUTO) 0.1 % (0.0-2.0); EOSINOPHILS # (AUTO) 0.1 K/uL (0.0-0.4); EOSINOPHILS % (AUTO) 1.7 % (0.0-4.0); HEMATOCRIT 30.6 % (36-48); HEMOGLOBIN 10.3 g/dL (12.0-16.0); LYMPHOCYTES # (AUTO) 0.7 K/uL (1.0-5.5); LYMPHOCYTES % (AUTO) 9.2 % (20.5-51.5); MEAN CORPUSCULAR HEMOGLOBIN 30 pg (27-31); MEAN CORPUSCULAR HGB CONC 34 % (32-36); MEAN CORPUSCULAR VOLUME 90 fL (79.0-98.0); MONOCYTES # (AUTO) 0.9 K/uL (0.0-1.0); MONOCYTES % (AUTO) 12.1 % (1.7-9.3); NEUTROPHILS % (AUTO) 76.9 % (40.0-70.0); PLATELET COUNT (AUTO) 195 K/uL (130-430); RED BLOOD CELL COUNT(AUTO) 3.41 MIL/uL (4.2-6.2); RED CELL DISTRIBUTION WIDTH 17.1 % (9.0-15.0); WHITE BLOOD COUNT (AUTO) 7.8 K/uL (4.8-10.8)
[2020-08-09 07:21] LABS: CALCIUM 8.2 mg/dL (8.4-11.0); CREATININE 5.96 mg/dL (0.55-1.30); POTASSIUM 4.5 mmol/L (3.5-5.1)
[2020-08-09] MEDS: SEVELAMER CARBONATE 800 MG TABLET PO SCH ×2 (08:00→08:20)
[2020-08-09 08:05] VITALS: BP_SYST 184
[2020-08-09] MEDS: METOPROLOL TARTRATE 50 MG TABLET PO SCH ×2 (08:21→20:11)
[2020-08-09] MEDS: PANTOPRAZOLE SODIUM 40 MG/VIAL (PROTONIX) IVP SCH ×2 (08:21→20:13)
[2020-08-09] MEDS: THIAMINE HCL 100 MG TABLET PO SCH (08:21)
[2020-08-09] MEDS: predniSONE 20 MG TABLET PO SCH (08:21)
[2020-08-09] MEDS: DULoxetine HCL 30 MG CAPSULE.DR (CYMBALTA) PO SCH ×2 (08:21→20:11)
[2020-08-09] MEDS: lisinopriL 20 MG TABLET PO SCH ×2 (08:22→20:11)
[2020-08-09] MEDS ORDERED: CLOPIDOGREL BISULFATE 75 MG TABLET PO ONE (09:30)
[2020-08-09] MEDS: traMADol HCL HCL 50 MG TABLET (ULTRAM) PO PRN ×2 (10:23→20:18)
[2020-08-09 12:06] VITALS: BP_SYST 168
[2020-08-09] MEDS ORDERED: CLOPIDOGREL BISULFATE 75 MG TABLET ONE (12:20)
[2020-08-09] MEDS: NICOTINE 7 MG/24 HR PATCH.TD24 TD SCH (12:23)
[2020-08-09 16:20] VITALS: BP_SYST 115
[2020-08-09 20:00] VITALS: BP_SYST 173
[2020-08-09] MEDS: AMITRIPTYLINE HCL 25 MG TABLET (ELAVIL) PO SCH (20:11)
[2020-08-09] MEDS: SIMVASTATIN 20 MG TABLET PO SCH (20:11)
[2020-08-10] VITALS (7 sets, daily range): BP systolic 122–172
[2020-08-10] MEDS: ACETAMINOPHEN 325 MG TABLET PO PRN (00:11)
[2020-08-10] MEDS: PANTOPRAZOLE SODIUM 40 MG/VIAL (PROTONIX) IVP SCH ×2 (08:11→21:17)
[2020-08-10] MEDS: THIAMINE HCL 100 MG TABLET PO SCH (08:11)
[2020-08-10] MEDS: CLOPIDOGREL BISULFATE 75 MG TABLET PO SCH (08:12)
[2020-08-10] MEDS: SEVELAMER CARBONATE 800 MG TABLET PO SCH ×2 (08:12→17:17)
[2020-08-10] MEDS: DULoxetine HCL 30 MG CAPSULE.DR (CYMBALTA) PO SCH ×2 (08:13→21:17)
[2020-08-10] MEDS: lisinopriL 20 MG TABLET PO SCH ×2 (08:13→21:18)
[2020-08-10] MEDS: METOPROLOL TARTRATE 50 MG TABLET PO SCH ×2 (08:13→21:19)
[2020-08-10] MEDS: predniSONE 20 MG TABLET PO SCH (08:15)
[2020-08-10] MEDS ORDERED: ASPIRIN 81 MG TAB.CHEW PO SCH (09:00)
[2020-08-10] MEDS ORDERED: BENZOCAINE/MENTHOL 1 EACH LOZENGE MM PRN (11:45)
[2020-08-10] MEDS ORDERED: ALTEPLASE 2 MG VIAL MC ONE (12:45)
[2020-08-10] MEDS: EPOETIN ALFA 3,000 UNITS/ML VIAL SUBCUT SCH (14:18)
[2020-08-10] MEDS: NICOTINE 7 MG/24 HR PATCH.TD24 TD SCH (17:03)
[2020-08-10] MEDS ORDERED: Nicotine TD (18:26)
[2020-08-10] MEDS ORDERED: PRO40 PO (18:26)
[2020-08-10] MEDS ORDERED: PRED10TA PO (18:26)
[2020-08-10] MEDS ORDERED: SEVE800T8 PO (18:29)
[2020-08-10] MEDS: AMITRIPTYLINE HCL 25 MG TABLET (ELAVIL) PO SCH (21:18)
[2020-08-10] MEDS: SIMVASTATIN 20 MG TABLET PO SCH (21:18)
[2020-08-10] MEDS: traMADol HCL HCL 50 MG TABLET (ULTRAM) PO PRN (21:18)
[2020-08-11] VITALS: BP_SYST 142
[2020-08-11 07:58] VITALS: BP_SYST 176
[2020-08-11] MEDS: THIAMINE HCL 100 MG TABLET PO SCH (09:04)
[2020-08-11] MEDS: predniSONE 20 MG TABLET PO SCH (09:04)
[2020-08-11] MEDS: SEVELAMER CARBONATE 800 MG TABLET PO SCH ×2 (09:05→13:41)
[2020-08-11] MEDS: CLOPIDOGREL BISULFATE 75 MG TABLET PO SCH (09:05)
[2020-08-11] MEDS: DULoxetine HCL 30 MG CAPSULE.DR (CYMBALTA) PO SCH (09:05)
[2020-08-11] MEDS: METOPROLOL TARTRATE 50 MG TABLET PO SCH (09:05)
[2020-08-11] MEDS: lisinopriL 20 MG TABLET PO SCH (09:06)
[2020-08-11] MEDS: PANTOPRAZOLE SODIUM 40 MG/VIAL (PROTONIX) IVP SCH (09:06)
[2020-08-11 12:00] VITALS: BP_SYST 152
[2020-08-11] MEDS: traMADol HCL HCL 50 MG TABLET (ULTRAM) PO PRN (13:42)
[2020-08-11 14:02] VITALS: BP_SYST 152
[2020-08-11 16:00] VITALS: BP_SYST 155
== END 2020-08-11 16:00 | disposition home health service (06) | DRG 871 ==
LOC: SED 12:49 → STU 15:58 → SIC 07-27 05:35 → STU 07-28 05:32 → SMU 08-10 17:35
PROVIDERS: ADMIT Internal Medicine; ATTEND Internal Medicine
PROC: 5A1D70Z Performance of Urinary Filtration, Intermittent, Less than 6 Hours Per Day (ICD-10-PCS; 2020-07-26)
PROC: 5A1D70Z Performance of Urinary Filtration, Intermittent, Less than 6 Hours Per Day (ICD-10-PCS; 2020-07-27)
PROC: 5A09357 Assistance with Respiratory Ventilation, Less than 24 Consecutive Hours, Continuous Positive Airway Pressure (ICD-10-PCS; 2020-07-27)
PROC: 30233N1 Transfusion of Nonautologous Red Blood Cells into Peripheral Vein, Percutaneous Approach (ICD-10-PCS; 2020-07-27)
PROC: 02HV33Z Insertion of Infusion Device into Superior Vena Cava, Percutaneous Approach (ICD-10-PCS; 2020-07-28)
PROC: B548ZZA Ultrasonography of Superior Vena Cava, Guidance (ICD-10-PCS; 2020-07-28)
PROC: 5A09357 Assistance with Respiratory Ventilation, Less than 24 Consecutive Hours, Continuous Positive Airway Pressure (ICD-10-PCS; 2020-07-28)
PROC: 5A0935A Assistance with Respiratory Ventilation, Less than 24 Consecutive Hours, High Flow/Velocity Cannula (ICD-10-PCS; 2020-07-28)
PROC: 5A1D70Z Performance of Urinary Filtration, Intermittent, Less than 6 Hours Per Day (ICD-10-PCS; 2020-07-29)
PROC: 5A1D70Z Performance of Urinary Filtration, Intermittent, Less than 6 Hours Per Day (ICD-10-PCS; 2020-07-31)
PROC: 5A1D70Z Performance of Urinary Filtration, Intermittent, Less than 6 Hours Per Day (ICD-10-PCS; 2020-08-02)
PROC: 5A1D70Z Performance of Urinary Filtration, Intermittent, Less than 6 Hours Per Day (ICD-10-PCS; 2020-08-03)
PROC: 5A1D70Z Performance of Urinary Filtration, Intermittent, Less than 6 Hours Per Day (ICD-10-PCS; 2020-08-04)
PROC: 5A1D70Z Performance of Urinary Filtration, Intermittent, Less than 6 Hours Per Day (ICD-10-PCS; 2020-08-06)
PROC: 02HV33Z Insertion of Infusion Device into Superior Vena Cava, Percutaneous Approach (ICD-10-PCS; 2020-08-08)
PROC: 0JH63XZ Insertion of Tunneled Vascular Access Device into Chest Subcutaneous Tissue and Fascia, Percutaneous Approach (ICD-10-PCS; 2020-08-08)
PROC: B5181ZA Fluoroscopy of Superior Vena Cava using Low Osmolar Contrast, Guidance (ICD-10-PCS; 2020-08-08)
PROC: 5A1D70Z Performance of Urinary Filtration, Intermittent, Less than 6 Hours Per Day (ICD-10-PCS; 2020-08-08)
PROC: 5A1D70Z Performance of Urinary Filtration, Intermittent, Less than 6 Hours Per Day (ICD-10-PCS; 2020-08-08)
PROC: 02PAX3Z Removal of Infusion Device from Heart, External Approach (ICD-10-PCS; principal; 2020-08-08 12:45)
PROC: 5A1D70Z Performance of Urinary Filtration, Intermittent, Less than 6 Hours Per Day (ICD-10-PCS; 2020-08-10)
DX: A41.9 Sepsis, unspecified organism (principal); J15.9 Unspecified bacterial pneumonia; N18.6 End stage renal disease; J96.01 Acute respiratory failure with hypoxia; I21.A1 Myocardial infarction type 2; I50.43 Acute on chronic combined systolic (congestive) and diastolic (congestive) heart failure; D84.9 Immunodeficiency, unspecified; E87.3 Alkalosis; J44.1 Chronic obstructive pulmonary disease with (acute) exacerbation; J44.0 Chronic obstructive pulmonary disease with (acute) lower respiratory infection; I13.2 Hypertensive heart and chronic kidney disease with heart failure and with stage 5 chronic kidney disease, or end stage renal disease; B02.9 Zoster without complications; E66.01 Morbid (severe) obesity due to excess calories; D63.1 Anemia in chronic kidney disease; E78.5 Hyperlipidemia, unspecified; F17.200 Nicotine dependence, unspecified, uncomplicated; J84.10 Pulmonary fibrosis, unspecified; F41.9 Anxiety disorder, unspecified; I25.10 Atherosclerotic heart disease of native coronary artery without angina pectoris; Y95 Nosocomial condition; F32.9 Major depressive disorder, single episode, unspecified; Z20.828 Contact with and (suspected) exposure to other viral communicable diseases; Z79.02 Long term (current) use of antithrombotics/antiplatelets; Z79.82 Long term (current) use of aspirin; Z86.19 Personal history of other infectious and parasitic diseases; I25.2 Old myocardial infarction; Z86.73 Personal history of transient ischemic attack (TIA), and cerebral infarction without residual deficits; Z91.19 Patient's noncompliance with other medical treatment and regimen; Z90.710 Acquired absence of both cervix and uterus; Z95.5 Presence of coronary angioplasty implant and graft; Z99.2 Dependence on renal dialysis; Z71.6 Tobacco abuse counseling; Z68.25 Body mass index [BMI] 25.0-25.9, adult; Z88.8 Allergy status to other drugs, medicaments and biological substances; Z79.51 Long term (current) use of inhaled steroids; Z91.041 Radiographic dye allergy status
CPT/HCPCS: 36415; 36600; 71045; 71250-TC; 76000; 76376; 80048; 80053; 80061; 82728; 82803-TC; 83540-TC; 83550-TC; 83880; 84100-TC; 84443-TC; 84484; 85025; 85610-TC; 85730-TC; 86886; 86900; 86901; 86920; 87081; 90935; 90937; 93005; 93970; 94640; 94660; 94760; 96374; 96375; 97110-GP; 97112-GP; 97116-GP; 97530-GP; 99291; C1750; C9113; G0378; J0692; J0885; J1100; J1450; J1644; J1940; J1956; J2001; J2060; J2704; J2997; J3010; J3411; J3490; J7030; J7060; J7512; J7613; J8540; P9021; P9046

== ENCOUNTER 2020-08-16 13:38 | Inpatient (IN) | payer BC, SELFPAY ==
[~2020-08-16] VITALS: Ht 167.6 cm; Wt 61.7 kg
[~2020-08-16 13:38] MED LIST changes: -METO-442 PO; +Nicotine TD; +PRED10TA PO; +PRO40 PO; +SEVE800T8 PO; -SIMV20TA2 PO
[2020-08-16 13:49] VITALS: BP_SYST 137
--- NOTE | 2020-08-16 14:00 | NUR ---
Placed in room 2. Placed on compliance monitor, blood pressure machine and pulse oximeter. To gown for exam. Side rails up. Report given to EDDIE [facility].
--- NOTE | 2020-08-16 14:10 | NUR ---
PT CAME IN FROM HOME AFTER BEING REFERRED BY KERLINE FOR HER DIALYSIS SHUNT TO BE UNCLOGGED. STATES SHE WAS AT THE DIALYSIS CENTER YESTERDAY AND WAS UNABLE TO HAVE TX DUE TO CLOGGED PORT. STATES THE CENTER ATTEMPTED TO UNPLUG IT BUT WAS UNSUCCESSFUL. PT ALSO STATES SHE IS SOB AND HAS BEEN ON 1.5L OF O2 TODAY AT HOME. PT IS AMBULATORY, AAOX4, V/S STABLE. HX OF COPD, CKD
--- NOTE | 2020-08-16 14:15 | NUR ---
ER DR. ALEMAN AT THE BEDSIDE EVALUATING PT
[2020-08-16 14:49] LABS: CALCIUM 8.9 mg/dL (8.4-11.0)
[2020-08-16 14:52] LABS: BASOPHILS % (AUTO) 0.3 % (0.0-2.0); EOSINOPHILS % (AUTO) 0.2 % (0.0-4.0); HEMATOCRIT 28.4 % (36-48); HEMOGLOBIN 9.6 g/dL (12.0-16.0); LYMPHOCYTES # (AUTO) 0.4 K/uL (1.0-5.5); LYMPHOCYTES % (AUTO) 4.5 % (20.5-51.5); MEAN CORPUSCULAR HEMOGLOBIN 30 pg (27-31); MEAN CORPUSCULAR HGB CONC 34 % (32-36); MEAN CORPUSCULAR VOLUME 88 fL (79.0-98.0); MONOCYTES # (AUTO) 0.4 K/uL (0.0-1.0); MONOCYTES % (AUTO) 4.6 % (1.7-9.3); NEUTROPHILS # (AUTO) 7.6 K/uL (1.8-7.7); NEUTROPHILS % (AUTO) 90.4 % (40.0-70.0); PLATELET COUNT (AUTO) 112 K/uL (130-430); RED BLOOD CELL COUNT(AUTO) 3.24 MIL/uL (4.2-6.2); RED CELL DISTRIBUTION WIDTH 17.5 % (9.0-15.0); WHITE BLOOD COUNT (AUTO) 8.4 K/uL (4.8-10.8)
[2020-08-16 14:55] LABS: TOTAL BILIRUBIN 1.4 mg/dL (0.0-1.0)
[2020-08-16 14:56] LABS: CREATININE 9.11 mg/dL (0.55-1.30)
[2020-08-16] MEDS ORDERED: ASPIRIN 81 MG TAB.CHEW PO ONE (15:30)
--- NOTE | 2020-08-16 15:35 | NUR ---
ADMIT ORDERS RECEIVED FROM DR. ABBASI
--- NOTE | 2020-08-16 15:45 | NUR ---
CALL FOR TELE BED, PER CHARGE NURSE NO BEDS AVAILABLE
--- NOTE | 2020-08-16 16:00 | NUR ---
# 20 gauge angiocath placed to RFA. Use of asceptic technique. Opsite placed over site. Blood return noted. Flushed with 10 cc of normal saline. No evidence of infiltration noted. Patient tolerated well.
--- NOTE | 2020-08-16 16:16 | NUR ---
COVID SWAB DONE AND SENT TO LAB
--- NOTE | 2020-08-16 18:15 | NUR ---
Patient resting quietly. No acute distress noted. Vital signs within normal range.
--- NOTE | 2020-08-16 19:19 | NUR ---
REPORT GIVEN TO EDDIE MARQUEZ FOR CONTINUING CARE
--- NOTE | 2020-08-16 19:19 | NUR ---
Assumed care of patient at change of shift. Introduced self to patient, positioned for comfort and safety w/ bed to low position sr up, continue to monitor level of comfort and safety. Patient dialysis shunt noted to left chest (possible clotted). Currently on 3l n/c w/ pox noted at 93%. Paitent lung sounds cta bilaterally but diminished. No labored breathing noted. patient able to speak full sentences.
[2020-08-16] MEDS ORDERED: BACLOFEN 10 MG TABLET ONE (22:13)
--- NOTE | 2020-08-16 22:17 | NUR ---
Patient c/o bilateral leg cramping. Contacted MD Victor, who ordered patient to receive 10mg of Baclofen bid po. Will medicate patient as ordered, meanwhile positioned patient for comfort and safety w/ bed to low position sr up. Continue to monitor.
--- NOTE | 2020-08-16 22:48 | NUR ---
Critical trop 0.078 provided by Lab.
[2020-08-16] MEDS: BACLOFEN 10 MG TABLET PO SCH (22:53)
--- NOTE | 2020-08-16 22:53 | NUR ---
patient medicated as ordered w/ Baclofen 10mg po. Will observe for any adverse reaction. bed to low position sr up. continue to monitor.
--- NOTE | 2020-08-16 23:44 | NUR ---
Patient reports pain 3/10 minutes after administration of . No adverse reactions noted. Will continue to monitor.
--- NOTE | 2020-08-17 01:45 | NUR ---
Patient resting quietly. No acute distress noted. Vital signs within normal range.
--- NOTE | 2020-08-17 01:59 | NUR ---
Patient resting comfortably in bed. No acute distress, will continue to monitor. Rise and fall of chest is symmetrical
[2020-08-17] MEDS ORDERED: ONDANSETRON HCL 4 MG/2 ML VIAL ONE (02:35)
[2020-08-17] MEDS ORDERED: ONDANSETRON HCL 4 MG/2 ML VIAL IVP ONE (02:45)
--- NOTE | 2020-08-17 03:22 | NUR ---
BSC placed at bedside for which patient was unable to void or have a bm. Replaced in [facility] but patient requested to sit upright. continue to monitor.
--- NOTE | 2020-08-17 05:19 | NUR ---
Patient resting comfortably at this time in no acute distress. bed to low position sr up, continue to monitor.
[2020-08-17 07:45] LABS: BASOPHILS # (AUTO) 0.1 K/uL (0.0-0.2); BASOPHILS % (AUTO) 0.7 % (0.0-2.0); EOSINOPHILS % (AUTO) 0.3 % (0.0-4.0); HEMATOCRIT 28.2 % (36-48); HEMOGLOBIN 9.2 g/dL (12.0-16.0); LYMPHOCYTES # (AUTO) 1.1 K/uL (1.0-5.5); LYMPHOCYTES % (AUTO) 13.2 % (20.5-51.5); MEAN CORPUSCULAR HEMOGLOBIN 29 pg (27-31); MEAN CORPUSCULAR HGB CONC 33 % (32-36); MEAN CORPUSCULAR VOLUME 89 fL (79.0-98.0); MONOCYTES # (AUTO) 0.6 K/uL (0.0-1.0); MONOCYTES % (AUTO) 8.1 % (1.7-9.3); NEUTROPHILS # (AUTO) 6.2 K/uL (1.8-7.7); NEUTROPHILS % (AUTO) 77.7 % (40.0-70.0); PLATELET COUNT (AUTO) 114 K/uL (130-430); RED BLOOD CELL COUNT(AUTO) 3.17 MIL/uL (4.2-6.2); RED CELL DISTRIBUTION WIDTH 17.7 % (9.0-15.0)
[2020-08-17 07:56] LABS: ALBUMIN 2.6 g/dL (3.4-4.8); CALCIUM 8.3 mg/dL (8.4-11.0); POTASSIUM 5.1 mmol/L (3.5-5.1); TOTAL BILIRUBIN 0.9 mg/dL (0.0-1.0)
[2020-08-17 08:19] LABS: CREATININE 10.29 mg/dL (0.55-1.30)
--- NOTE | 2020-08-17 10:58 | NUR ---
Patient will be admitted to care of dr carlson. Admitted to tele unit. Will go to room 100a. Belongings list completed. Complete and up to date summary report printed. SBAR report to be given at bedside with opportunity for questions. tTransfer to telw via ACLS protocol. Licensed nurse present. IV present no signs or symptoms of infiltration.
--- NOTE | 2020-08-17 11:04 | NUR ---
ADMISSION NOTE Received patient from ER via hilda, received report from BOO MORGAN. Patient admitted with diagnosis of RULE OUT OK, CHF, ESRD. Patient oriented to hospital routine, call light, toileting and safety-patient verbalized understanding.
--- NOTE | 2020-08-17 11:05 | NUR ---
CONSULTATION PAGED REASON FOR CONSULTATION:R/O SD AND CHF WAS CONSULT CALLED?Y PERSON WHO WAS NOTIFIED:DAVID CONSULTING PHYSICIAN:HERIBERTO FAUST ENGINEERING PSYCHOLOGIST SPECIALTY:CARDIO ENGINEERING PSYCHOLOGIST PHONE NUMBER:[phone] ORDERING PHYSICIAN:AALIYAH ALCAZAR
[2020-08-17 11:11] VITALS: BP_SYST 97
[2020-08-17] MEDS: BACLOFEN 10 MG TABLET PO SCH ×2 (11:35→21:39)
--- NOTE | 2020-08-17 11:48 | NUR ---
Paged Dr. Victor for orders, will follow up as needed. Addendum: 08/17/20 at 1251 by Mike Bermudez RN Second page to Dr. Victor at this time for orders.
[2020-08-17 12:53] VITALS: BP_SYST 111
--- NOTE | 2020-08-17 12:53 | NUR ---
RN rounds patient resting in bed, eyes closed, breathing is even and unlabored, no signs of distress, easy to wake, reduced oxygen from 3L to 2L at this time, oxygen saturation is 97% at this time, patient denies pain, informed patient that MD was paged for diet orders, patient verbalized understanding, bed in lowest position, three side rails up, bed alarm on, call light within reach, fall and aspiration precautions in place.
--- NOTE | 2020-08-17 14:58 | NUR ---
RN rounds patient resting in bed, on 2L via nasal cannula, oxygen saturation is 97% at this time, confirmed with patient that her Biostatistician is Dr. Monroe, informed patient that Dr. Victor was paged but no reply yet, patient verbalized understanding, no other needs at this time, bed in lowest position, three side rails up, bed alarm on, call light within reach, fall and aspiration precautions in place.
--- NOTE | 2020-08-17 15:44 | NUR ---
CONSULTATION PAGED/CALLED Reason for Consultation: [] ESRD Person Who was Notified: [] DR BURGESS Consulting Physician: [] DR BURGESS R Flake Miller Helper Specialty: [] NEPHROLOGY Ordering Physician: [] DR ABBASI
--- NOTE | 2020-08-17 15:54 | NUR ---
Patient signed consent for hemodialysis, placed in patient chart.
[2020-08-17 16:26] VITALS: BP_SYST 132
--- NOTE | 2020-08-17 16:27 | NUR ---
RN rounds patient resting in bed, drowsy, but easy to wake, vital signs taken (see VS flowsheet), hemodialysis nurse at bedside at this time, received orders from Dr. Monroe for [facility], will follow up, continuing to monitor patient, bed in lowest position, three side rails up, bed alarm on, call light within reach, fall precautions in place.
[2020-08-17] MEDS ORDERED: ALTEPLASE 2 MG VIAL MC ONE (16:30)
--- NOTE | 2020-08-17 16:37 | NUR ---
Cath Nick unable to scan medication, confirmed correct patient and dosage. Hemodialysis nurse to instill into hemodialysis catheter, will follow up as needed.
[2020-08-17] MEDS ORDERED: EPOETIN ALFA 10,000 UNITS/ML VIAL SUBCUT ONE (17:00)
--- NOTE | 2020-08-17 18:40 | NUR ---
Closing note patient resting in bed, tolerating hemodialysis well at this time, per hemodialysis nurse, hold due Epogen until after hemodialysis, all other needs met for patient, will endorse report to NOC shift nurse, patient bed in lowest position, three side rails up, fall precautions in place.
[2020-08-17 20:00] VITALS: BP_SYST 125
--- NOTE | 2020-08-17 20:00 | NUR ---
AWAKE, ALERT, ORIENTED X4. RIGHT CHEST HEMODIALYSIS PERMACATH DRSG D/I. ON O2 AT 2L/MIN/NC. MITALI. .
[2020-08-17] MEDS: AMITRIPTYLINE HCL 25 MG TABLET (ELAVIL) PO SCH (21:39)
[2020-08-17] MEDS: DULoxetine HCL 30 MG CAPSULE.DR (CYMBALTA) PO SCH (21:39)
--- NOTE | 2020-08-17 22:00 | NUR ---
ASLEEP, BUT AROUSABLE. ABLE TO TAKE PO MEDS WITHOUT PROBLEM.
--- NOTE | 2020-08-18 | NUR ---
SOUNDLY ASLEEP. NO DISTRESS NOTED.
[2020-08-18 00:16] VITALS: BP_SYST 99
--- NOTE | 2020-08-18 02:00 | NUR ---
SLEPT INTERMITTENTLY. MOANS AT TIMES. WHEN ASKED "WHY SHE MOANS?", PT ANSWERS "I DON'T KNOW".
--- NOTE | 2020-08-18 06:00 | NUR ---
SLEPT WELL MOST OF NOC. MOANS. REMAINS IN GUARDED CONDITION.
[2020-08-18 07:23] LABS: PHOSPHORUS 4.9 mg/dL (2.7-4.5); POTASSIUM 4.9 mmol/L (3.5-5.1)
[2020-08-18 07:45] VITALS: BP_SYST 141
--- NOTE | 2020-08-18 07:45 | NUR ---
Opening note patient is a/ox4, complaining of severe mid-back pain/spasm, no PRN available, assessment complete, repositioned patient at this time, IV line is patent and infusing well, will follow up with MD regarding pain medication, bed in lowest position, three side rails up, bed alarm on, call light within reach, fall and aspiration precautions in place.
--- NOTE | 2020-08-18 07:58 | NUR ---
Paged Dr. Victor patient is complaining of severe pain to her mid-back, no PRN medication available for pain. Will follow up as needed.
[2020-08-18] MEDS: SEVELAMER CARBONATE 800 MG TABLET PO SCH ×4 (08:00→17:23)
--- NOTE | 2020-08-18 08:04 | NUR ---
HIGH ALERT NOTE: Called Dr. Victor back at [phone] identified within the medical roster to verify physician authenticity.
[2020-08-18] MEDS ORDERED: MORPHINE 2 MG/ML INJ. SYRINGE IVP PRN (08:15)
[2020-08-18] MEDS ORDERED: NALOXONE HCL 0.4 MG/ML AMP (NARCAN) IVP PRN ×2 (08:15)
[2020-08-18] MEDS: MORPHINE 2 MG/ML INJ. SYRINGE IVP PRN ×2 (08:18→20:27)
[2020-08-18] MEDS: DULoxetine HCL 30 MG CAPSULE.DR (CYMBALTA) PO SCH ×3 (08:20→21:49)
--- NOTE | 2020-08-18 08:20 | NUR ---
Dr. Stephens rounds assessed patient, MD aware that patient is having severe back pain, will follow up with any new orders.
[2020-08-18] MEDS: predniSONE 10 MG TABLET PO SCH (08:21)
[2020-08-18] MEDS: BACLOFEN 10 MG TABLET PO SCH ×3 (08:21→21:49)
[2020-08-18] MEDS: PANTOPRAZOLE SODIUM 40 MG TAB PO SCH (08:31)
--- NOTE | 2020-08-18 08:37 | NUR ---
DC Planning: pt last dc to home with [facility] (f [phone] p [phone]) and [facility] (f [phone] p [phone]) . Will need md order for the HH to resume care .
[2020-08-18 08:47] LABS: CREATININE 7.92 mg/dL (0.55-1.30)
[2020-08-18] MEDS ORDERED: ASPIRIN 81 MG TAB.CHEW PO SCH (09:00)
--- NOTE | 2020-08-18 09:20 | NUR ---
Xray at bedside at this time, patient has pain with movement.
--- NOTE | 2020-08-18 10:14 | NUR ---
RN rounds patient resting in bed, eyes closed, breathing is even and unlabored, no signs of distress, patient is easy to wake, patient is on 4L via nasal cannula oxygen saturation is 99% at this time, patient states pain has improved, continuing to monitor patient, bed in lowest position, three side rails up, bed alarm on, call light within reach, fall and aspiration precautions in place.
--- NOTE | 2020-08-18 10:27 | NUR ---
Nutrition Update Sav Scale 14 noted. Pt admitted for r/o CO, ESRD Diet: renal, cardiac BMI: 24.7 kg/m2 RD to follow per nutrition care standards.
--- NOTE | 2020-08-18 11:17 | NUR ---
Family call patient's son, Ray, called for updates, informed about patient's back pain and answered his questions about plan of care as well.
[2020-08-18 12:05] VITALS: BP_SYST 138
--- NOTE | 2020-08-18 12:36 | NUR ---
RN rounds patient resting in bed, awake, states she still has back pain, moderate now, educated patient on medication uses and potential side effects, she verbalized understanding, IV line is patent and infusing well, continuing to monitor her, bed in lowest position, three side rails up, bed alarm on, call light placed within reach, fall and aspiration precautions in place.
[2020-08-18] MEDS ORDERED: HEPARIN SODIUM,PORCINE 5,000 UNITS/ML VIAL MC ONE (12:45)
--- NOTE | 2020-08-18 12:46 | NUR ---
HIGH ALERT NOTE: Called Dr. Monroe back at [phone] identified within the medical roster to verify physician authenticity.
--- NOTE | 2020-08-18 13:13 | NUR ---
Spoke with Dr. Monroe clarified that the Heparin 10,000 units is for the PermCath ports only not for during hemodialysis, informed hemodialysis nurse of this as well.
--- NOTE | 2020-08-18 13:30 | NUR ---
Hemodialysis starting at this time, patient is still confused, VSS. Yesterday hemodialysis was partially successful, with 2L off.
--- NOTE | 2020-08-18 13:50 | NUR ---
Dr. Monroe rounds assessed patient, informed MD of patient's new confusion and new orders for Dr. Curiel consult for permacath replacement.
--- NOTE | 2020-08-18 15:15 | NUR ---
Dr. Carlin rounds assessed patient and spoke with hemodialysis nurse regarding PermaCath functioning, plans for Permacath replacement on the right chest, patient to be NPO after midnight.
--- NOTE | 2020-08-18 15:59 | NUR ---
Spoke with patient's son Joanne regarding patient's use of Plavix, Dr. Carlin inquiring if patient has been taking it because if she has been taking it then patient can't have PermCath replacement tomorrow, patient's son stated that he is not sure and that the patient has probably been taking the medication as ordered.
--- NOTE | 2020-08-18 16:02 | NUR ---
Spoke with Dr. Carlin informed him of what patient's son said about not being sure if patient has taking Plavix in the last few days - Dr. Carlin will postpone PermaCath replacement for now.
[2020-08-18 16:05] VITALS: BP_SYST 124
--- NOTE | 2020-08-18 16:34 | NUR ---
RN rounds/Hemodialysis complete 1.9L off at this time, HD nurse changed dressing to PermaCath side, dressing is clean, dry and intact. Patient resting in bed, awake, moaning on and off, offered patient a snack and water, she refuses at this time, continuing to monitor, bed in lowest position, three side rails up, bed alarm on, call light placed within reach, fall and aspiration precautions in place.
--- NOTE | 2020-08-18 18:23 | NUR ---
Closing note patient resting in bed, eyes closed, breathing is even and unlabored, no signs of distress, all needs met, will endorse report to NOC shift nurse, bed in lowest position, three side rails up, bed alarm on, call light within reach, fall and aspiration precautions in place.
[2020-08-18 19:45] VITALS: BP_SYST 114
--- NOTE | 2020-08-18 19:50 | NUR ---
HIGH ALERT NOTE / DR. BURGESS ROUNDS DR. BURGESS AT BEDSIDE MAKING ROUNDS AT THIS TIME, HE HAS GIVEN NEW ORDERS INCLUDING HIGH ALERT MEDICATION:ATIVAN. NEW ORDERS READ BACK VERIFIED, AND ENTERED.
--- NOTE | 2020-08-18 20:00 | NUR ---
INITIAL NOTE AT INITIAL ASSESSMENT, PATIENT IS RESTING IN BED, STABLE, NO SIGNS OF RESPIRATORY DISTRESS. PLAN OF CARE FOR THE EVENING IS COMMUNICATED WITH THE PATIENT. PATIENT IS UNABLE TO DEMONSTRATE CORRECT USAGE OF CALL LIGHT AT THIS TIME DUE TO MENTAL STATUS; FREQUENT ROUNDING WILL BE COMPLETED THROUGHOUT THE NIGHT TO MEET ALL PATIENT NEEDS.BED IS LOCKED, ALARMED, AND AT THE LOWEST LEVEL. FALL SAFETY EDUCATION PROVIDED. FALL, SAFETY, ASPIRATION, AND RESPIRATORY PRECAUTIONS WILL BE TAKEN THROUGHOUT THE SHIFT.
--- NOTE | 2020-08-18 20:20 | NUR ---
PAIN NOTE PATIENT IS GRIMACING, AND CONTINUOUSLY LOUDLY GROANING "ALL BAD! ALL BAD!" PRN MEDICATION IS GIVEN AT THIS TIME FOR PATIENTS PAIN ASSESSED PER FLACC SCALE. WILL REASSESS IF PRN MEDICATION GIVEN WAS EFFECTIVE. CALL LIGHT PLACED WITHIN REACH. BED IS LOCKED, ALARMED, AND AT THE LOWEST LEVEL.
[2020-08-18] MEDS: AMITRIPTYLINE HCL 25 MG TABLET (ELAVIL) PO SCH ×2 (20:22→21:48)
[2020-08-18] MEDS: ONDANSETRON HCL 4 MG/2 ML VIAL IVP PRN (21:38)
--- NOTE | 2020-08-18 22:00 | NUR ---
MED PASS NOTE UNABLE TO GIVE SCHEDULED PO MEDICATIONS GIVEN AT THIS TIME, DUE TO PATIENT'S MENTAL STATUS AND INCREASED ASPIRATION RISK. CALL LIGHT IS PLACED WITHIN REACH. BED IS LOCKED, ALARMED, AND AT THE LOWEST LEVEL.
[2020-08-19] VITALS: BP_SYST 149
--- NOTE | 2020-08-19 | NUR ---
NOTE PATIENT IS SLEEPING, STABLE, NO SIGNS OF RESPIRATORY DISTRESS. CALL LIGHT IS WITHIN REACH. BED IS LOCKED, ALARMED, AND AT THE LOWEST LEVEL.
--- NOTE | 2020-08-19 02:00 | NUR ---
NOTE PATIENT IS SLEEPING, STABLE, NO SIGNS OF RESPIRATORY DISTRESS. CALL LIGHT IS WITHIN REACH. BED IS LOCKED, ALARMED, AND AT THE LOWEST LEVEL.
[2020-08-19] MEDS: MORPHINE 2 MG/ML INJ. SYRINGE IVP PRN ×2 (02:29→20:35)
[2020-08-19] MEDS: ONDANSETRON HCL 4 MG/2 ML VIAL IVP PRN (02:30)
--- NOTE | 2020-08-19 02:30 | NUR ---
PAIN NOTE PATIENT IS GRIMACING, AND CONTINUOUSLY LOUDLY GROANING "ALL SHIT! ALL SHIT!" PRN MEDICATION IS GIVEN AT THIS TIME FOR PATIENTS PAIN ASSESSED PER FLACC SCALE. WILL REASSESS IF PRN MEDICATION GIVEN WAS EFFECTIVE. CALL LIGHT PLACED WITHIN REACH. BED IS LOCKED, ALARMED, AND AT THE LOWEST LEVEL.
--- NOTE | 2020-08-19 04:00 | NUR ---
HYGIENE CARE NOTE HYGIENE CARE IS PROVIDED AT THIS TIME, FRESH LINENS PROVIDED, AND PATIENT IS REPOSITIONED FOR COMFORT. PATIENT TOLERATED WELL. CALL LIGHT PLACED WITHIN REACH. BED IS LOCKED, ALARMED, AND AT THE LOWEST LEVEL.
--- NOTE | 2020-08-19 06:00 | NUR ---
CLOSING NOTE PATIENT SLEPT WELL THROUGHOUT THE SHIFT, NO SHORTNESS OF BREATH NOTED. AT THIS TIME, PATIENT IS RESTING IN BED, STABLE, NO SIGNS OF RESPIRATORY DISTRESS. CALL LIGHT IS WITHIN REACH. BED IS LOCKED, ALARMED, AND AT THE LOWEST LEVEL. FALL, SAFETY, AND RESPIRATORY PRECAUTIONS HAVE BEEN TAKEN THROUGHOUT THE SHIFT. WILL CONTINUE TO MONITOR UNTIL SHIFT REPORT IS GIVEN AT BEDSIDE TO AM NURSE.
[2020-08-19 07:11] LABS: BASOPHILS % (AUTO) 0.7 % (0.0-2.0); EOSINOPHILS % (AUTO) 0.4 % (0.0-4.0); HEMATOCRIT 29.1 % (36-48); HEMOGLOBIN 9.3 g/dL (12.0-16.0); LYMPHOCYTES % (AUTO) 15.8 % (20.5-51.5); MEAN CORPUSCULAR HEMOGLOBIN 29 pg (27-31); MEAN CORPUSCULAR HGB CONC 32 % (32-36); MEAN CORPUSCULAR VOLUME 90 fL (79.0-98.0); MONOCYTES # (AUTO) 0.7 K/uL (0.0-1.0); MONOCYTES % (AUTO) 10.8 % (1.7-9.3); NEUTROPHILS # (AUTO) 4.7 K/uL (1.8-7.7); NEUTROPHILS % (AUTO) 72.3 % (40.0-70.0); PLATELET COUNT (AUTO) 116 K/uL (130-430); RED BLOOD CELL COUNT(AUTO) 3.24 MIL/uL (4.2-6.2); RED CELL DISTRIBUTION WIDTH 17.2 % (9.0-15.0); WHITE BLOOD COUNT (AUTO) 6.5 K/uL (4.8-10.8)
[2020-08-19 08:00] VITALS: BP_SYST 135
[2020-08-19] MEDS ORDERED: LORazepam 2 MG/ML VIAL IVP SCH (08:00)
[2020-08-19 08:14] LABS: CALCIUM 8.3 mg/dL (8.4-11.0); CREATININE 6.55 mg/dL (0.55-1.30); POTASSIUM 4.4 mmol/L (3.5-5.1)
--- NOTE | 2020-08-19 08:30 | NUR ---
Opening Notes Patient is awake, alert and oriented x1. Patient is withdrawn, flat affect. No agitation noted at this time. No resp distress noted. Breathing is even and unlabored. Pt remains on continuous oxygen @ 5 LPM via NC, tolerating well. IV site on left FA, 20 gauge intact at this time. Left upper permacath in place, dressing clean and dry. Large bruise noted around permacath area. Pt remains on bedrest at this time. Breakfast is at bedside. All needs met. Safety and fall precautions in place. Bed in lowest position, alarm on, locked. Will continue to monitor.
[2020-08-19] MEDS: predniSONE 10 MG TABLET PO SCH (09:21)
[2020-08-19] MEDS: SEVELAMER CARBONATE 800 MG TABLET PO SCH ×3 (09:21→18:00)
[2020-08-19] MEDS ORDERED: PANTOPRAZOLE SODIUM 40 MG TAB ONE (09:26)
[2020-08-19] MEDS: PANTOPRAZOLE SODIUM 40 MG TAB PO SCH (09:27)
--- NOTE | 2020-08-19 10:47 | NUR ---
Notes/Ativan 2 mg Patient is laying in bed, resting. As ordered by MD, administered Ativan 2 mg IVP prior to CT scan. Administered Ativan, tolerated well. Pt is sleeping in bed at this time. Will continue to monitor.
[2020-08-19 12:06] VITALS: BP_SYST 155
--- NOTE | 2020-08-19 12:45 | NUR ---
Patient transferred to RADIOLOGY FOR CT
--- NOTE | 2020-08-19 13:36 | NUR ---
Discharge Barriers: pending : CT Head dt increased confusion /agitation. New HD cath placement per dr. Carlin. [facility] dt difficulty of swallowing med per RN Belia.
--- NOTE | 2020-08-19 13:49 | NUR ---
GAVE DR BURGESS'S ORDER FOR HD TOMORROW TO NURSING PSYCHOLOGY TEACHER JAKE.
--- NOTE | 2020-08-19 14:48 | NUR ---
S.T. SWALLOW EVAL ATTEMPTED. SWALLOW EVAL ATTEMPTED. PT UNABLE TO SUSTAIN ALERTNESS - HIGHLY LIKELY D/T MEDICATION GIVEN. MULTIPLE ATTEMPTS GIVEN. UNABLE TO COMPLETE EVAL. S.T. WILL FOLLOW. NURSE ATA AWARE.
--- NOTE | 2020-08-19 14:52 | NUR ---
Notes Patient is sleeping at this time. No resp distress noted. Breathing is even and unlabored. Pt remains on 5 L NC, tolerating well. Will continue to monitor.
[2020-08-19 16:02] VITALS: BP_SYST 125
[2020-08-19] MEDS: EPOETIN ALFA 10,000 UNITS/ML VIAL SUBCUT SCH (16:24)
--- NOTE | 2020-08-19 18:09 | NUR ---
Closing Notes Patient is asleep at this time. Pt has been lethargic throughout shift. Alert and oriented x1. No resp distress noted. Breathing is even and unlabored. Pt remains on continuous oxygen @ 5 LPM via NC. Pt remains on bedrest at this time. IV site on right FA, 20 gauge intact at this time. Dressing clean and dry, flushing well. Left upper permacath in place, dressing clean and dry. Bruising noted around permacath. Repositioned in bed. Nurse s/w son, Ray, who would like to s/w patient. Attempted to wake up patient but pt continues to be lethargic. All needs met. Safety and fall precautions in place. Bed in lowest position, alarm on, locked. Will continue to monitor.
[2020-08-19 19:45] VITALS: BP_SYST 135
--- NOTE | 2020-08-19 19:45 | NUR ---
INITIAL NOTE AT INITIAL ASSESSMENT, PATIENT IS RESTING IN BED, STABLE, NO SIGNS OF RESPIRATORY DISTRESS. PATIENT VERBALIZES SHOWS NO PAIN PER FLACC SCALE USED. PLAN OF CARE FOR THE EVENING IS COMMUNICATED WITH THE PATIENT. PATIENT IS UNABLE TO DEMONSTRATE CORRECT USAGE OF CALL LIGHT AT THIS TIME DUE TO COGNITIVE IMPAIRMENT; FREQUENT ROUNDING WILL BE COMPLETED THROUGHOUT THE NIGHT TO MEET ALL PATIENT NEEDS. BED IS LOCKED, ALARMED, AND AT THE LOWEST LEVEL. FALL SAFETY EDUCATION PROVIDED. FALL, SAFETY, AND RESPIRATORY PRECAUTIONS WILL BE TAKEN THROUGHOUT THE SHIFT.
--- NOTE | 2020-08-19 20:30 | NUR ---
PAIN NOTE PRN MEDICATION FOR PAIN GIVEN AT THIS TIME FOR PATIENTS PAIN ASSESSED PER FLACC SCALE. PATIENT IS REPOSITIONED FOR COMFORT. WILL REASSESS IF PRN MEDICATION GIVEN WAS EFFECTIVE. CALL LIGHT PLACED WITHIN REACH. BED IS LOCKED, ALARMED, AND AT THE LOWEST LEVEL.
[2020-08-19] MEDS: DULoxetine HCL 30 MG CAPSULE.DR (CYMBALTA) PO SCH (20:37)
[2020-08-19] MEDS: BACLOFEN 10 MG TABLET PO SCH (20:37)
--- NOTE | 2020-08-19 22:30 | NUR ---
NOTE PATIENT IS SLEEPING, STABLE, NO SIGNS OF RESPIRATORY DISTRESS. CALL LIGHT IS WITHIN REACH. BED IS LOCKED, ALARMED, AND AT THE LOWEST LEVEL.
[2020-08-20 00:15] VITALS: BP_SYST 149
--- NOTE | 2020-08-20 00:30 | NUR ---
NOTE PATIENT IS SLEEPING, STABLE, NO SIGNS OF RESPIRATORY DISTRESS. CALL LIGHT IS WITHIN REACH. BED IS LOCKED, ALARMED, AND AT THE LOWEST LEVEL.
[2020-08-20] MEDS: MORPHINE 2 MG/ML INJ. SYRINGE IVP PRN (01:58)
--- NOTE | 2020-08-20 06:30 | NUR ---
CLOSING NOTE PATIENT WAS A LITTLE MORE ALERT TONIGHT, SHE WAS ABLE TO TRACK NURSE WITH HER EYES, AND ANSWER SOME SIMPLE YES AND NO QUESTIONS. NO SHORTNESS OF BREATH NOTED. AT THIS TIME, PATIENT IS RESTING IN BED, STABLE, NO SIGNS OF RESPIRATORY DISTRESS. CALL LIGHT IS WITHIN REACH. BED IS LOCKED, ALARMED, AND AT THE LOWEST LEVEL. FALL, SAFETY, AND RESPIRATORY PRECAUTIONS HAVE BEEN TAKEN THROUGHOUT THE SHIFT. WILL CONTINUE TO MONITOR UNTIL SHIFT REPORT IS GIVEN AT BEDSIDE TO AM NURSE.
--- NOTE | 2020-08-20 07:36 | NUR ---
Initial note: Patient is awake, alert,oriented x1, confused. She is bedrest , on Oxygen 2 L/M via NC, no SOB. Will continue monitor. Addendum: 08/20/20 at 1854 by Bibiana Gonzalez RN PUT HER ON AIR MATTRESS.
[2020-08-20 08:00] VITALS: BP_SYST 132
--- NOTE | 2020-08-20 09:00 | NUR ---
BREAKFAST: PATIENT HAS RENAL DIET SERVED. SHE IS 1:1 FEEDER. SHE ATE 10% , NO SIGN OF ASPIRATION.
[2020-08-20] MEDS: predniSONE 10 MG TABLET PO SCH (09:17)
[2020-08-20] MEDS: DULoxetine HCL 30 MG CAPSULE.DR (CYMBALTA) PO SCH ×2 (09:17→20:15)
[2020-08-20] MEDS: SEVELAMER CARBONATE 800 MG TABLET PO SCH ×2 (09:17→11:47)
[2020-08-20] MEDS: BACLOFEN 10 MG TABLET PO SCH ×2 (09:18→20:15)
[2020-08-20] MEDS ORDERED: PANTOPRAZOLE SODIUM 40 MG TAB ONE (09:57)
[2020-08-20] MEDS: PANTOPRAZOLE SODIUM 40 MG TAB PO SCH (09:59)
--- NOTE | 2020-08-20 10:00 | NUR ---
HIGH ALERT NOTE: Called back at [phone] identified within the medical roster to verify physician authenticity.
[2020-08-20 11:45] VITALS: BP_SYST 104
[2020-08-20] MEDS ORDERED: HEPARIN SODIUM,PORCINE 5,000 UNITS/ML VIAL IVP ONE (11:45)
--- NOTE | 2020-08-20 13:07 | NUR ---
REFUSED LUNCH: PATIENT IS SLEEPING, STILL DURING HD. SHE REFUSED TO EAT LUNCH AT THIS TIME.
--- NOTE | 2020-08-20 14:00 | NUR ---
NEPHRO ROUND: MAKES ROUND, AWARE THAT PATIENT HAS HD WITH 2 LITERS OUT PUT AND STABLE CONDITION.
--- NOTE | 2020-08-20 14:49 | NUR ---
DIET CHANGED: PATIENT STATES CAN NOT CHEW. TRY TO FEED HER, BUT SHE ATE ONLY PUDDING. CHANGE DIET TO RENAL WITH PUREED DIET.
[2020-08-20 16:00] VITALS: BP_SYST 138
--- NOTE | 2020-08-20 16:42 | NUR ---
RN ROUND: PATIENT IS SLEEPING COMFORTABLE, NO SIGN OF DISTRESS.
--- NOTE | 2020-08-20 17:00 | NUR ---
ROUND: DR. ABBASI MAKES ROUND AND HAS LAB ORDERED FOR TOMORROW.
--- NOTE | 2020-08-20 17:41 | NUR ---
SURGEON ROUND: DR. WILSON HAS MADE ROUND AND HAS ORDERED FOR CONSENT TO READ. WILL F/U SURGERY SCHEDULE WITH DIRECTOR HUMAN SERVICES.
--- NOTE | 2020-08-20 18:53 | NUR ---
CLOSING NOTE: PATIENT IS STABLE, ON OXYGEN 6 L/M VIA NC AFTER HD WITH 2 LITERS OUT PUT. SHE TOLERATES PUREED DIET FOR DINNER WELL, NO SIGN OF ASPIRATION.
--- NOTE | 2020-08-20 19:15 | NUR ---
CHANGE OF SHIFT; endorsed by day shift. had hemodialysis today. no resp. distress. call light at bedside. on fall risk precaution, on bed rest.
[2020-08-20 20:15] VITALS: BP_SYST 163
[2020-08-20] MEDS: AMITRIPTYLINE HCL 25 MG TABLET (ELAVIL) PO SCH (20:15)
--- NOTE | 2020-08-20 20:15 | NUR ---
NOTES: pt. awake, alert, drinking, HOB elevated, denies any discomfort at this time. appears weak. permacath on left chest, HD access, noted bruising on her left chest and both arms. IV lock on rt, forearm. on cardiac care nurse and shows sinus tach. pt. needs attended. VS checked, call light within reach . pt. anuric.
--- NOTE | 2020-08-20 22:15 | NUR ---
NOTES: pt. resting, no complaints noted. call light at bedside.
--- NOTE | 2020-08-21 00:01 | NUR ---
NOTES: still awake, kept O2 @ 6 lites per nasal cannula.
[2020-08-21 00:45] VITALS: BP_SYST 186
[2020-08-21] MEDS: MORPHINE 2 MG/ML INJ. SYRINGE IVP PRN ×2 (00:56→22:01)
--- NOTE | 2020-08-21 01:00 | NUR ---
NOTES: pt. medicated for c/o back pain, pt. moaning. repositioned and turn to sides.
--- NOTE | 2020-08-21 01:45 | NUR ---
NOTES: pt. checked, noted some relief, able to relax at this time. condition observed.
--- NOTE | 2020-08-21 03:10 | NUR ---
NOTES: pt. quiet and sleeping. condition observed, continue to monitor.
--- NOTE | 2020-08-21 04:30 | NUR ---
NOTES: pt. remain sleeping. condition unchanged. continue to monitor.
--- NOTE | 2020-08-21 05:30 | NUR ---
NOTES: no complaints noted. condition unchanged.
--- NOTE | 2020-08-21 06:40 | NUR ---
CLOSING NOTES; pt. awake, getting confused, holding on to the side rails. repositioned, kept covered with warm blanket, bed alarm on. weighed 146 #. IV lock patent. for further care and assistance. will endorse to incoming shift.
--- NOTE | 2020-08-21 07:55 | NUR ---
Initial note: Patient is awake , alert, oriented x3, moaning but when asking her she doesn't know why she is moaning. She is on Oxygen 6 L/M via NC, Sat O2 = 97%, no SOB. Decrease Oxygen to 4 L/M via NC. Will continue monitor.
[2020-08-21 07:59] VITALS: BP_SYST 136
[2020-08-21] MEDS ORDERED: PANTOPRAZOLE SODIUM 40 MG TAB ONE (08:23)
[2020-08-21] MEDS: SEVELAMER CARBONATE 800 MG TABLET PO SCH ×3 (08:25→18:00)
[2020-08-21] MEDS: DULoxetine HCL 30 MG CAPSULE.DR (CYMBALTA) PO SCH ×2 (08:25→21:44)
[2020-08-21] MEDS: predniSONE 10 MG TABLET PO SCH (08:25)
[2020-08-21] MEDS: PANTOPRAZOLE SODIUM 40 MG TAB PO SCH (08:25)
[2020-08-21] MEDS: BACLOFEN 10 MG TABLET PO SCH ×2 (08:25→21:43)
[2020-08-21 09:04] LABS: ALBUMIN 2.8 g/dL (3.4-4.8); CALCIUM 8.5 mg/dL (8.4-11.0); POTASSIUM 4.2 mmol/L (3.5-5.1); TOTAL BILIRUBIN 0.8 mg/dL (0.0-1.0)
[2020-08-21 09:10] LABS: BASOPHILS % (AUTO) 0.7 % (0.0-2.0); EOSINOPHILS # (AUTO) 0.1 K/uL (0.0-0.4); EOSINOPHILS % (AUTO) 1.6 % (0.0-4.0); HEMATOCRIT 31.2 % (36-48); HEMOGLOBIN 10.1 g/dL (12.0-16.0); LYMPHOCYTES # (AUTO) 1.1 K/uL (1.0-5.5); LYMPHOCYTES % (AUTO) 20.8 % (20.5-51.5); MEAN CORPUSCULAR HEMOGLOBIN 29 pg (27-31); MEAN CORPUSCULAR HGB CONC 32 % (32-36); MEAN CORPUSCULAR VOLUME 89 fL (79.0-98.0); MONOCYTES # (AUTO) 0.6 K/uL (0.0-1.0); MONOCYTES % (AUTO) 10.9 % (1.7-9.3); NEUTROPHILS # (AUTO) 3.4 K/uL (1.8-7.7); PLATELET COUNT (AUTO) 133 K/uL (130-430); RED BLOOD CELL COUNT(AUTO) 3.49 MIL/uL (4.2-6.2); WHITE BLOOD COUNT (AUTO) 5.1 K/uL (4.8-10.8)
--- NOTE | 2020-08-21 09:54 | NUR ---
Breakfast: Pureed + Renal diet was served. Patient ate 50% with 1:1 feeder with aspiration precaution, no sign of aspiration noted.
[2020-08-21 10:01] LABS: CREATININE 7.96 mg/dL (0.55-1.30)
[2020-08-21 10:05] LABS: INR 1.1 (0.8-1.2)
--- NOTE | 2020-08-21 11:04 | NUR ---
Dietitian Recommendations 1) Continue Renal Standard (2gNa, 3gK, 1gPhos), Puree 2) Continue feeding assistance and encourage PO intake as tolerated 3) Continue Renvela for Phosphorous management Please see Nutrition Assessment for further details. LT, RD
[2020-08-21 11:18] VITALS: BP_SYST 136
[2020-08-21] MEDS: ONDANSETRON HCL 4 MG/2 ML VIAL IVP PRN ×2 (12:15→21:44)
--- NOTE | 2020-08-21 12:27 | NUR ---
nausea/ new IV site: Patient states wants to through up. But her IV site is leaking. Start a new IV site on right forearm above the old one with # 20G. Use aseptic technique. 1 attempt. Give Zofran 4 mg IV push as PRN ordered. Will continue monitor. Hold her lunch for now.
[2020-08-21] MEDS ORDERED: BISACODYL 10 MG/SUPPOSITORY RC ONE (13:30)
--- NOTE | 2020-08-21 13:56 | NUR ---
Suppository: Call Dr. Victor about patient is vomiting< Zofran 4 mg IVP given>, and she has no BM more than 5 days. MD has ordered to give Dulcolax suppository x1. If it is not working then give Fleet enema x1.
--- NOTE | 2020-08-21 14:13 | NUR ---
Nephro round: makes round and changes order from Fleet enema to Mineral oil enema.
[2020-08-21] MEDS ORDERED: MINERAL OIL 133 ML ENEMA RC ONE (14:15)
[2020-08-21 16:00] VITALS: BP_SYST 146
--- NOTE | 2020-08-21 16:07 | NUR ---
RN round: Patient is awake, but looks very weak ,resting on bed, no sign of distress. Still no BM after suppository. Will continue monitor.
--- NOTE | 2020-08-21 18:49 | NUR ---
Closing note: Patient is resting comfortable, no sign of distress. Refuses to eat. She is on Oxygen 2 L/M via NC, no SOB. Patient still has no BM after suppository and Enema.
--- NOTE | 2020-08-21 19:15 | NUR ---
OPENING NOTE BEDSIDE REPORT RECEIVED FROM DAYSHIFT NURSE. PATIENT RECEIVED LYING IN BED, ASLEEP, NO S/S OF ACUTE DISTRESS NOTED. BREATHING EVEN AND UNLABORED. HOB RAISED, NASAL CANULA ATTACHED PROPERLY, ON 2L OF OXYGEN. IV SITE IS PATENT, NO SIGNS OF INFILTRATION OR INFECTION NOTED. PERMACATH SITE SECURED, NO SIGNS OF ACTIVE BLEEDING. FEET ELEVATED WITH PILLOW. BED ALARM ON. BED IS LOCKED AND AT LOWEST POSITION. WILL CONTINUE TO MONITOR.
[2020-08-21 20:00] VITALS: BP_SYST 125
[2020-08-21] MEDS: AMITRIPTYLINE HCL 25 MG TABLET (ELAVIL) PO SCH (21:44)
--- NOTE | 2020-08-21 21:44 | NUR ---
[facility]PASS SCHEDULED MEDS GIVEN AT THIS TIME. PATIENT TOLERATED WELL. ALL NEEDS MET. BED ALARM ON. WILL CONTINUE TO MONITOR.
--- NOTE | 2020-08-21 23:00 | NUR ---
ROUNDS PATIENT SLEEPING AT THIS TIME. NO S/S OF ACUTE DISTRESS NOTED. BREATHING EVEN AND UNLABORED. ALL NEEDS MET. BED ALARM ON. WILL CONTINUE TO MONITOR.
[2020-08-22 00:25] VITALS: BP_SYST 100
--- NOTE | 2020-08-22 01:00 | NUR ---
ROUNDS PATIENT SLEEPING COMFORTABLY, NO CHANGE FROM PREVIOUS CONDITION. ALL NEEDS MET. BED ALARM ON. WILL CONTINUE TO MONITOR.
--- NOTE | 2020-08-22 03:00 | NUR ---
ROUNDS PATIENT IN BED SLEEPING. NO CHANGE IN CONDITION. BED ALARM ON. WILL CONTINUE TO MONITOR.
--- NOTE | 2020-08-22 05:00 | NUR ---
PERICARE PATIENT CLEANED AT THIS TIME, REPOSITIONED, TOLERATED WELL. ALL NEEDS MET. BED ALARM ON. HOB RAISED. WILL CONTINUE TO MONITOR.
--- NOTE | 2020-08-22 06:37 | NUR ---
ATTENDING MD DR ABBASI WAS CALLED, RE: PT HAD NO BOWEL MOVEMENT FOR 4 DAYS NOW. LEFT A VOICE MESSAGE ON HIS CELL.
--- NOTE | 2020-08-22 06:42 | NUR ---
CLOSING NOTES/FLEET ENEMA PATIENT IN BED ASLEEP. NO S/S OF ACUTE DISTRESS NOTED. BREATHING EVEN AND UNLABORED. HOB RAISED. NASAL CANULA ATTACHED PROPERLY, ON 2L OF OXYGEN. IV SITE PATENT, NO SIGNS OF INFILTRATION OR INFECTION NOTED. NO ACTIVE BLEEDING NOTED. ALL NEEDS MET THROUGHOUT SHIFT. FALL, SAFETY PRECAUTIONS MAINTAINED THROUGHOUT SHIFT. WILL CONTINUE TO MONITOR UNTIL PATIENT CARE IS ENDORSED TO [facility] NURSE. Addendum: 08/22/20 at 0722 by Ravi Callahan RN ADDITIONAL SPOKE WITH DR ABBASI, INFORMED NO BM MD CLAUDIA ORDERED FLEET ENEMA, WILL CARRY OUT ORDER.
[2020-08-22] MEDS ORDERED: SODIUM PHOSPHATE,MONO-DIBASIC 133 ML ENEMA RC ONE (06:45)
--- NOTE | 2020-08-22 07:40 | NUR ---
OPENING NOTES: RECEIVED PATIENT FROM MASTER OCEAN YACHT NURSE. PATIENT IS ASLEEP LAYING DOWN IN BED. PATIENT IS TOLERATING OXYGEN ON 2L VIA NASAL CANNULA. WITH NO SIGNS OF DISTRESS OR SHORTNESS OF BREATH NOTED. PERMACATH SITE SECURED, NO SIGNS OF ACTIVE BLEEDING. FEET ELEVATED WITH PILLOW. BED ALARM ON. PATIENT IN STABLE CONDITION. SAFETY, FALL, AND ASPIRATION PRECAUTIONS ARE IN PLACE. BED LOCKED IN LOWEST POSITION WITH CALL LIGHT WITHIN REACH. WILL CONTINUE TO MONITOR PATIENT FOR ANY CHANGES.
[2020-08-22 07:50] VITALS: BP_SYST 106
[2020-08-22] MEDS ORDERED: PANTOPRAZOLE SODIUM 40 MG TAB ONE (08:41)
[2020-08-22] MEDS: SEVELAMER CARBONATE 800 MG TABLET PO SCH ×3 (09:00→18:00)
[2020-08-22] MEDS: predniSONE 10 MG TABLET PO SCH (09:00)
--- NOTE | 2020-08-22 10:20 | NUR ---
RN ROUNDS: PATEINT IS AWAKE LAYING DOWN IN BED. PATIENT IS TOLERATING OXYGEN ON 2L VIA NASAL CANNULA WITH NO SIGNS OF DISTRESS OR SHORTNESS OF BREATH NOTED.DENIES PAIN AT THE MOMENT. PATIENT IN STABLE CONDITION. WILL CONTINUE TO MONITOR PATIENT FOR ANY CHANGES.
[2020-08-22] MEDS: DULoxetine HCL 30 MG CAPSULE.DR (CYMBALTA) PO SCH ×2 (10:22→19:52)
[2020-08-22] MEDS: PANTOPRAZOLE SODIUM 40 MG TAB PO SCH (10:22)
[2020-08-22] MEDS: BACLOFEN 10 MG TABLET PO SCH ×2 (10:22→19:52)
[2020-08-22 11:42] VITALS: BP_SYST 118
--- NOTE | 2020-08-22 12:23 | NUR ---
RN ROUNDS: PATIENT IS AWAKE LAYING DOWN IN BED. PATIENT IS TOLERATING OXYGEN ON 2L VIA NASAL CANNULA WITH NO SIGNS OF DISTRESS OR SHORTNESS OF BREATH NOTED. PATIENT IN STABLE CONDITION. WILL CONTINUE TO MONITOR PATIENT FOR ANY CHANGES.
[2020-08-22] MEDS ORDERED: ALBUTEROL SULFATE 0.083% 2.5 MG/3 ML VIAL.NEB INH PRN (13:30)
--- NOTE | 2020-08-22 14:20 | NUR ---
RN ROUNDS: PATIENT IS AWAKE LAYING DOWN IN BED. PATIENT IS TOLERATING OXYGEN ON 2L VIA NASAL CANNULA WITH NO SIGNS OF DISTRESS OR SHORTNESS OF BREATH NOTED.DENIES PAIN AT THE MOMENT. PATIENT IN STABLE CONDITION. WILL CONTINUE TO MONITOR PATIENT FOR ANY CHANGES.
[2020-08-22 15:24] VITALS: BP_SYST 124
--- NOTE | 2020-08-22 16:25 | NUR ---
CONSULTATION CALLED REASON FOR CONSULTATION:ALTERED MENTAL STATUS WAS CONSULT CALLED?Y PERSON WHO WAS NOTIFIED:SARA OWENS'S PAGER PAGED CONSULTING PHYSICIAN:SARA OWENS HOTEL FRONT OFFICE MANAGER SPECIALTY:NEURO HOTEL FRONT OFFICE MANAGER PHONE NUMBER:[phone] REQUESTING PHYSICIAN:DAVE BERGER
--- NOTE | 2020-08-22 16:25 | NUR ---
RN ROUNDS: PATIENT IS AWAKE LAYING DOWN IN BED. PATIENT IS TOLERATING OXYGEN ON 2L VIA NASAL CANNULA WITH NO SIGNS OF DISTRESS OR SHORTNESS OF BREATH NOTED. IV LINE PATENT AND INTACT WITH NO SIGNS OF INFILTRATION NOTED. PATIENT IN STABLE CONDITION. WILL CONTINUE TO MONITOR PATIENT FOR ANY CHANGES.
[2020-08-22] MEDS: MORPHINE 2 MG/ML INJ. SYRINGE IVP PRN (16:34)
--- NOTE | 2020-08-22 16:43 | NUR ---
S.T. SWALLOW EVAL SWALLOW EVAL PERFORMED. PT PRESENTS W/ SEV PRE-ORAL, ORAL, AND PHARYNGEAL DYSPHAGIA W/ POOR BOLUS AWARENESS/LOCKER ROOM MANAGER, ABSENT BOLUS MANIPULATION, AND ABSENT SWALLOW. PT IS AT HIGH RISK FOR ASPIRATION, MALNUTRITION, AND DEHYDRATION. REC: NPO - ALTERNATIVE METHOD FOR FEEDING. NURSE MARTHA NOTIFIED.
--- NOTE | 2020-08-22 18:05 | NUR ---
PHYSICIAN ROUND: DR. Ramos CAME AND SAID HE WILL CHANGE PERMACATH ON SATURDAY INSTEAD OF TOMORROW.
[2020-08-22] MEDS: EPOETIN ALFA 10,000 UNITS/ML VIAL SUBCUT SCH (18:07)
--- NOTE | 2020-08-22 18:50 | NUR ---
RN NOTES:CALLED AND SPOKE WITH . INFORMED HIM THAT CAME AND SAID HE'LL DO THE PERMACATH PLACEMENT ON SATURDAY INSTEAD OF SATURDAY. NO NEW ORDER GIVEN BY REGARDING THIS CHANGE OF SCHED.
[2020-08-22] MEDS: NICOTINE 14 MG/24 HR PATCH.TD24 TD SCH (19:00)
--- NOTE | 2020-08-22 19:30 | NUR ---
CLOSING NOTES: BED SIDE REPORT GIVEN TO SECRETARIAL STENOGRAPHER NURSE. PATIENT IS AWAKE LAYING DOWN IN BED. PATIENT IS TOLERATING OXYGEN ON 2L VIA NASAL CANNULA. WITH NO SIGNS OF DISTRESS OR SHORTNESS OF BREATH NOTED. PERMACATH SITE SECURED, NO SIGNS OF ACTIVE BLEEDING. FEET ELEVATED WITH PILLOW. BED ALARM ON. PATIENT IN STABLE CONDITION. SAFETY, FALL, AND ASPIRATION PRECAUTIONS REMAINED IN PLACE. BED LOCKED IN LOWEST POSITION WITH CALL LIGHT WITHIN REACH. CARE ENDORSE TO SECRETARIAL STENOGRAPHER NURSE. WILL CONTINUE TO MONITOR PATIENT FOR ANY CHANGES. Addendum: 08/22/20 at 1935 by Aleks Alfonso RN CARE ENDORSED TO SECRETARIAL STENOGRAPHER NURSE.
--- NOTE | 2020-08-22 19:38 | NUR ---
SPOKE TO DR. ABBASI REGARDING PT'S SON'S DESIRE TO SPEAK TO HIM. GAVE DR. ABBASI PT'S SON'S PHONE NUMBER.
[2020-08-22] MEDS: AMITRIPTYLINE HCL 25 MG TABLET (ELAVIL) PO SCH (19:52)
[2020-08-22 20:00] VITALS: BP_SYST 122
[2020-08-23] VITALS (19 sets, daily range): BP systolic 115–181
[2020-08-23 07:29] LABS: BASOPHILS # (AUTO) 0.1 K/uL (0.0-0.2); BASOPHILS % (AUTO) 1.3 % (0.0-2.0); EOSINOPHILS % (AUTO) 0.5 % (0.0-4.0); HEMATOCRIT 30.9 % (36-48); HEMOGLOBIN 9.7 g/dL (12.0-16.0); LYMPHOCYTES # (AUTO) 0.8 K/uL (1.0-5.5); LYMPHOCYTES % (AUTO) 15.4 % (20.5-51.5); MEAN CORPUSCULAR HEMOGLOBIN 28 pg (27-31); MEAN CORPUSCULAR HGB CONC 31 % (32-36); MEAN CORPUSCULAR VOLUME 90 fL (79.0-98.0); MONOCYTES # (AUTO) 0.5 K/uL (0.0-1.0); MONOCYTES % (AUTO) 9.8 % (1.7-9.3); NEUTROPHILS # (AUTO) 3.9 K/uL (1.8-7.7); PLATELET COUNT (AUTO) 126 K/uL (130-430); RED BLOOD CELL COUNT(AUTO) 3.44 MIL/uL (4.2-6.2); RED CELL DISTRIBUTION WIDTH 17.7 % (9.0-15.0); WHITE BLOOD COUNT (AUTO) 5.3 K/uL (4.8-10.8)
--- NOTE | 2020-08-23 07:30 | NUR ---
Neuro Patient is awake but not responding to verbal command, able to move from side to side on her own all extremities able to move, received with Ventimask 50% oxygen saturation 98%, blood pressure is elevated , Dr. Monroe informed ALOC, Vitals sign , plan of care for today unable to do HD no access , with n. o. carried out. Addendum: 08/23/20 at 1124 by Rosamaria Alas RN Blood sugar was checked on initial round because patient is NPO and no IV fluid 93 mg/dl
--- NOTE | 2020-08-23 07:44 | NUR ---
HIGH ALERT NOTE: Called Dr. Fer Feliz back at phone [phone] identified within the medical roster to verify physician authenticity for Medication ordered Ativan IV X1
[2020-08-23] MEDS ORDERED: LORazepam 2 MG/ML VIAL IVP ONE (07:45)
[2020-08-23] MEDS: predniSONE 10 MG TABLET PO SCH (07:46)
[2020-08-23] MEDS: BACLOFEN 10 MG TABLET PO SCH ×2 (07:47→21:00)
[2020-08-23] MEDS: PANTOPRAZOLE SODIUM 40 MG TAB PO SCH (07:47)
[2020-08-23] MEDS: DULoxetine HCL 30 MG CAPSULE.DR (CYMBALTA) PO SCH ×2 (07:47→21:00)
[2020-08-23] MEDS: SEVELAMER CARBONATE 800 MG TABLET PO SCH ×2 (07:48→12:00)
[2020-08-23] MEDS: D5/0.45 NS 1,000 ML IV SCH (08:07)
[2020-08-23] MEDS: ENALAPRILAT DIHYDRATE 1.25 MG/ML VIAL IVP PRN ×2 (08:07→15:29)
[2020-08-23 08:30] LABS: CALCIUM 8.9 mg/dL (8.4-11.0)
[2020-08-23 08:34] LABS: TOTAL BILIRUBIN 0.9 mg/dL (0.0-1.0)
[2020-08-23 08:35] LABS: ALBUMIN 2.8 g/dL (3.4-4.8); CREATININE 12.44 mg/dL (0.55-1.30)
--- NOTE | 2020-08-23 08:35 | NUR ---
Patient is unresponsive , cyanotic , HR 20/MIN , urinated in the bed ,coded patient CPR , patient revived HR , Bp , oxygen saturation and intubated by ER doctor , NGT , transfer to [facility] connected mechanical ventilator
--- NOTE | 2020-08-23 09:25 | NUR ---
RT NOTE: 0835 CODE BLUE called. Upon arrival, CPR already initiated by RN. [address] Thomas with ETT 7.0, secured at 19cm. Color change noted on CO2 detector. Bilateral breath sounds confirmed by DR. Thomas. 0946 Pt transferred from RM 100a to 126b. Pt placed on vent with the ff settings AC 24, Vt 400, PEEP 5, and FiO2 100%.
--- NOTE | 2020-08-23 09:30 | NUR ---
Transfer to ROOM 126B under ICU care report given to SHANELL/RN with all the information ;Spoke to Joanne Homerbreanna son of the patient informed regarding patient progress intubated and T ransfer to ICU.
[2020-08-23 09:40] LABS: CALCIUM 8.7 mg/dL (8.4-11.0); POTASSIUM 5.1 mmol/L (3.5-5.1)
[2020-08-23 09:53] LABS: ALBUMIN 2.7 g/dL (3.4-4.8); TOTAL BILIRUBIN 0.8 mg/dL (0.0-1.0)
--- NOTE | 2020-08-23 10:00 | NUR ---
Pt s/p cardiac arrest, intubated 848 after emilia cruz was called. Pt received 1 dose of epi during CPR. Intubated with 7.0 ETT, 19 cm at the lip. NG tube inserted to right nare, positive placement per pCxR. Pt unresponsive, pupils fixed, tolerating vent. AC 24, TV 400, peep 5, 100%FiO2.
[2020-08-23 10:03] LABS: BASOPHILS % (AUTO) 0.5 % (0.0-2.0); EOSINOPHILS % (AUTO) 0.4 % (0.0-4.0); HEMATOCRIT 32.1 % (36-48); HEMOGLOBIN 9.8 g/dL (12.0-16.0); LYMPHOCYTES % (AUTO) 30.5 % (20.5-51.5); MEAN CORPUSCULAR HEMOGLOBIN 28 pg (27-31); MEAN CORPUSCULAR HGB CONC 31 % (32-36); MEAN CORPUSCULAR VOLUME 92 fL (79.0-98.0); MONOCYTES # (AUTO) 0.5 K/uL (0.0-1.0); MONOCYTES % (AUTO) 7.8 % (1.7-9.3); NEUTROPHILS % (AUTO) 60.8 % (40.0-70.0); PLATELET COUNT (AUTO) 125 K/uL (130-430); RED BLOOD CELL COUNT(AUTO) 3.48 MIL/uL (4.2-6.2); RED CELL DISTRIBUTION WIDTH 17.3 % (9.0-15.0); WHITE BLOOD COUNT (AUTO) 6.6 K/uL (4.8-10.8)
--- NOTE | 2020-08-23 10:10 | NUR ---
16f Medina catheter inserted using aseptic technique. Immediate return of 10cc dark urine. Bag placed to gravity. Stat Lock to left thigh. Pt tolerated well.
[2020-08-23] MEDS: NICOTINE 14 MG/24 HR PATCH.TD24 TD SCH (10:13)
[2020-08-23 10:21] LABS: CREATININE 12.89 mg/dL (0.55-1.30)
--- NOTE | 2020-08-23 10:45 | NUR ---
SPOKE WITH DR. CABRERA FOR UPDATE ON PT STATUS AND NOTIFY OF CRITICAL TROPONIN 1.189. NO NEW ORDERS RECEIVED AT THIS TIME
--- NOTE | 2020-08-23 11:00 | NUR ---
Kel here for EEG at bedside
--- NOTE | 2020-08-23 11:25 | NUR ---
RT NOTES BASED ON ABG RESULTS DECREASED FIO2 TO 40% AT THIS TIME. EDDIE REECE MADE AWARE. WILL CONTINUE MONITORING.
[2020-08-23] MEDS ORDERED: ROCURONIUM BROMIDE 10 MG/ML (ZEMURON) IV ONE (12:25)
[2020-08-23] MEDS ORDERED: ETOMIDATE 20 MG/ 10 ML VIAL (AMIDATE) IVP ONE (12:25)
--- NOTE | 2020-08-23 13:40 | NUR ---
care assumed at this time.
--- NOTE | 2020-08-23 14:45 | NUR ---
RUE PICC line placed. Placement confirmed via CXR
[2020-08-23 15:39] LABS: INR 1.2 (0.8-1.2); PROTHROMBIN TIME 12.1 SECS (9.5-12.5)
--- NOTE | 2020-08-23 15:43 | NUR ---
Called Dr. Méndez with a consult, spoke with Ana from doctors office
--- NOTE | 2020-08-23 15:50 | NUR ---
Dr. Monroe at the bedside.
--- NOTE | 2020-08-23 16:10 | NUR ---
Called Irene Carlton with a consult, spoke with Ana from the exchange
--- NOTE | 2020-08-23 18:00 | NUR ---
pt remains on current vent settings
--- NOTE | 2020-08-23 18:51 | NUR ---
current accu check is 156. Addendum: 08/23/20 at 1908 by Juju Masters RN current accu check is 99.
--- NOTE | 2020-08-23 19:30 | NUR ---
Opening Note Received report from AM nurse using SBAR approach.
--- NOTE | 2020-08-23 20:00 | NUR ---
care endorsed to Medhat MORGAN
[2020-08-23] MEDS: AMITRIPTYLINE HCL 25 MG TABLET (ELAVIL) PO SCH (21:00)
--- NOTE | 2020-08-23 21:01 | NUR ---
Dr. Feliz put in new order for patient to receive permacatheter procedure in the AM at bedside instead of the tunnel catheter NPO after midnight. Dr. Feliz stated he talked to the family already and to get consent for procedure.
--- NOTE | 2020-08-23 22:00 | NUR ---
Spoke to the son regarding patient's procedure for the permacatheter and to receive consent. Son said that Dr. Feliz did not speak to him about the procedure. Informed the patient that the doctor will speak to him about the risk and benefit before signing consent.
[2020-08-24] VITALS (29 sets, daily range): BP systolic 111–198
--- NOTE | 2020-08-24 06:50 | NUR ---
NOTIFIED RADHA BREWER MT IN ICU THAT LEADS ARE OFF.
[2020-08-24 07:08] LABS: BASOPHILS % (AUTO) 0.6 % (0.0-2.0); EOSINOPHILS % (AUTO) 0.4 % (0.0-4.0); HEMATOCRIT 30.8 % (36-48); HEMOGLOBIN 9.8 g/dL (12.0-16.0); LYMPHOCYTES # (AUTO) 0.9 K/uL (1.0-5.5); LYMPHOCYTES % (AUTO) 13.6 % (20.5-51.5); MEAN CORPUSCULAR HEMOGLOBIN 28 pg (27-31); MEAN CORPUSCULAR HGB CONC 32 % (32-36); MEAN CORPUSCULAR VOLUME 88 fL (79.0-98.0); MONOCYTES # (AUTO) 0.7 K/uL (0.0-1.0); MONOCYTES % (AUTO) 10.9 % (1.7-9.3); NEUTROPHILS # (AUTO) 4.6 K/uL (1.8-7.7); NEUTROPHILS % (AUTO) 74.5 % (40.0-70.0); PLATELET COUNT (AUTO) 111 K/uL (130-430); RED CELL DISTRIBUTION WIDTH 17.8 % (9.0-15.0); WHITE BLOOD COUNT (AUTO) 6.2 K/uL (4.8-10.8)
--- NOTE | 2020-08-24 07:20 | NUR ---
Closing note Endorsed report to AM nurse using SBAR approach.
[2020-08-24] MEDS: D5/0.45 NS 1,000 ML IV SCH (07:45)
[2020-08-24 07:47] LABS: ALBUMIN 2.7 g/dL (3.4-4.8); CALCIUM 8.6 mg/dL (8.4-11.0); POTASSIUM 5.1 mmol/L (3.5-5.1); TOTAL BILIRUBIN 1.2 mg/dL (0.0-1.0)
--- NOTE | 2020-08-24 07:50 | NUR ---
Opening Note received bedside SBAR report from civil engineering specialist RN, patient on mechanical ventilator, garcía catheter draining to gravity, scant urine output, call light in reach, bed in low and locked position, bed alarm on.
[2020-08-24 07:51] LABS: CREATININE 14.26 mg/dL (0.55-1.30)
[2020-08-24] MEDS: SEVELAMER CARBONATE 800 MG TABLET PO SCH ×3 (08:00→17:06)
[2020-08-24] MEDS: predniSONE 10 MG TABLET PO SCH (08:00)
[2020-08-24] MEDS: DULoxetine HCL 30 MG CAPSULE.DR (CYMBALTA) PO SCH ×2 (09:00→19:55)
[2020-08-24] MEDS: BACLOFEN 10 MG TABLET PO SCH ×2 (09:00→19:54)
[2020-08-24] MEDS: PANTOPRAZOLE SODIUM 40 MG TAB PO SCH (09:00)
[2020-08-24] MEDS: ENALAPRILAT DIHYDRATE 1.25 MG/ML VIAL IVP PRN (09:33)
--- NOTE | 2020-08-24 09:38 | NUR ---
Physician Rounds rounds with Dr. Stephens, informed him that SBP has been in the 180's and 190's most recent BP 192/106, HR 117, informed him that PRN vasotec was given, no new orders.
[2020-08-24] MEDS: NICOTINE 14 MG/24 HR PATCH.TD24 TD SCH (11:05)
[2020-08-24] MEDS ORDERED: hydrALAZINE HCL 20 MG/ML VIAL ONE (11:19)
--- NOTE | 2020-08-24 11:21 | NUR ---
Spoke with Physician spoke with Dr. Stephens, informed him that vasotec 1.25mg IVP was given at 0933, informed him that patients current BP 196/106, HR 121, new medication orders received, verified with read back.
[2020-08-24] MEDS ORDERED: hydrALAZINE HCL 20 MG/ML VIAL IVP PRN (11:30)
[2020-08-24] MEDS ORDERED: LORazepam 2 MG/ML VIAL ONE (11:57)
--- NOTE | 2020-08-24 11:59 | NUR ---
RN NOTES DR. WILSON HERE TO SEE PATIENT.
[2020-08-24] MEDS ORDERED: LORazepam 2 MG/ML VIAL IVP ONE (12:00)
--- NOTE | 2020-08-24 12:00 | NUR ---
HIGH ALERT NOTE: Dr. Mainor WILSON at bedside, identified within the medical roster to verify physician authenticity.
--- NOTE | 2020-08-24 12:20 | NUR ---
Physician spoke with patients son Dr. Mainor Feliz spoke with patients son Joanne Donahue regarding placement of dialysis access, Joanne verbalized understanding and is agreeable for procedure.
--- NOTE | 2020-08-24 12:55 | NUR ---
Herbert Catheter Dr. Mainor Feliz completed procedure, right IJ herbert catheter was placed, no bleeding noted, sterile transparent dressing in place, Dr. Mainor Feliz removed left subclavian herbert catheter and held pressure at site, site covered with sterile gauze dressing, Dr. Mainor Feliz speaking with patients mira Rubio, radiology at bedside for chest x-ray, per Dr. Mainor Feliz right IJ herbert catheter is in place and okay to use now, verified with read back.
--- NOTE | 2020-08-24 13:07 | NUR ---
Physician Rounds Dr. Stephens at bedside examining patient, informed him of patients elevated heart rate 110's-120's, informed him that BP has decreased since hydralzine was administered, informed him that patients mira Rubio would like to speak with him, per Dr. Stephens he will call patients son.
--- NOTE | 2020-08-24 13:24 | NUR ---
Spoke with physician spoke with Dr. Monroe, informed him that right IJ herbert has been placed and is okay to use per Dr. Mainor Feliz, new orders for hemodialysis received, informed him of critical lab creatinine 14.26 and BUN 63.
--- NOTE | 2020-08-24 14:41 | NUR ---
Cleaned/Linen changed patient cleaned, linen and gown changed, patient tolerated well, heels floating.
--- NOTE | 2020-08-24 15:50 | NUR ---
Family at bedside visit from family approved by nursing central office supervisor, patients daughters at bedside.
[2020-08-24] MEDS: EPOETIN ALFA 10,000 UNITS/ML VIAL SUBCUT SCH (17:34)
--- NOTE | 2020-08-24 17:40 | NUR ---
Physician Rounds Dr. Monroe at bedside examining patient, Dr. Monroe aware of BP 178/93, per Dr. Monroe hold PRN medication for BP at this time pending hemodialysis tonight, per nursing supervisor television [employer] [place] she spoke with classroom technology technician and they will be in this evening for hemodialysis.
--- NOTE | 2020-08-24 19:25 | NUR ---
Opening Note Received report from AM nurse using SBAR approach.
--- NOTE | 2020-08-24 19:25 | NUR ---
Closing Note bedside SBAR report given to receiving RN, patient on mechanical ventilator, awaiting hemodialysis this evening, no bleeding noted from right IJ herbert placed today, care endorsed to Medhat MORGAN.
[2020-08-24] MEDS: AMITRIPTYLINE HCL 25 MG TABLET (ELAVIL) PO SCH (19:55)
--- NOTE | 2020-08-24 21:45 | NUR ---
patient is receiving dialysis. Dialysis nurse at bedside.
[2020-08-24] MEDS ORDERED: ALTEPLASE 2 MG VIAL MC ONE ×2 (22:00→22:03)
--- NOTE | 2020-08-24 22:45 | NUR ---
Patient had 1 L taken out of dialysis.
[2020-08-25] VITALS (31 sets, daily range): BP systolic 99–182
--- NOTE | 2020-08-25 02:00 | NUR ---
Cleaned patient with CHG wipes and repositioned. New linens and gowns provided. Patient tolerated well.
[2020-08-25 06:45] LABS: CALCIUM 8.4 mg/dL (8.4-11.0); POTASSIUM 4.5 mmol/L (3.5-5.1)
[2020-08-25 07:18] LABS: CREATININE 10.27 mg/dL (0.55-1.30)
--- NOTE | 2020-08-25 07:37 | NUR ---
Closing Note Endorsed report to AM nurse using SBAR approach.
[2020-08-25] MEDS: D5/0.45 NS 1,000 ML IV SCH (07:45)
--- NOTE | 2020-08-25 08:30 | NUR ---
RN NOTES STILL ON A VENT, SPO2 GOOD. SINUS TACHYCARDI ON THE MONITOR.
[2020-08-25] MEDS: NICOTINE 14 MG/24 HR PATCH.TD24 TD SCH (09:00)
[2020-08-25] MEDS: SEVELAMER CARBONATE 800 MG TABLET PO SCH ×3 (09:51→18:00)
[2020-08-25] MEDS: DULoxetine HCL 30 MG CAPSULE.DR (CYMBALTA) PO SCH ×2 (09:51→21:25)
[2020-08-25] MEDS: BACLOFEN 10 MG TABLET PO SCH ×2 (09:51→21:25)
[2020-08-25] MEDS: predniSONE 10 MG TABLET PO SCH (09:51)
[2020-08-25] MEDS: PANTOPRAZOLE SODIUM 40 MG TAB PO SCH (09:55)
[2020-08-25] MEDS ORDERED: PANTOPRAZOLE SODIUM 40 MG TAB ONE ×2 (09:55→12:05)
--- NOTE | 2020-08-25 10:34 | NUR ---
RT NOTE DECREASED RESPIRATORY RATE PER PHYSICIAN ORDER FROM 24 TO 20 @ 0820, PT PERRI WELL.
--- NOTE | 2020-08-25 10:40 | NUR ---
RN NOTES VENT CHANGES DONE SIMV 16 PS 12 FIO2 35%
[2020-08-25] MEDS: MORPHINE 2 MG/ML INJ. SYRINGE IVP PRN (12:28)
--- NOTE | 2020-08-25 14:45 | NUR ---
RN NOTES VENT CHANGES DONE. SIMV 14 PS 12 FIO2 30%
--- NOTE | 2020-08-25 17:30 | NUR ---
RN NOTES PM CARE DONE, MADE COMFORTABLE.
--- NOTE | 2020-08-25 20:00 | NUR ---
ORALLY INTUBATED. NON RESPONSIVE TO VERBAL, TACTILE, NOXIOUS OR PAINFUL STIMULI. SOME MOVEMENT NOTED ON LEFT FOOT. RIGHT NARES NGT CLAMPED. RIGHT IJ JEREMY CATH DRSG D/I . MENDOZA CATH PATENT DRAINING SCANT AMOUNT OF YVONNE URINE TO GRAVITY. MARY ANNE PICC LINE DRSG D/I. SINUS TACH IN MONITOR.
[2020-08-25] MEDS: AMITRIPTYLINE HCL 25 MG TABLET (ELAVIL) PO SCH (21:25)
--- NOTE | 2020-08-25 22:00 | NUR ---
HS CARE DONE.
[2020-08-26] VITALS (31 sets, daily range): BP systolic 82–205
--- NOTE | 2020-08-26 | NUR ---
SUCTIONED. REPOSITIONED. ORAL CARE DONE. OLIGURIC.
--- NOTE | 2020-08-26 02:00 | NUR ---
OPENS EYES SPONTANEOUSLY. RESPONDS TO NOXIOUS STIMULI. MOVES LEGS.
--- NOTE | 2020-08-26 04:00 | NUR ---
SUCTIONED. ORAL CARE DONE. CHG BATH GIVEN. BACK CARE, REBECA-CARE, SKIN CARE, MENDOZA CARE DONE. PARTIAL LINEN CHANGE. DOES NOT ASSIST WITH TURNING. PERRI PROC WELL.
--- NOTE | 2020-08-26 06:00 | NUR ---
SUCTIONED AND TURNED Q2 HRS AND PRN. UO ALMOST ANURIC. REMAINS IN GUARDED CONDITION.
[2020-08-26 06:38] LABS: BASOPHILS % (AUTO) 0.3 % (0.0-2.0); EOSINOPHILS # (AUTO) 0.2 K/uL (0.0-0.4); EOSINOPHILS % (AUTO) 3.7 % (0.0-4.0); HEMATOCRIT 29.9 % (36-48); HEMOGLOBIN 9.5 g/dL (12.0-16.0); LYMPHOCYTES # (AUTO) 0.3 K/uL (1.0-5.5); LYMPHOCYTES % (AUTO) 6.8 % (20.5-51.5); MEAN CORPUSCULAR HEMOGLOBIN 28 pg (27-31); MEAN CORPUSCULAR HGB CONC 32 % (32-36); MEAN CORPUSCULAR VOLUME 87 fL (79.0-98.0); MONOCYTES # (AUTO) 0.3 K/uL (0.0-1.0); MONOCYTES % (AUTO) 7.1 % (1.7-9.3); NEUTROPHILS # (AUTO) 3.5 K/uL (1.8-7.7); NEUTROPHILS % (AUTO) 82.1 % (40.0-70.0); PLATELET COUNT (AUTO) 110 K/uL (130-430); RED BLOOD CELL COUNT(AUTO) 3.46 MIL/uL (4.2-6.2); RED CELL DISTRIBUTION WIDTH 17.5 % (9.0-15.0); WHITE BLOOD COUNT (AUTO) 4.2 K/uL (4.8-10.8)
[2020-08-26 06:39] LABS: CALCIUM 8.4 mg/dL (8.4-11.0); POTASSIUM 5.4 mmol/L (3.5-5.1)
[2020-08-26] MEDS: D5/0.45 NS 1,000 ML IV SCH (06:45)
--- NOTE | 2020-08-26 08:00 | NUR ---
RN NOTES ORALLY INTUBATED, ON SAME VENT SETTING. SPO2 GOOD. SCOPE SHOWS SINUS TACHYCARDIA. IVF INFUSING VIA PICC.
--- NOTE | 2020-08-26 08:05 | NUR ---
MD VISIT DR. CABRERA HERE TO SEE PATIENT, WITH ORDERS, CARRIED OUT.
[2020-08-26] MEDS: BACLOFEN 10 MG TABLET PO SCH ×2 (08:49→20:54)
[2020-08-26] MEDS: SEVELAMER CARBONATE 800 MG TABLET PO SCH ×3 (08:49→18:28)
[2020-08-26] MEDS: DULoxetine HCL 30 MG CAPSULE.DR (CYMBALTA) PO SCH ×2 (08:49→20:54)
[2020-08-26] MEDS: predniSONE 10 MG TABLET PO SCH (08:49)
--- NOTE | 2020-08-26 09:00 | NUR ---
RN NOTES FAMILY CALLED, UPDATED ON PATIENT PRESENT CONDITION.
--- NOTE | 2020-08-26 09:05 | NUR ---
RN NOTES ABG RESULTS RELAYED TO Tu JACKSON. NO ORDERS MADE.
[2020-08-26 09:48] LABS: CREATININE 12.44 mg/dL (0.55-1.30)
--- NOTE | 2020-08-26 11:30 | NUR ---
REPEAT EEG IN PROGRESS.
--- NOTE | 2020-08-26 12:20 | NUR ---
RN NOTES DR. FULTON HERE TO SEE PATIENT.
--- NOTE | 2020-08-26 14:20 | NUR ---
BP 191/96, PRN MEDS GIVEN. WILL MONITOR PATIENT.
[2020-08-26] MEDS: PANTOPRAZOLE SODIUM 40 MG TAB PO SCH (16:00)
[2020-08-26] MEDS: NICOTINE 14 MG/24 HR PATCH.TD24 TD SCH (16:00)
--- NOTE | 2020-08-26 16:00 | NUR ---
HEMODIALYSIS IN PROGRESS.
[2020-08-26] MEDS ORDERED: ALBUMIN HUMAN 25% 200 ML IV ONE (17:00)
--- NOTE | 2020-08-26 18:00 | NUR ---
RN NOTES SPOKE TO DR. WHEELER, COVERING FOR DR. Howie LONGORIA. HE WILL COME IN AM TO READ RPT EEG AND SEE PATIENT.
--- NOTE | 2020-08-26 18:05 | NUR ---
RT NOTES CHANGE PT TO PREVIOUS AC MODE DUE TO INCREASED HR AND RR. EDDIE TALAMANTES MADE AWARE. PT IS CURRENTLY ON DIALYSIS.
[2020-08-26] MEDS: EPOETIN ALFA 10,000 UNITS/ML VIAL SUBCUT SCH (18:28)
--- NOTE | 2020-08-26 18:30 | NUR ---
RN NOTES PM CARE DONE, PATIENT MADE COMFORTABLE.
--- NOTE | 2020-08-26 19:12 | NUR ---
PAGED DR. JACKSON [phone] SPOKE WITH ABIMBOLA
--- NOTE | 2020-08-26 19:15 | NUR ---
change of shift.pt.presents isolation status;standard.pt.presents ett/ngt in place intact.ng-tube feed.pt.presents picc line.location;rt.bicept. pt.presents garcía cath.intact;patent.pt.presents ventilator;settings reviewed corresponded to md's order;recent.pt. presents affect;blunt.call light/telephone placed w/in access of the pt.
--- NOTE | 2020-08-26 20:00 | NUR ---
pt.assessed.v/s assessed note b/p values elevated.note r/r tachypnea.to f/u w .ett/ngt intact;patent ngt-feed infusing. picc line intact;patent iv fluids infusing.pt.assessed for cleanliness.pt.repositioned.garcía cath intact;patent;urine content scant.pt.presents h/d access location rt.svc;groshong cath w pig-tail.pt.assessed for cleanliness.general status stable. respiratory status stable;02-sat%=94%call light/telephone placed w/in access of the pt.
[2020-08-26] MEDS: AMITRIPTYLINE HCL 25 MG TABLET (ELAVIL) PO SCH (20:54)
--- NOTE | 2020-08-26 21:00 | NUR ---
2100pmedications administered via the ng-tube.ng-tube feed residuals assessed.ngt residuals present profound volume.i have held the ngt feed@thos hour.to re-assess.the ng-tube feed residual per protocol.
--- NOTE | 2020-08-26 22:00 | NUR ---
pt.assessed.v/s assessed note b/p,r/r status. present i have apprised of the pt's r/r status.ett/ngt assessd in place.i have attended to the oral/ett/ngt care/suction.picc line intact;patent iv fluids infusing.garcía cath intact;patent urine content present scant.pt.assessed for cleanliness.pt.repositioned.call light/telephone placed w/in acces of the pt.
[2020-08-27] VITALS (28 sets, daily range): BP systolic 114–188
--- NOTE | 2020-08-27 | NUR ---
pt.assessed.v/s assessed values;note b/p status remains elevated.ett/ngt assessed in place;patent ng-tube feed residuals assessed remains elevated ngt feed hold.i have attended to the oral/ ett/ngt care/suction.picc line intact;patent iv fluids infusing.garcía cath intact;patent urine content present.general status stable.respiratory status stable;02-sat%=96%.call light/telephone placed w/in access of the pt.
[2020-08-27] MEDS ORDERED: VANCOMYCIN HCL 1 GM/NS PREMIX 250 ML IV ONE (00:45)
--- NOTE | 2020-08-27 01:00 | NUR ---
pt.assessed.i have administered vancomycin 1gm ivpb abx x1 order via the picc line.i have administered vasotec;1.25mg ivp 2/t b/p status elevated.to assess the efficacy of the b/p medication per protocol.
[2020-08-27] MEDS: ENALAPRILAT DIHYDRATE 1.25 MG/ML VIAL IVP PRN ×2 (01:15→05:49)
--- NOTE | 2020-08-27 02:00 | NUR ---
pt.assessed.v/s assessed note b/p status.pt.presents decrease in b/p status.ett/ngt assessed in place patent.i have attended to the oral/ett care suction.ng-tube intact;patent.ng-tube feed residuals assessed remains elevated.picc line intact;patent iv fluids infusing.pt.assessed foe cleanliness.pt.repositioned.note r/r wnl.general status stable.respiratory status stable;02-sat%= 96%.call light/telephone placed w/in access of the pt.
[2020-08-27] MEDS ORDERED: VANCOMYCIN HCL 1000 MG/VIAL IV ONE (02:20)
--- NOTE | 2020-08-27 04:00 | NUR ---
pt.assessed.v/s assessed values;note b/p.pt.ett/ngt in place.i have attended to the oral ett/ngt care/suction.picc line intact; patent iv fluids infusing.garcía cath intact;patent urine content present;scant.pt.assessed for cleanliness.pt.repositioned.call light/teeplhone placed w/in access of the pt.
[2020-08-27] MEDS: D5/0.45 NS 1,000 ML IV SCH (05:04)
--- NOTE | 2020-08-27 06:30 | NUR ---
pt.assessed.v/s assessed values note b/p status.i have administered vasotec:1.25mg ivp.to assess the efficacy of the medication per protocol.ett/ngt assessed in place.i have attended to the oral,ett/ngt care/suction.picc line intact;patent iv fluids infusing. garcía cath intact;patent urine content present;scant.i have wieghed the pt.2/t hemo-dialysis hx.pt.assessed for cleanliness.pt. repositioned.general status stable;respiratory status stable;o2-sat%=98%.call light/telephone placed w/in access of the pt.
--- NOTE | 2020-08-27 08:00 | NUR ---
RN NOTES OPENS EYES SPONTANEOUSLY, UNABLE TO FOLLOW SIMPLE COMMANDS. SINUS TACHYCARDIA ON THE MONITOR. ON SAME VENT SETTING, SPO2 GOOD.
[2020-08-27] MEDS: NICOTINE 14 MG/24 HR PATCH.TD24 TD SCH (09:00)
[2020-08-27] MEDS: DULoxetine HCL 30 MG CAPSULE.DR (CYMBALTA) PO SCH ×2 (09:01→20:47)
[2020-08-27] MEDS: SEVELAMER CARBONATE 800 MG TABLET PO SCH ×3 (09:01→18:00)
[2020-08-27] MEDS: BACLOFEN 10 MG TABLET PO SCH ×2 (09:01→20:47)
[2020-08-27] MEDS: PANTOPRAZOLE SODIUM 40 MG TAB PO SCH (09:01)
[2020-08-27] MEDS: predniSONE 10 MG TABLET PO SCH (09:01)
[2020-08-27 09:35] LABS: CALCIUM 8.8 mg/dL (8.4-11.0); POTASSIUM 4.7 mmol/L (3.5-5.1)
[2020-08-27 09:37] LABS: CREATININE 9.51 mg/dL (0.55-1.30)
--- NOTE | 2020-08-27 09:45 | NUR ---
RN NOTES ABG RESULTS RRELAYED TO DR. JACKSON, WITH ORDERS.
--- NOTE | 2020-08-27 14:00 | NUR ---
MD VISIT: DR. WHEELER (NEURO) DR. WHEELER HERE TO SEE PATIENT, CALLED AND SPOKE TO THE FAMILY ABOUT THE EEG RESULT.
--- NOTE | 2020-08-27 16:00 | NUR ---
PM CARE DONE, MADE COMFORTABLE.
--- NOTE | 2020-08-27 17:22 | NUR ---
Nutrition F/U RD reviewed pt's current EMR record including diet Hx, physician notes, nursing notes, pertinent labs/meds/procedures, care trends, and care activity. Admission Dx: Rule Out Myocardial Infarction, End Stage Renal Failure PMH: COPD, ESRD on HD, Cardiac Disorder, HTN, CAD, Dyslipidemia, and Atherosclerotic Heart Disease with previous stent placement per physician notes. Found w/ Severe Malnutrition, acute on chronic mild decompensation of CHF, Anemia of CKD per physician notes. SARS-CoV-2 Ag (Rapid) Negative 08/16 Pt is s/p cardiopulmonary arrest 08/23; plans for HD tomorrow; possible withdrawal of care d/t possible brain per EEG; no longer sedated per EMR review 08/27 Current Diet Order/Nutrition Support: NPO x3 days Subjective Info: RD called ICU, however, RNs were very busy and unable to answer RD verbal interview questions. Pt is not meeting nutrition needs at this time. RD reviewed EMR -- pt appears to be full code at this time; intubated on vent support; abd is distended/firm/hypoactive bowel sounds; last BM x2 08/26. Pertinent Medications Procrit, Protonix, Zofran, Renvela, Prednisone Pertinent Labs BUN 67 H, CRE 9.51 H, eGFR 4 L, phos 4.9 H Skin Integrity Comment: Sav Score: 8; L/R arm noted w/ wound; generalized 2+ pitting edema per EMR Current % PO 31% avg x6 meals and 5 meals refused NEW Estimated Energy Expenditure (kcals/day) -- Minute volume: 10.9/temperature: 37.3 degrees C 1424 kcal/day (PSU d/t critical illness, intubated on vent support) Estimated Protein Required (g/day) 76-82 gm/day (1.2-1.3g/kg based on CBW for ESRD on HD) Estimated Fluid Required (l/day) Deferred to MD d/t hx of ESRD Problem/Etiology/Signs/Symptoms Altered nutrition related lab values r/t hx of end stage renal failure requiring dialysis AEB elevated BUN/Cr and Phosphorous, and low GFR. *ongoing Inadequate protein energy intake r/t likely confusion and prior reports of chewing difficulty AEB pt with 31% avg intake x 6 meals and 5 meals refused, and 50% PO intake this AM per RD d/w RN. *no longer applicable Suboptimal nutritional intakes related to metabolic demands as evidenced by no current nutrition support. Expected Outcomes/Goals Monitor appetite and PO intakes w/ goal of pt meeting at least 75% of estimated nutritional needs, labs trending WNL, normal GI function, and skin integrity/wt maintenance. Dietitian Recommendations * Consider alternative nutrition support (EN versus PPN/TPN if gut is functional) if/when medically appropriate Follow Up High Risk: F/U in 2-3 days
--- NOTE | 2020-08-27 17:29 | NUR ---
Dietitian Recommendations * Consider alternative nutrition support (EN versus PPN/TPN if gut is functional) if/when medically appropriate LP, RD Please refer to Nutrition F/U for details.
--- NOTE | 2020-08-27 18:30 | NUR ---
PM CARE NO ACUTE DISTRESS NOTED, VITALS STABLE.
--- NOTE | 2020-08-27 20:00 | NUR ---
OPENS EYES SPONTANEOUSLY. DOES NOT FOLLOW COMMANDS. RESPONDS TO NOXIOUS STIMULI. TRACH TO VENT. SUCTIONED WITH MOD AMOUNT OF THIN WHITE MUCUS OBTAINED. ORAL CARE GIVEN. NGT FEEDING WITH NEPRO INFUSING AT 40CC/HR. RESIDUAL CHECK 60CC. RIGHT IJ JEREMY CATH DRSG D/I. MENDOZA CATH IN PLACE, ANURIC. MARY ANNE PICC LINE DRSG D/I. SINUS TACH.
[2020-08-27] MEDS ORDERED: AMITRIPTYLINE HCL 25 MG TABLET (ELAVIL) ONE (20:46)
[2020-08-27] MEDS: AMITRIPTYLINE HCL 25 MG TABLET (ELAVIL) PO SCH (20:47)
--- NOTE | 2020-08-27 21:30 | NUR ---
DR JACKSON HERE, UPDATED ON STATUS. NO NEW ORDERS GIVEN.
--- NOTE | 2020-08-27 22:00 | NUR ---
HS CARE GIVEN.
--- NOTE | 2020-08-27 23:30 | NUR ---
DR JACKSON WITH NEW ORDERS TO BE IMPLEMENTED.
[2020-08-28] VITALS (31 sets, daily range): BP systolic 81–163
--- NOTE | 2020-08-28 | NUR ---
SUCTIONED. REPOSITIONED. ORAL CARE GIVEN. RESIDUAL CHECK 60CC.
--- NOTE | 2020-08-28 04:00 | NUR ---
CHG BATH GIVEN. ORAL CARE, REBECA-CARE, BACK CARE, MENDOZA CARE, SKIN CARE DONE. PARTIAL LINEN CHANGE. DOES NOT ASSIST WITH TURNING. PERRI PROC WELL.
--- NOTE | 2020-08-28 06:00 | NUR ---
UO ANURIC. SUCTIONED AND TURNED Q2 HRS AND PRN. REMAINS IN GUARDED CONDITION. RESTLESS.
--- NOTE | 2020-08-28 06:33 | NUR ---
PAGED DR. JACKSON [phone] SPOKE WITH BOO
[2020-08-28 06:53] LABS: BASOPHILS % (AUTO) 0.1 % (0.0-2.0); EOSINOPHILS % (AUTO) 0.3 % (0.0-4.0); HEMATOCRIT 28.8 % (36-48); HEMOGLOBIN 8.9 g/dL (12.0-16.0); LYMPHOCYTES # (AUTO) 1.6 K/uL (1.0-5.5); MEAN CORPUSCULAR HEMOGLOBIN 27 pg (27-31); MEAN CORPUSCULAR HGB CONC 31 % (32-36); MEAN CORPUSCULAR VOLUME 87 fL (79.0-98.0); MONOCYTES % (AUTO) 7.6 % (1.7-9.3); NEUTROPHILS # (AUTO) 10.4 K/uL (1.8-7.7); PLATELET COUNT (AUTO) 144 K/uL (130-430); RED BLOOD CELL COUNT(AUTO) 3.32 MIL/uL (4.2-6.2); RED CELL DISTRIBUTION WIDTH 18.4 % (9.0-15.0)
[2020-08-28] MEDS: SEVELAMER CARBONATE 800 MG TABLET PO SCH ×3 (08:00→18:39)
[2020-08-28] MEDS: LORazepam 2 MG/ML VIAL IVP PRN ×2 (08:13→13:25)
[2020-08-28] MEDS: D5/0.45 NS 1,000 ML IV SCH (08:20)
[2020-08-28] MEDS: predniSONE 10 MG TABLET PO SCH ×2 (08:21→09:07)
[2020-08-28] MEDS ORDERED: PANTOPRAZOLE SODIUM 40 MG TAB ONE (09:05)
[2020-08-28 09:06] LABS: CALCIUM 8.9 mg/dL (8.4-11.0); POTASSIUM 5.1 mmol/L (3.5-5.1)
[2020-08-28] MEDS: DULoxetine HCL 30 MG CAPSULE.DR (CYMBALTA) PO SCH ×2 (09:06→21:40)
[2020-08-28] MEDS: BACLOFEN 10 MG TABLET PO SCH ×2 (09:07→21:40)
[2020-08-28] MEDS: PANTOPRAZOLE SODIUM 40 MG TAB PO SCH (09:07)
[2020-08-28] MEDS: NICOTINE 14 MG/24 HR PATCH.TD24 TD SCH (09:07)
[2020-08-28 10:13] LABS: CREATININE 11.24 mg/dL (0.55-1.30)
[2020-08-28 12:30] LABS: VANCOMYCIN,RANDOM 12.3 ug/mL
[2020-08-28] MEDS ORDERED: VANCOMYCIN HCL 1,000 MG in NS 250 ML IV ONE (14:00)
--- NOTE | 2020-08-28 16:00 | NUR ---
RN NOTES TACHYCARDIC, PATIENT REPOSITIONED FOR COMFORT.
--- NOTE | 2020-08-28 16:20 | NUR ---
RN NOTES DR. WILSON CALLED PER DR. BURGESS REQUEST, RE: REPLACEMENT OF NON FUNCTIONING DIALYSIS ACCESS.
--- NOTE | 2020-08-28 17:00 | NUR ---
RN NOTES FAMILY HERE TO SEE PATIENT, SPOKE TO DR. JACKSON RE: UPDATE
--- NOTE | 2020-08-28 18:00 | NUR ---
RN NOTES FAMILY REQUESTED FOR DNR, WILL PAGE DR. ABBASI TO TALK TO THE FAMILY.
--- NOTE | 2020-08-28 20:00 | NUR ---
OBTUNDED. ORALLY INTUBATED. SUCTIONED WITH MODERATE THIN YELLOW MUCUS OBTAINED. ORAL CARE GIVEN. ON NGT FEEDING WITH NEPRO AT 40CC/HR. RESIDUAL CHECK 5CC. MENDOZA CATH PATENT DRAINING OLIGURIC URINE TO GRAVITY.
[2020-08-28] MEDS: AMITRIPTYLINE HCL 25 MG TABLET (ELAVIL) PO SCH (21:40)
--- NOTE | 2020-08-28 22:00 | NUR ---
HS CARE DONE.
--- NOTE | 2020-08-28 23:55 | NUR ---
BLOOD CULTURES DRAWN.
[2020-08-29] VITALS (31 sets, daily range): BP systolic 91–162
--- NOTE | 2020-08-29 | NUR ---
NGT FLUSHED WITH 100CC H2O. NGT FEEDING INCREASED TO 50CC/HR. ORAL CARE DONE. SUCTIONED. TURNED.
--- NOTE | 2020-08-29 00:30 | NUR ---
DR BANGURA HERE, UPDATED ON STATUS. NO NEW ORDERS GIVEN.
--- NOTE | 2020-08-29 04:00 | NUR ---
SUCTIONED AGAIN WITH SAME RESULTS. ORAL CARE GIVEN. AM CARE DONE. NGT FEEDING INCREASED TO THE GOAL OF 60CC/HR.
--- NOTE | 2020-08-29 06:00 | NUR ---
OPENS EYES SPON. SUCTIONED AND TURNED Q2 HRS AND PRN. UO 5CC/12 HR. REMAINS INGUARDED CONDITION.
[2020-08-29 06:38] LABS: BASOPHILS % (AUTO) 0.2 % (0.0-2.0); EOSINOPHILS % (AUTO) 0.5 % (0.0-4.0); HEMATOCRIT 23.1 % (36-48); HEMOGLOBIN 7.3 g/dL (12.0-16.0); LYMPHOCYTES # (AUTO) 0.7 K/uL (1.0-5.5); LYMPHOCYTES % (AUTO) 8.1 % (20.5-51.5); MEAN CORPUSCULAR HEMOGLOBIN 27 pg (27-31); MEAN CORPUSCULAR HGB CONC 32 % (32-36); MEAN CORPUSCULAR VOLUME 85 fL (79.0-98.0); MONOCYTES # (AUTO) 0.5 K/uL (0.0-1.0); MONOCYTES % (AUTO) 5.7 % (1.7-9.3); NEUTROPHILS # (AUTO) 7.1 K/uL (1.8-7.7); NEUTROPHILS % (AUTO) 85.5 % (40.0-70.0); PLATELET COUNT (AUTO) 123 K/uL (130-430); RED BLOOD CELL COUNT(AUTO) 2.71 MIL/uL (4.2-6.2); RED CELL DISTRIBUTION WIDTH 18.4 % (9.0-15.0); WHITE BLOOD COUNT (AUTO) 8.4 K/uL (4.8-10.8)
[2020-08-29 07:27] LABS: CALCIUM 8.2 mg/dL (8.4-11.0); POTASSIUM 4.7 mmol/L (3.5-5.1)
--- NOTE | 2020-08-29 07:40 | NUR ---
Opening Note Received plan of care via sbar from endorsing RN.
[2020-08-29 08:05] LABS: CREATININE 11.19 mg/dL (0.55-1.30)
--- NOTE | 2020-08-29 08:30 | NUR ---
Dr. Stephens at bedside. Provided patient update. No new orders.
[2020-08-29 08:59] LABS: VANCOMYCIN,RANDOM 25.4 ug/mL
[2020-08-29] MEDS ORDERED: PANTOPRAZOLE SODIUM 40 MG TAB ONE (09:38)
[2020-08-29] MEDS: BACLOFEN 10 MG TABLET PO SCH ×2 (09:41→21:00)
[2020-08-29] MEDS: PANTOPRAZOLE SODIUM 40 MG TAB PO SCH (09:41)
[2020-08-29] MEDS: SEVELAMER CARBONATE 800 MG TABLET PO SCH ×3 (09:41→17:39)
[2020-08-29] MEDS: DULoxetine HCL 30 MG CAPSULE.DR (CYMBALTA) PO SCH ×2 (09:41→21:00)
[2020-08-29] MEDS: D5/0.45 NS 1,000 ML IV SCH (09:42)
[2020-08-29] MEDS: NICOTINE 14 MG/24 HR PATCH.TD24 TD SCH (09:43)
--- NOTE | 2020-08-29 10:08 | NUR ---
Dr. Carlin at bedside. Provided patient update and explained issues experienced with RIJ herbert cath. Received order to proceed with dialysis and contact him with the specific issues experienced during dialysis.
--- NOTE | 2020-08-29 10:40 | NUR ---
Paged Dr. Méndez and spoke to MD. Provided ABGS BUN and Cr and Hgb. No changes on Vent settings. Received order that if dialysis is being done give 1 unit of PRBC.
--- NOTE | 2020-08-29 10:57 | NUR ---
Spoke to Dr. Monroe and discussed critical BUN and Cr. Receive request to contact dialysis nurse to reach out to Dr. Carlin to provide details of dialysis catheter issues.
--- NOTE | 2020-08-29 11:50 | NUR ---
RT NOTES 1125 ASSISTED EDDIE HAYES AND KHADAR ROSENBAUM TO TAKE PT TO CT SCAN. PT WAS AMBU BEGGED ON 100%FIO2. VITAL SIGNS ARE STABLE DURING THE TRIP. 1145 RETURN TO PT ROOM. PT TOLERATED WELL.
[2020-08-29] MEDS: LORazepam 2 MG/ML VIAL IVP PRN (12:03)
--- NOTE | 2020-08-29 13:21 | NUR ---
Spoke to Rufina NIEVES RN and was informed that during dialysis on 08/28, the herbert catheter was not allowing blood to transfuse into the machine.
--- NOTE | 2020-08-29 14:00 | NUR ---
Spoke to Dr. Méndez on the phone to report non synchronized and tachypneic breathing. Explained that she has received 1 dose of ativan. Received order to start patient on diprivan IV drip.
[2020-08-29] MEDS ORDERED: PROPOFOL DRIP 100 ML IV ONE (14:15)
[2020-08-29] MEDS: EPOETIN ALFA 10,000 UNITS/ML VIAL SUBCUT SCH (17:39)
--- NOTE | 2020-08-29 19:40 | NUR ---
Opening note Received report and assumed care. Vent to ETT tolerating settings on AC 20. Picc line in place and patent. Sedated with Diprivan; no response to light stimuli. garcía catheter in place; very minimal output. RIJ dialysis catheter in place but as per report "not functioning". Reported Dr WILSON will be here in am to replace dialysis catheter. Orders for transfusion of one unit of PRBC was issued by Dr Méndez to be infused during dialysis; lab aware. Consent for blood transfusion obtained by this nurse and Halina MORGAN charge from mira Donahue. will continue to monitor.
--- NOTE | 2020-08-29 20:30 | NUR ---
Assessment completed. Patient repositioned for comfort. Patient using accessory muscles for breathing while on vent. Tolerating vent settings. will continue to monitor.
[2020-08-29] MEDS: AMITRIPTYLINE HCL 25 MG TABLET (ELAVIL) PO SCH (21:00)
[2020-08-30] VITALS (34 sets, daily range): BP systolic 88–138
[2020-08-30] MEDS: D5/0.45 NS 1,000 ML IV SCH (00:14)
--- NOTE | 2020-08-30 00:20 | NUR ---
Assessment completed. repositioned for comfort. No signs of distress noted. will continue to monitor.
[2020-08-30 07:18] LABS: HEMATOCRIT 23.6 % (36-48); HEMOGLOBIN 7.4 g/dL (12.0-16.0); LYMPHOCYTES # (AUTO) 1.1 K/uL (1.0-5.5); MEAN CORPUSCULAR HGB CONC 32 % (32-36); MONOCYTES # (AUTO) 0.5 K/uL (0.0-1.0); MONOCYTES % (AUTO) 3.7 % (1.7-9.3); PLATELET COUNT (AUTO) 180 K/uL (130-430)
[2020-08-30 07:22] LABS: BASOPHILS % (AUTO) 0.2 % (0.0-2.0); EOSINOPHILS % (AUTO) 0.3 % (0.0-4.0); LYMPHOCYTES % (AUTO) 8.8 % (20.5-51.5); MEAN CORPUSCULAR HEMOGLOBIN 27 pg (27-31); MEAN CORPUSCULAR VOLUME 85 fL (79.0-98.0); NEUTROPHILS # (AUTO) 10.8 K/uL (1.8-7.7); RED BLOOD CELL COUNT(AUTO) 2.76 MIL/uL (4.2-6.2); RED CELL DISTRIBUTION WIDTH 19.5 % (9.0-15.0); WHITE BLOOD COUNT (AUTO) 12.4 K/uL (4.8-10.8)
--- NOTE | 2020-08-30 07:27 | NUR ---
Opening Note Received plan of care via sbar from endorsing RN.
--- NOTE | 2020-08-30 08:15 | NUR ---
Dr. Stephens at bedside. Provided patient update. No new orders.
[2020-08-30] MEDS: BACLOFEN 10 MG TABLET PO SCH ×2 (09:07→23:01)
[2020-08-30] MEDS: SEVELAMER CARBONATE 800 MG TABLET PO SCH ×3 (09:07→18:02)
[2020-08-30] MEDS: NICOTINE 14 MG/24 HR PATCH.TD24 TD SCH (09:07)
[2020-08-30] MEDS: predniSONE 10 MG TABLET PO SCH (09:07)
[2020-08-30] MEDS: DULoxetine HCL 30 MG CAPSULE.DR (CYMBALTA) PO SCH ×2 (09:07→23:01)
[2020-08-30] MEDS ORDERED: PANTOPRAZOLE SODIUM 40 MG TAB ONE (09:12)
[2020-08-30] MEDS: PANTOPRAZOLE SODIUM 40 MG TAB PO SCH (09:12)
--- NOTE | 2020-08-30 09:36 | NUR ---
Spoke to Dr. Méndez and provided patient update. Provided ABG with critical values and received order for 1 AMP Bicarb IV push.
[2020-08-30] MEDS ORDERED: SODIUM BICARBONATE 8.4% JECT 50 MEQ/50 ML SYRINGE IVP ONE (09:45)
--- NOTE | 2020-08-30 09:46 | NUR ---
SHADE rounding for Dr. Carlin and Dr. WILSON at bedside. Provided patient update. Explained the situation regarding need to replace Herbert Catheter and that Dr. Carlin said he would be in the AM to replace catheter. SHADE explained that Dr. Carlin had a surgical procedure that required his attention in [place]. He will be by this afternoon (no specific time) to complete insertion of herbert catheter.
--- NOTE | 2020-08-30 09:47 | NUR ---
Nutrition F/U RD reviewed pt's current EMR record including diet Hx, physician notes, nursing notes, pertinent labs/meds/procedures, care trends, and care activity. Admission Dx: Rule Out Myocardial Infarction, End Stage Renal Failure PMH: COPD, ESRD on HD, Cardiac Disorder, HTN, CAD, Dyslipidemia, and Atherosclerotic Heart Disease with previous stent placement per physician notes. Found w/ Severe Malnutrition, acute on chronic mild decompensation of CHF, Anemia of CKD per physician notes. SARS-CoV-2 Ag (Rapid) Negative 08/16 Pt is s/p cardiopulmonary arrest 08/23; plans for HD tomorrow; possible withdrawal of care d/t possible brain per EEG; no longer sedated per EMR review 08/27 Current Diet Order/Nutrition Support: TF Nepro at 60 ml/hr (goal rate); 100 cc q6h x2 days; Current rate: 40 ml/hr Provides: 1728 kcal, 78 g protein, 1098 ml total H2O Subjective Info: Per EMR -- pt remains intubated, on vent support. Per neurologist note, pt's EEG showed pt w/o out brain . Code status has been changed to DNR/DNI per MD note. Started on TF Nepro on 08/28 and current infusion rate is at 40 ml/hr w/ minimal residuals noted. Current TF regimen at current rate is already meeting 100% of estimated kcal and protein needs. Recommend modify goal rate to 40 ml/hr to avoid overfeeding pt on vent. Abdomen is soft/active bowel sounds. LBM x 2 08/26. Noted pt not expected to survive per MD note. Pertinent Medications Procrit, Protonix, Zofran, Renvela, Prednisone, IVF Pertinent Labs BUN 124 H, CRE 11.19 H, eGFR 4 L, phos 4.9 H Skin Integrity Comment: Sav Score: 12; L/R arm noted w/ wound; generalized 2+ pitting edema per EMR Current % PO N/A, on EN NEW Estimated Energy Expenditure (kcals/day) -- Minute volume: 10.9/temperature: 37.3 degrees C 6074-0395 kcal/day (25-30 kcal/kg CBW critical illness, intubated on vent support, BMI < 30) Estimated Protein Required (g/day) 76-82 gm/day (1.2-1.3g/kg based on CBW for ESRD on HD) Estimated Fluid Required (l/day) Deferred to MD d/t hx of ESRD Problem/Etiology/Signs/Symptoms Altered nutrition related lab values r/t hx of end stage renal failure requiring dialysis AEB elevated BUN/Cr and Phosphorous, and low GFR. *ongoing Inadequate protein energy intake r/t likely confusion and prior reports of chewing difficulty AEB pt with 31% avg intake x 6 meals and 5 meals refused, and 50% PO intake this AM per RD d/w RN. *no longer applicable Suboptimal nutritional intakes related to metabolic demands as evidenced by no current nutrition support. *resolved, pt on EN support Expected Outcomes/Goals Monitor EN tolerance w/ goal of pt meeting at least 75% of estimated nutritional needs, labs trending WNL, normal GI function, and skin integrity/wt maintenance. Dietitian Recommendations * Recommend modify TF Nepro goal rate to 40 ml/hr. FWF 100 q6h (per MD) Provides: 1728 kcal, 78 g protein, 1098 ml H2O, meeting 112% of lower end of estimated kcal needs and 103% of lower end of estimated protein needs. Follow Up High Risk: F/U in 2-3 days
--- NOTE | 2020-08-30 10:00 | NUR ---
Called Joanne (son) to discuss consent to replace HD catheter. Son requested for Dr. Victor to contact him regarding possible comfort measures and extubation. Their family would prefer their mom not to continue suffering. Called Dr. Victor provided # to Joanne and provided update.
--- NOTE | 2020-08-30 10:02 | NUR ---
Dietitian Recommendations * Recommend modify TF Nepro goal rate to 40 ml/hr. FWF 100 q6h (per MD) Provides: 1728 kcal, 78 g protein, 1098 ml H2O, meeting 112% of lower end of estimated kcal needs and 103% of lower end of estimated protein needs. Please see Nutrition F/U for details. EP,RD
[2020-08-30 10:08] LABS: CALCIUM 8.1 mg/dL (8.4-11.0); POTASSIUM 5.4 mmol/L (3.5-5.1)
--- NOTE | 2020-08-30 10:10 | NUR ---
Called Dr. Victor and provided an update regarding families request to speak to him and possibly change care. Provided varun Rubio's #. to call.
[2020-08-30 10:11] LABS: CREATININE 12.08 mg/dL (0.55-1.30)
[2020-08-30] MEDS: PROPOFOL DRIP 100 ML IV PRN (11:18)
--- NOTE | 2020-08-30 12:24 | NUR ---
Called Dr. Victor to follow up. Explained that Dr. Carlin will be coming this afternoon and we need to know how to proceed with any future procedures. MD to call son as requested earlier. Provided BUN and Creatinine and Potassium. MD to call family first before deciding how to proceed forward.
[2020-08-30 13:04] LABS: VANCOMYCIN,RANDOM 21.4 ug/mL
--- NOTE | 2020-08-30 14:09 | NUR ---
Dr. Monroe at bedside. Provided patient update and discussed current situation with replacement of the herbert cath and dialysis. Valente to speak to family about possibly changing care as family requested. MD is aware of elevated BUN and Creatinine and has advised to proceed with dialysis catheter placement and HD if we do not hear back from Dr. Victor.
--- NOTE | 2020-08-30 14:15 | NUR ---
Called Dr. Victor and was informed that the family has decided to proceed with terminal extubation. Received request to reach out to family to coordinate a time for them to see their mother. Received order for morphine drip IV start at 1 mg/hr.
--- NOTE | 2020-08-30 14:22 | NUR ---
Called son Joanne who confirmed the decision to terminally extubate. He and his brothers wanted to be there when this is done and requested to hold off until 08/31 evening. He will be contacting his brother in [place] to see how soon he can make it. Likely is tomorrow evening for the terminal extubation.
--- NOTE | 2020-08-30 14:25 | NUR ---
HIGH ALERT NOTE: Called Dr. Victor back at [phone] identified within the medical roster to verify physician authenticity.
[2020-08-30] MEDS ORDERED: NALOXONE HCL 0.4 MG/ML AMP (NARCAN) IVP PRN (14:30)
[2020-08-30] MEDS ORDERED: MORPHINE I.V. DRIP 100 ML IV PRN (14:30)
--- NOTE | 2020-08-30 19:14 | NUR ---
Closing Note Provided plan of care via sbar to receiving RN.
--- NOTE | 2020-08-30 20:00 | NUR ---
ASSESSMENT Pt obtunded, opens eyes with tactile stimulation. Pt orally intubated. Tolerating current vent settings. PICC line present right upper arm. Dressing intact no redness or swelling noted @ site. RIJ present. Pt having coffee ground oral secretions. Right nare with NGT in place. Tube checked for placement by irrigating with air. Continuous feeding in progress. Pt tolerating .
[2020-08-30] MEDS: AMITRIPTYLINE HCL 25 MG TABLET (ELAVIL) PO SCH (23:01)
[2020-08-31] VITALS (28 sets, daily range): BP systolic 104–174
[2020-08-31] MEDS: PROPOFOL DRIP 100 ML IV PRN (02:25)
[2020-08-31] MEDS: D5/0.45 NS 1,000 ML IV SCH (07:45)
--- NOTE | 2020-08-31 08:00 | NUR ---
RN NOTES ON SAME VENT SETTING, SPO2 GOOD. DIPRIVAN DRIP INFUSING AT 10 MCG/KG /MIN SINUS TACHYCADIA ON THE MONITOR. NGT IN PLACE, COFFEE GROUND ASPIRATE NOTED. NGT TO LOW INTERMITTENT SUCTION.
[2020-08-31] MEDS: NICOTINE 14 MG/24 HR PATCH.TD24 TD SCH (09:00)
[2020-08-31] MEDS ORDERED: VANCOMYCIN HCL 500 MG in NS 100 ML IV ONE (09:00)
[2020-08-31] MEDS: BACLOFEN 10 MG TABLET PO SCH (09:39)
[2020-08-31] MEDS: predniSONE 10 MG TABLET PO SCH (09:39)
[2020-08-31] MEDS: DULoxetine HCL 30 MG CAPSULE.DR (CYMBALTA) PO SCH (09:39)
[2020-08-31] MEDS: SEVELAMER CARBONATE 800 MG TABLET PO SCH ×3 (09:39→18:00)
[2020-08-31] MEDS ORDERED: PANTOPRAZOLE SODIUM 40 MG TAB ONE (09:42)
[2020-08-31] MEDS: PANTOPRAZOLE SODIUM 40 MG TAB PO SCH (09:44)
[2020-08-31] MEDS: EPOETIN ALFA 10,000 UNITS/ML VIAL SUBCUT SCH (17:00)
--- NOTE | 2020-08-31 17:30 | NUR ---
RN NOTES FAMILY AT BEDSIDE, REQUESTED FOR A MONEY ROOM SUPERVISOR. PLAN ON TERMINAL EXTUBATION.
--- NOTE | 2020-08-31 18:48 | NUR ---
CALLED -[facility] [phone] SPOKE WITH CORIE
--- NOTE | 2020-08-31 20:30 | NUR ---
DR RENETTA Méndez here evaluating pt.
--- NOTE | 2020-08-31 20:30 | NUR ---
EXTUBATION Pt terminally extubated. Diprivan drip stopped. Morphine increased to 2mg/Hr, heart rate increasing during extubation.
--- NOTE | 2020-08-31 20:30 | NUR ---
MOOK HUITRON RN INCREASE MORPHINE DRIP FROM 1 MG TO 2MG/HR AND TURN DIPRIVAN DRIP OFF.
--- NOTE | 2020-08-31 21:00 | NUR ---
WITNESSED TOMY RN INCREASE MORPHINE DRIP FROM 2MG TO 3MG/HR.
--- NOTE | 2020-08-31 21:00 | NUR ---
WITNESSED RN TITRATE MORPHINE TO 3MG
--- NOTE | 2020-08-31 21:45 | NUR ---
WITNESSED RN TITRATE MORPHINE TO 4MG
--- NOTE | 2020-08-31 21:45 | NUR ---
WITNESSED TOMY RN INCREASE MORPHINE DRIP FROM 3MG/HR TO 4 MG/HR.
--- NOTE | 2020-08-31 23:02 | NUR ---
TIME OF : 2 RNS VERIFIED TIME OF , NO PULSE, NO RESPIRATIONS NO BLOOD PRESSURE.
--- NOTE | 2020-08-31 23:29 | NUR ---
MDs NOTIFIED OF PATIENT EXPIRATION DR. ABBASI [phone] SPOKE WITH ARCHIE BANGURA [phone] SPOKE WITH AURE CABRERA [phone] SPOKE WITH BOO JACKSON [phone] SPOKE WITH BOO BURGESS [phone] SPOKE WITH JENNA
--- NOTE | 2020-09-01 00:30 | NUR ---
POST MORTEM At [address] [employer] called to report the , hvac residential service technician released the body. Name given Tardie given. [facility]. [facility] released the body. Reference number given [id number]. Addendum: 09/01/20 at 0421 by Rae Galloway RN POST MORTEM At [address] [employer] D[employer] called to report the , hvac residential service technician released the body. Name given Tardie given. [address] [facility] notified. [facility] released the body. Reference number given [id number]. Security here to take body to body hold.
--- NOTE | 2020-09-01 11:59 | NUR ---
SS notes/mortuary: RAIL SIGNAL MECHANIC received a call from dtautumn, [facility] Arita ([phone]) who is making arrangements through [employer] [facility] in [place] ([phone]. [facility] with [facility]. Pt's son Joanne is aware.
== END 2020-08-31 23:02 | disposition expired | DRG 698 ==
LOC: SED 13:38 → STU 15:44 → SIC 08-23 09:39
PROVIDERS: ADMIT Internal Medicine; ATTEND Internal Medicine
PROC: 5A1D70Z Performance of Urinary Filtration, Intermittent, Less than 6 Hours Per Day (ICD-10-PCS; 2020-08-17)
PROC: 5A1D70Z Performance of Urinary Filtration, Intermittent, Less than 6 Hours Per Day (ICD-10-PCS; 2020-08-18)
PROC: 5A1D70Z Performance of Urinary Filtration, Intermittent, Less than 6 Hours Per Day (ICD-10-PCS; 2020-08-20)
PROC: 5A1D70Z Performance of Urinary Filtration, Intermittent, Less than 6 Hours Per Day (ICD-10-PCS; 2020-08-22)
PROC: 0BH17EZ Insertion of Endotracheal Airway into Trachea, Via Natural or Artificial Opening (ICD-10-PCS; principal; 2020-08-23)
PROC: 5A1955Z Respiratory Ventilation, Greater than 96 Consecutive Hours (ICD-10-PCS; 2020-08-23)
PROC: B548ZZA Ultrasonography of Superior Vena Cava, Guidance (ICD-10-PCS; 2020-08-23)
PROC: 02HV33Z Insertion of Infusion Device into Superior Vena Cava, Percutaneous Approach (ICD-10-PCS; 2020-08-23)
PROC: 5A1D70Z Performance of Urinary Filtration, Intermittent, Less than 6 Hours Per Day (ICD-10-PCS; 2020-08-24)
PROC: 0JPVXXZ Removal of Tunneled Vascular Access Device from Upper Extremity Subcutaneous Tissue and Fascia, External Approach (ICD-10-PCS; 2020-08-24)
PROC: 05PYX3Z Removal of Infusion Device from Upper Vein, External Approach (ICD-10-PCS; 2020-08-24)
PROC: 02HV33Z Insertion of Infusion Device into Superior Vena Cava, Percutaneous Approach (ICD-10-PCS; 2020-08-24)
PROC: B548ZZA Ultrasonography of Superior Vena Cava, Guidance (ICD-10-PCS; 2020-08-24)
PROC: 5A1D70Z Performance of Urinary Filtration, Intermittent, Less than 6 Hours Per Day (ICD-10-PCS; 2020-08-26)
PROC: 5A1D70Z Performance of Urinary Filtration, Intermittent, Less than 6 Hours Per Day (ICD-10-PCS; 2020-08-28)
PROC: 5A1D70Z Performance of Urinary Filtration, Intermittent, Less than 6 Hours Per Day (ICD-10-PCS; 2020-08-30)
DX: T82.41XA Breakdown (mechanical) of vascular dialysis catheter, initial encounter (principal); E43 Unspecified severe protein-calorie malnutrition; N18.6 End stage renal disease; J96.01 Acute respiratory failure with hypoxia; I50.33 Acute on chronic diastolic (congestive) heart failure; K72.00 Acute and subacute hepatic failure without coma; E87.1 Hypo-osmolality and hyponatremia; E87.2 Acidosis; G93.1 Anoxic brain damage, not elsewhere classified; I13.2 Hypertensive heart and chronic kidney disease with heart failure and with stage 5 chronic kidney disease, or end stage renal disease; Z99.11 Dependence on respirator [ventilator] status; I24.9 Acute ischemic heart disease, unspecified; D63.1 Anemia in chronic kidney disease; Z51.5 Encounter for palliative care; Z66 Do not resuscitate; D69.6 Thrombocytopenia, unspecified; E78.5 Hyperlipidemia, unspecified; I25.10 Atherosclerotic heart disease of native coronary artery without angina pectoris; I46.9 Cardiac arrest, cause unspecified; I73.9 Peripheral vascular disease, unspecified; J44.9 Chronic obstructive pulmonary disease, unspecified; Z20.828 Contact with and (suspected) exposure to other viral communicable diseases; F17.210 Nicotine dependence, cigarettes, uncomplicated; A49.02 Methicillin resistant Staphylococcus aureus infection, unspecified site; Y84.1 Kidney dialysis as the cause of abnormal reaction of the patient, or of later complication, without mention of misadventure at the time of the procedure; Z86.73 Personal history of transient ischemic attack (TIA), and cerebral infarction without residual deficits; I25.2 Old myocardial infarction; Z90.710 Acquired absence of both cervix and uterus; Z99.2 Dependence on renal dialysis; Z68.22 Body mass index [BMI] 22.0-22.9, adult; Z88.0 Allergy status to penicillin; Z91.041 Radiographic dye allergy status; Z88.8 Allergy status to other drugs, medicaments and biological substances; Z79.82 Long term (current) use of aspirin; Z79.899 Other long term (current) drug therapy; Y92.89 Other specified places as the place of occurrence of the external cause; Z95.5 Presence of coronary angioplasty implant and graft
CPT/HCPCS: 36415; 36600; 70450-TC; 71045; 71250-TC; 72100-TC; 76376; 80048; 80053; 80202-TC; 82140-TC; 82550-TC; 82803-TC; 82962; 83735-TC; 83880; 84100-TC; 84484; 85025; 85610-TC; 85730-TC; 86886; 86900; 86901; 86920; 87040-TC; 87070-TC; 87081; 87186-TC; 87205-TC; 90935; 90937; 92610-GN; 93005; 94002; 94003; 94640; 95816; 95824; 99285; C1751; G0378; J0360; J0885; J1644; J2060; J2270; J2405; J2704; J2997; J3370; J3490; J7030; J7042; J7050; J7512; P9046